=== PATIENT | female | born 1955 | race African-American/Black ===

== ENCOUNTER 2017-12-28 05:30 | Inpatient (IN) | payer SELFPAY ==
[2017-12-28] MEDS ORDERED: ONDANSETRON 4 MG/2 ML VIAL ONE (05:55)
[2017-12-28 06:08] LABS: Absolute Lymphocytes (CBC) 2.6 K/uL (0.7-4.9); Absolute Monocytes 0.8 K/uL (0.1-1.3); Absolute Neutrophil 8.9 K/uL (1.8-8.0); Basophils % 0.3 % (0-1.3); Eosinophils % 1.8 % (0-4.4); Hematocrit 40.8 % (36.0-45.0); Lymphocytes % 20.8 % (15.3-44.8); MCH 26.1 pg (27.0-35.0); MCV 80.9 fL (80-100); MPV 10.2 fL (7.6-11.3); RBC Red Blood Cell Count 5.04 M/uL (3.86-4.86)
[2017-12-28 06:18] LABS: ALT/SGPT 16 U/L (12-78); AST/SGOT 12 U/L (15-37); Albumin 3.4 g/dL (3.4-5.0); Alkaline Phosphatase 113 U/L (45-117); BUN Blood Urea Nitrogen 16 mg/dL (7-18); Bicarbonate 27 mmol/L (21-32); Bilirubin Direct < 0.1 mg/dL (0-0.2); Bilirubin Total 0.3 mg/dL (0.2-1.0); Glucose Level 155 mg/dL (74-106); Lipase 83 U/L (73-393); Potassium 3.9 mmol/L (3.5-5.1); Protein, Total 7.8 g/dL (6.4-8.2); Sodium Level 141 mmol/L (136-145)
[2017-12-28] MEDS ORDERED: CEFTRIAXONE/SWI 1gm 1 GM/10 ML SYR ONE (07:05)
[2017-12-28] MEDS ORDERED: NA CHLORIDE 0.9% 1,000 ML ONE (07:35)
[2017-12-28] MEDS ORDERED: MORPHINE 4 MG/ML SYR ONE (07:35)
[2017-12-28] MEDS ORDERED: KETOROLAC 30 MG/ML INJ ONE (07:35)
--- NOTE | 2017-12-28 08:54 | EDPHYS ---
Physician Documentation [facility] Name: Ethel Allen Age: 62 yrs Sex: Female : 1955 Arrival Date: 12/28/2017 Time: 05:35 Bed 8 Private MD: ED Physician Jeramy Asif HPI: 12/28 06:32 This 62 yrs old Black Female presents to ER via EMS with complaints of Flank Pain. [facility] 06:32 The patient complains of pain in the left flank. The pain does not radiate. Onset: The [facility] symptoms/episode began/occurred acutely, last night. Modifying factors: The symptoms are alleviated by nothing. the symptoms are aggravated by nothing. This is a 62 year old female with a history of HTN that presents to the ED with left flank pain beginning acutely last night. Patient admits to hematuria. Denies fever. Denies recent surgery. . Historical: - Allergies: 05:40 No Known Allergies; fc - Home Meds: 05:40 None [Active]; fc - PMHx: 05:40 ARTHRITIS MARY LEG; Enlarged Heart; Gout; Hypertension; fc - PSHx: 05:40 None; fc - Immunization history:: Last tetanus immunization: unknown. - Social history:: Smoking status: Patient uses tobacco products, chewing tobacco. - Ebola Screening: : Patient negative for fever greater than or equal to 101.5 degrees Fahrenheit, and additional compatible Ebola Virus Disease symptoms Patient denies exposure to infectious person Patient denies travel to an Ebola-affected area in the 21 days before illness onset. ROS: 06:32 Constitutional: Negative for fever, chills, and weight loss, Cardiovascular: Negative jm for chest pain, palpitations, and edema, Respiratory: Negative for shortness of breath, cough, wheezing, and pleuritic chest pain. 06:32 MS/Extremity: Negative for injury and deformity, Skin: Negative for injury, rash, and discoloration, Neuro: Negative for headache, weakness, numbness, tingling, and seizure. 06:32 Abdomen/GI: Positive for flank pain. 06:32 All other systems are negative. Exam: 06:32 Head/Face: atraumatic. Chest/axilla: Normal chest wall appearance and motion. jm Cardiovascular: Regular rate and rhythm. No edema appreciated Respiratory: Normal respirations, no respiratory distress appreciated 06:32 Constitutional: The patient appears in no acute distress, alert, awake. 06:32 Abdomen/GI: Inspection: obese Bowel sounds: normal, Palpation: abdomen is soft and non-tender, in all quadrants. 06:32 Back: CVA tenderness, that is mild, is noted on the left. 06:32 Musculoskeletal/extremity: ROM: intact in all extremities. 06:32 Skin: Appearance: Color: normal in color. 06:32 Neuro: Orientation: is normal, Mentation: is normal, Memory: is normal. 06:32 Psych: Behavior/mood is pleasant, cooperative. Vital Signs: 05:35 BP 193 / 110; Pulse 98; Resp 18; Temp 98.0(O); Pulse Ox 95% on R/A; Weight 176.9 kg fc (R); Height 5 ft. 5 in. (165.10 cm) (R); Pain 9/10; 06:30 BP 186 / 83; Pulse 86; Resp 18; Pulse Ox 97% on R/A; Pain 5/10; tl2 07:00 BP 187 / 83; Pulse 88; Resp 18; Pulse Ox 95% ; sv 07:44 BP 172 / 98; Pulse 87; Resp 18; Pulse Ox 98% ; sv 08:52 BP 184 / 92; Pulse 83; Resp 18; Pulse Ox 97% ; sv 09:48 BP 178 / 88; Pulse 87; Resp 18; Pulse Ox 98% on R/A; Pain 3/10; sg 05:35 Body Mass Index 64.90 (176.90 kg, 165.10 cm) fc MDM: 06:15 Patient medically screened. [facility] 08:51 Data reviewed: vital signs, nurses notes, lab test result(s), radiologic studies, CT [facility] scan. Data interpreted: Pulse oximetry: on room air is 98 %. Interpretation: normal. Counseling: I had a detailed discussion with the patient and/or guardian regarding: the historical points, exam findings, and any diagnostic results supporting the discharge/admit diagnosis, lab results, radiology results, the need for further work-up and treatment in the hospital. ED course: I discussed the patient with Dr. Chand whom accepted admission. I discussed the patient with Dr. Archuleta whom will consult on admission. . 12/28 05:43 Order name: Basic Metabolic Panel; Complete Time: 06:44 tl2 12/28 05:43 Order name: CBC with Diff; Complete Time: 06:44 tl2 12/28 05:43 Order name: Creatinine for Radiology; Complete Time: 06:15 tl2 12/28 05:43 Order name: Hepatic Function; Complete Time: 06:44 tl2 12/28 05:43 Order name: Lipase; Complete Time: 06:44 tl2 12/28 05:43 Order name: CT Stone Protocol 2 12/28 05:43 Order name: IV Saline Lock; Complete Time: 05:43 tl2 12/28 05:43 Order name: Labs collected and sent; Complete Time: 05:43 tl2 12/28 08:24 Order name: Abdomen 1 View (KUB) XRAY jmm Administered Medications: 05:53 Drug: Zofran 4 mg Route: IVP; Site: left antecubital; tl2 07:04 Follow up: Response: No adverse reaction; Nausea is decreased tl2 07:04 Drug: Rocephin - (cefTRIAXone) 1 grams Route: IVPB; Infused Over: 30 mins; Site: left tl2 antecubital; 07:38 Drug: Ketorolac 30 mg Route: IVP; Site: left antecubital; sg 07:38 Drug: NS 0.9% 1000 ml Route: IV; Rate: 1 bolus; Site: left antecubital; sg 07:38 Drug: morphine 2 mg Route: IVP; Site: left antecubital; sg Disposition: 12/28/17 08:53 Hospitalization ordered by Abraham Chand for Observation. Preliminary diagnosis are Calculus of kidney and ureter, Urinary tract infection, site not specified. - Bed requested for Telemetry/MedSurg (observation). - Status is Observation. sg - Condition is Stable. - Problem is new. - Symptoms have improved. UTI on Admission? Yes Addendum: 01/12/2018 07:21 Co-signature as Attending Physician, Jeramy Asif MD Available for consultation at p s1 all times. . Signatures: Dispatcher [employer] EDSergio Jackson, RN Gary Valentino PA PA jmm Chretien, Felicia RN AASHISH Yue Quinteros RN RN 2 Ethel Calixto RN RN df Singer, Phillip, MD MD ps1 Corrections: (The following items were deleted from the chart) 09/22 09:13 08:53 Hospitalization Ordered by Abraham Chand MD for Observation. Preliminary df diagnosis is Calculus of kidney and ureter; Urinary tract infection, site not specified. Bed requested for Telemetry/MedSurg (observation). Status is Observation. Condition is Stable. Problem is new. Symptoms have improved. UTI on Admission? Yes. [facility] 10:02 09:13 12/28/2017 08:53 Hospitalization Ordered by Abraham Chand MD for Observation. sg Preliminary diagnosis is Calculus of kidney and ureter; Urinary tract infection, site not specified. Bed requested for Telemetry/MedSurg (observation). Status is Observation. Condition is Stable. Problem is new. Symptoms have improved. UTI on Admission? Yes. df
--- NOTE | 2017-12-28 08:54 | ER ---
Nurse's Notes [facility] Name: Ethel Allen Age: 62 yrs Sex: Female : 1955 Arrival Date: 12/28/2017 Time: 05:35 Bed 8 Private MD: Diagnosis: Calculus of kidney and ureter;Urinary tract infection, site not specified Presentation: 12/28 05:35 Presenting complaint: Patient states: that she is having left sided flank pain that started at 0230. Also has a headache. Pt bp high per EMS at 225/121 but pt is supposed to be taking Coreg 25 mg daily. Losartan/HCTZ 100/25 mg daily, Amlodipine daily, and Allopurinol 100 mg daily but cannot afford them. Transition of care: patient was not received from another setting of care. Onset of symptoms was December 28, 2017 at 02:30. Risk Assessment: Do you want to hurt yourself or someone else? Patient reports no desire to harm self or others. Initial Sepsis Screen: Does the patient meet any 2 criteria? HR > 90 bpm. Yes Does the patient have a suspected source of infection? No. Patient's initial sepsis screen is negative. Care prior to arrival: Medication(s) given: Toradol 30 mg ivp IV initiated. 20 GA, in the left antecubital area, Glucose check: 154. 05:35 Method Of Arrival: EMS: [facility] 05:35 Acuity: REYNA 3 fc Historical: - Allergies: 05:40 No Known Allergies; fc - Home Meds: 05:40 None [Active]; fc - PMHx: 05:40 ARTHRITIS MARY LEG; Enlarged Heart; Gout; Hypertension; fc - PSHx: 05:40 None; fc - Immunization history:: Last tetanus immunization: unknown. - Social history:: Smoking status: Patient uses tobacco products, chewing tobacco. - Ebola Screening: : Patient negative for fever greater than or equal to 101.5 degrees Fahrenheit, and additional compatible Ebola Virus Disease symptoms Patient denies exposure to infectious person Patient denies travel to an Ebola-affected area in the 21 days before illness onset. Screenin:38 Abuse screen: Denies threats or abuse. Nutritional screening: No deficits noted. Tuberculosis screening: No symptoms or risk factors identified. Fall Risk None identified. Assessment: 05:35 General: Appears in no apparent distress. uncomfortable, Behavior is calm, cooperative, tl2 appropriate for age. Pain: Complains of pain in left flank. Neuro: Level of Consciousness is awake, alert, obeys commands, Oriented to person, place, time, situation. Respiratory: Airway is patent Respiratory effort is even, unlabored, Respiratory pattern is regular, symmetrical. GI: Reports nausea, vomiting. : No signs and/or symptoms were reported regarding the genitourinary system. Derm: Skin is pink, warm \\T\\ dry. 06:30 Reassessment: Patient appears in no apparent distress at this time. Patient and/or tl2 family updated on plan of care and expected duration. Pain level reassessed. Patient is alert, oriented x 3, equal unlabored respirations, skin warm/dry/pink. 07:39 Reassessment: Patient appears in no apparent distress at this time. Patient and/or sg family updated on plan of care and expected duration. Pain level reassessed. Patient is alert, oriented x 3, equal unlabored respirations, skin warm/dry/pink. Patient states symptoms have not improved. 09:15 Reassessment: pt IV dc'd while off unit in Xray per EloiseAudience, will insert new IV sg when pt returns from xray. 09:50 Reassessment: pt reports hives to right forearm, reports "had them before from time to sg time but never this bad." Val JACINTO notified, pt to be admitted to 229 at this time. 10:02 Respiratory: Airway is patent Respiratory effort is even, unlabored, Respiratory sg pattern is regular, symmetrical, Denies cough, shortness of breath labored breathing, pain with respiration, pain with cough, pain with movement. Vital Signs: 05:35 BP 193 / 110; Pulse 98; Resp 18; Temp 98.0(O); Pulse Ox 95% on R/A; Weight 176.9 kg fc (R); Height 5 ft. 5 in. (165.10 cm) (R); Pain 9/10; 06:30 BP 186 / 83; Pulse 86; Resp 18; Pulse Ox 97% on R/A; Pain 5/10; tl2 07:00 BP 187 / 83; Pulse 88; Resp 18; Pulse Ox 95% ; sv 07:44 BP 172 / 98; Pulse 87; Resp 18; Pulse Ox 98% ; sv 08:52 BP 184 / 92; Pulse 83; Resp 18; Pulse Ox 97% ; sv 09:48 BP 178 / 88; Pulse 87; Resp 18; Pulse Ox 98% on R/A; Pain 3/10; sg 05:35 Body Mass Index 64.90 (176.90 kg, 165.10 cm) ED Course: 05:35 Patient arrived in ED. fc 05:35 Arm band placed on Patient placed in an exam room, on a stretcher. fc 05:37 Triage completed. fc 05:38 Patient has correct armband on for positive identification. Bed in low position. Call fc light in reach. Side rails up X2. Pulse ox on. NIBP on. 05:38 No provider procedures requiring assistance completed. Maintain EMS IV. Dressing fc intact. Good blood return noted. Site clean \\T\\ dry. Gauge \\T\\ site: 20 gauge to left a/c. 05:[address] via stretcher. kw1 06:07 Gary Fermin PA is PHCP. jm 06:07 Jeramy Asif MD is Attending Physician. jmm 06:16 CT Stone Protocol In Process Unspecified. EDMS 06:20 CT completed. Patient tolerated procedure well. Patient moved back from CT. kw1 07:37 Sergio Conway, RN is Primary Nurse. sg 08:53 Abraham Chand MD is Hospitalizing Provider. jmm 09:49 Inserted saline lock: 22 gauge in left hand, using aseptic technique. sg 10:01 Patient admitted, IV remains in place. intact, No redness/swelling at site. sg Administered Medications: 05:53 Drug: Zofran 4 mg Route: IVP; Site: left antecubital; tl2 07:04 Follow up: Response: No adverse reaction; Nausea is decreased tl2 07:04 Drug: Rocephin - (cefTRIAXone) 1 grams Route: IVPB; Infused Over: 30 mins; Site: left tl2 antecubital; 07:38 Drug: Ketorolac 30 mg Route: IVP; Site: left antecubital; sg 07:38 Drug: NS 0.9% 1000 ml Route: IV; Rate: 1 bolus; Site: left antecubital; sg 07:38 Drug: morphine 2 mg Route: IVP; Site: left antecubital; sg Outcome: 08:53 Decision to Hospitalize by Provider. derek 10:01 Admitted to Tele accompanied by tech, via wheelchair, room 229, with chart, Report sg called to Maryana ZENDEJAS 10:01 Condition: good 10:01 Instructed on the need for admit, safety practices, Demonstrated understanding of instructions, follow-up care. 10:02 Patient left the ED. sg Signatures: Dispatcher [employer] Katiuska De Anda RN RN sv Gay, Steven, RN RN Gary Arredondo PA PA jmm Chretien, Felicia, RN RN Yue Quinteros RN RN tl2 Suzan Weller kw1 Corrections: (The following items were deleted from the chart) 05:41 05:35 Presenting complaint: Patient states: that she is having left sided flank pain fc that started at 0230. Also has a headache. Pt bp high per EMS at 225/121 but pt is supposed to be taking Coreg, Losartan, Amlodipine, and Allopurinol but cannot afford them. fc
[2017-12-28] MEDS ORDERED: MORPHINE 2 MG/ML SYR IV PRN (10:08)
--- NOTE | 2017-12-28 10:13 | P.HP ---
Certification for Inpatient With expected LOS: <2 Midnights Patient will require the following post-hospital care: None Practitioner: I am a practitioner with admitting privileges, knowledge of patient current condition, hospital course, and medical plan of care. Services: Services provided to patient in accordance with Admission requirements found in Title 42 Section 412.3 of the Code of Federal Regulations Patient History Date of Service: 12/29/17 Reason for admission: Left-sided flank pain hematuria History of Present Illness: Patient is 62 years of age admitted with left-sided flank pain history of recent hematuria headaches and was admitted to the hospital denies any fever chills no prior history of genitourinary problems Allergies No Known Allergies Allergy (Verified 12/28/17 10:43) Home medications list reviewed: Yes Home Medications: Allopurinol 100 mg PO DAILY 12/28/17 Amlodipine Besylate 5 mg PO DAILY 12/28/17 Carvedilol [Coreg] 25 mg PO BID 12/28/17 Losartan Potassium [Cozaar] 100 mg PO DAILY 12/28/17 - Past Medical/Surgical History -: High blood pressure -: Hypothyroidism -: Arthritis -: Doubt - Family History Mother History Unknown: Yes Father History Unknown: Yes - Social History Smoking Status: Never smoker Review of Systems 10-point ROS is otherwise unremarkable Physical Examination - Vital Signs Blood Pressure: 178/88 Pulse: 87 Respirations: 18 Pulse Ox (%): 98 (RA) - Physical Exam General: Alert, Oriented x3 HEENT: Atraumatic Neck: Supple Respiratory: Clear to auscultation bilaterally Cardiovascular: No edema, Normal S1 S2 Gastrointestinal: Other (Patient has left flank tenderness) - Studies Laboratory Data (last 24 hrs) 12/28/17 05:50: Creatinine 0.80 12/28/17 05:50: WBC 12.5 H, Hgb 13.1, Hct 40.8, Plt Count 183 12/28/17 05:50: Sodium 141, Potassium 3.9, BUN 16, Creatinine 0.80, Glucose 155 H, Total Bilirubin 0.3, AST 12 L, ALT 16, Alkaline Phosphatase 113, Lipase 83 Assessment and Plan - Problems (Diagnosis) (1) Flank pain Current Visit: Yes Status: Acute Plan: Patient is 62 years of age admitted with hematuria and flank pain possible nephrolithiasis or urinary tract infection continue with Rocephin labs ordered CT scan of the abdomen and pelvis without contrast labs reviewed white count mildly elevated morphine for pain relief also Vicodin as needed regular diet and urology consulted : 6 millimeter calculus left ureterovesical junction resulting in moderate left hydronephrosis (2) Hypertension Current Visit: Yes Status: Acute Plan: Once the list is verified patient takes Coreg losartan and amlodipine they will all be resumed Qualifiers: Hypertension type: essential hypertension Qualified Code(s): I10 - Essential (primary) hypertension (3) Nephrolithiasis Current Visit: Yes Status: Acute Plan to discharge in: 24 Hours - Advance Directives Does patient have a Living Will: No Does patient have a Durable POA for Healthcare: No
[2017-12-28 10:49] VITALS: BMI 64.9
[2017-12-28] MEDS: HYDROCODONE/APAP 5/325 MG TAB PO PRN (11:49)
[2017-12-28] MEDS: LOSARTAN POTASSIUM 50 MG TABLET PO SCH (11:50)
[2017-12-28] MEDS: hydroCHLOROthiazide 25 MG TAB PO SCH (11:50)
[2017-12-28] MEDS: D5W 1,000 ML with NA BICARB 8.4% 100 MEQ IV SCH ×4 (16:50→20:15)
[2017-12-28] MEDS: CARVEDILOL 25 MG TAB PO SCH (17:06)
[2017-12-28] MEDS: ALLOPURINOL 300 MG TAB PO SCH (20:15)
[2017-12-28 22:53] LABS: Urine Appearance CLOUDY; Urine Bilirubin NEGATIVE (NEG); Urine Blood 1+ (NEG); Urine Color YELLOW; Urine Glucose NEGATIVE (NEG); Urine Protein TRACE (NEG); Urine Urobilinogen 0.2 mg/dL (0.2-1.0)
[2017-12-28 23:13] LABS: Urine Microscopic Reflex ORDER UMIC
[2017-12-29] LABS: Urine Bacteria <20 /HPF (<20); Urine Culture Reflex Order NOT NEEDED
[2017-12-29] MEDS: CARVEDILOL 25 MG TAB PO SCH ×2 (05:15→17:07)
[2017-12-29 06:00] LABS: Absolute Lymphocytes (CBC) 1.8 K/uL (0.7-4.9); Absolute Monocytes 1.1 K/uL (0.1-1.3); Absolute Neutrophil 10.6 K/uL (1.8-8.0); Basophils % 0.5 % (0-1.3); Eosinophils % 1.6 % (0-4.4); Hematocrit 38.3 % (36.0-45.0); Lymphocytes % 13.4 % (15.3-44.8); MCH 26.4 pg (27.0-35.0); MCV 81.6 fL (80-100); MPV 10.2 fL (7.6-11.3); Monocytes % 7.9 % (3.3-12.3); RBC Red Blood Cell Count 4.69 M/uL (3.86-4.86)
[2017-12-29 06:14] LABS: Potassium 3.8 mmol/L (3.5-5.1)
--- NOTE | 2017-12-29 08:27 | RAD REPORT ---
EXAM DESCRIPTION: RAD - Abdomen 1 View (KUB) - 12/28/2017 11:28 pm CLINICAL HISTORY: Abdominal pain, flank pain COMPARISON: CT study same date FINDINGS: Motion degrades the examination. Patient has a prominent large and small bowel pattern. No bowel obstruction, free air or pneumatosis. Calcifications near the left renal pelvis are probably v ascular. Patient has numerous arterial and phlebolith calcifications in the upper to mid pelvis. CT imaging showed a 7-8 mm calcification at the left UVJ. That calcification is not definitively seen on plain film. On 1 image centered in the left lower quadrant there is an oval density that is isode nse to surrounding tissues. This is potentially the calcification. The AP pelvis film does not demons trate this finding. Severe bilateral hip joint degenerative changes are present. IMPRESSION: Previously detailed obstructing calculus at the left UVJ is not definitively defined by this examination. There is an isodense focal finding left lower quadrant on 1 of the views that is po tentially the obstructing calculus.
--- NOTE | 2017-12-29 08:37 | RAD REPORT ---
EXAM DESCRIPTION: CT - Stone Protocol - 12/28/2017 11:28 pm CLINICAL HISTORY: Abdominal pain. Left flank pain COMPARISON: None. TECHNIQUE: Computed axial tomography of the abdomen pelvis was obtained without oral or IV contrast. Lack of IV and oral contrast limits evaluation of solid organs, bowel, and vessels. Coronal reformat barbara images were obtained and reviewed. Preliminary report was generated by [employer] and re viewed prior to dictation Due to hospital technical malfunction the exam could not be dictated yesterday All CT scans are performed using dose optimization technique as appropriate and may include automated exposure control or mA/KV adjustment according to patient size. FINDINGS: Renal arterial calcifications are present. Couple of tiny nonobstructing renal calculi are noted. Moderate left hydronephrosis is present. The left ureter is dilated. A 6 millimeter calculus is present at the left ureterovesical junction Hounsfield unit 450. Right renal cortical thinning is present The liver, spleen, pancreas and adrenals appear grossly normal There is no evidence of diverticulitis. Spondylosis involves lumbar spine resulting in spinal stenosi s Small umbilical hernia is noted IMPRESSION: 6 millimeter calculus left ureterovesical junction resulting in moderate left hydronephr osis
[2017-12-29] MEDS ORDERED: CEFTRIAXONE 1 GM/NS 50 ML 1 GM/50 ML BAG IV SCH (09:00)
[2017-12-29] MEDS: hydroCHLOROthiazide 25 MG TAB PO SCH (09:52)
[2017-12-29] MEDS: ALLOPURINOL 300 MG TAB PO SCH ×2 (09:52→20:47)
[2017-12-29] MEDS: CEFTRIAXONE/SWI 1gm 1 GM/10 ML SYR IV SCH (09:52)
[2017-12-29] MEDS: LOSARTAN POTASSIUM 50 MG TABLET PO SCH (09:52)
[2017-12-29] MEDS: D5W 1,000 ML with NA BICARB 8.4% 100 MEQ IV SCH ×4 (11:00→17:08)
--- NOTE | 2017-12-29 11:01 | P.PN ---
Subjective Date of Service: 12/29/17 Chief Complaint: Nephrolithiasis Subjective: Improving (Patient is improving flank pain has improved seen by Dr. Archuleta patient refused surgery) Review of Systems Unremarkable Physical Examination - Vital Signs Temperature: 97.5 F Blood Pressure: 178/88 Pulse: 87 Respirations: 18 Pulse Ox (%): 98 (RA) - Physical Exam General: Alert, Oriented x3 Respiratory: Clear to auscultation bilaterally Cardiovascular: No edema, Normal S1 S2 Gastrointestinal: Normal bowel sounds, Soft and benign Assessment & Plan - Problems (Diagnosis) (1) Hypertension Current Visit: Yes Status: Acute Plan: Once the list is verified patient takes Coreg losartan and amlodipine they will all be resumed blood pressure is mildly elevated Qualifiers: Hypertension type: essential hypertension Qualified Code(s): I10 - Essential (primary) hypertension (2) Nephrolithiasis Current Visit: Yes Status: Acute Plan: Patient was initially seen by Dr. Archuleta she refused surgery I advised her to undergo a stent placement she has agreed to do so in level has declined she does have left-sided hydronephrosis with renal function is abnormal continue with IV fluids and antibiotics
[2017-12-29 14:53] LABS: Urine Appearance CLEAR; Urine Bilirubin NEGATIVE (NEG); Urine Blood NEGATIVE (NEG); Urine Color YELLOW; Urine Glucose NEGATIVE (NEG); Urine Protein NEGATIVE (NEG); Urine Specific Gravity 1.015 (1.005-1.030); Urine Urobilinogen 0.2 mg/dL (0.2-1.0)
[2017-12-29 15:01] LABS: Urine Microscopic Reflex NO UMIC
[2017-12-29] MEDS: HYDROCODONE/APAP 5/325 MG TAB PO PRN (18:22)
[2017-12-29] MEDS ORDERED: DIPHENHYDRAMINE 25 MG TAB/CAP PO PRN (18:52)
[2017-12-30] MEDS: D5W 1,000 ML with NA BICARB 8.4% 100 MEQ IV SCH ×8 (00:37→23:40)
[2017-12-30] MEDS: CARVEDILOL 25 MG TAB PO SCH ×2 (05:12→16:56)
--- NOTE | 2017-12-30 08:18 | CON ---
History Of Present Illness: The patient is a 62-year-old lady admitted for left flank pain and recen t hematuria. She came to the emergency room. A CT scan was performed showing a 7.2 mm stone at left UVJ with hydroureteronephrosis. She also had small calcifications in both kidney centrally and she has lots of arthrosclerotic calcification. She has a history of gout. Her Hounsfield unit was about 400 units, indicating most likely uric acid stone. She has a history of gout, which is consistent w ith it. Her daughter says she has never had a kidney stone before. This is her first time. It does seem like she has gout and uric acid stone, which can be treated either surgically or medically. Flory tom is leaning towards medical treatment where we could alkalinize the urine and hopefully stone will d issolve and pass. She is hesitant about doing any surgery such as cysto-ureteroscopy and stone extra ction with stent placement. Home Medications: Reviewed. Past Medical History: Hypertension, hypothyroidism, arthritis, and gout. Smoking History: Never smoked. Review of Systems: A 10-point review of systems unremarkable. Physical Examination: Vital Signs: Temperature afebrile, pulse 87, blood pressure 193/96, and pain level 7. Saturations 9 8%. HEENT: Atraumatic, normocephalic. Lungs: Clear. Heart: S1-S2. Abdomen: Soft. Nontender. Extremities: Normal range of motion. Laboratory Data: Hematology; white count 12.5, H and H 13 and 40.8, platelet count 183. Chemistry s hows sodium 141, potassium 3.9, chloride 107, carbon dioxide 27, BUN 16, creatinine 0.8. GFR 88. Gl ucose 155, calcium 9.3. Liver function normal. Lipase normal. Uric acid is pending. UA pending. CT scan as mentioned above. Assessment: A 7 mm left ureterovesical junction stone, most likely uric acid stone. Options are: 1.To do watchful waiting with alkalinization of the urine. 2.Cystoscopy, stent placement plus or minus ureteroscopy, possible basket, possible lithotripsy. The patient is leaning towards more conservative management. The patient was not n.p.o., so we are n ot able to do anything today. It is up to her final decision. If she does want something to be done surgically, it will have to be in a.m. ANGEL/MICHEL Voice ID: [id number] Report ID: [id number]
[2017-12-30] MEDS: ALLOPURINOL 300 MG TAB PO SCH ×2 (08:51→21:22)
[2017-12-30] MEDS: LOSARTAN POTASSIUM 50 MG TABLET PO SCH (08:51)
[2017-12-30] MEDS: hydroCHLOROthiazide 25 MG TAB PO SCH (08:51)
[2017-12-30] MEDS: HYDROCODONE/APAP 5/325 MG TAB PO PRN ×2 (08:52→16:56)
[2017-12-30] MEDS: CEFTRIAXONE/SWI 1gm 1 GM/10 ML SYR IV SCH (08:52)
[2017-12-30 10:04] LABS: Absolute Lymphocytes (CBC) 1.7 K/uL (0.7-4.9); Absolute Monocytes 1.4 K/uL (0.1-1.3); Absolute Neutrophil 9.9 K/uL (1.8-8.0); Basophils % 0.3 % (0-1.3); Eosinophils % 1.7 % (0-4.4); Hematocrit 36.3 % (36.0-45.0); Lymphocytes % 12.9 % (15.3-44.8); MCH 25.8 pg (27.0-35.0); MCV 80.7 fL (80-100); MPV 9.6 fL (7.6-11.3); Monocytes % 10.2 % (3.3-12.3); RBC Red Blood Cell Count 4.49 M/uL (3.86-4.86)
[2017-12-30 11:56] LABS: Albumin 2.9 g/dL (3.4-5.0); Bilirubin Total 0.3 mg/dL (0.2-1.0); Potassium 3.7 mmol/L (3.5-5.1); Protein, Total 6.6 g/dL (6.4-8.2)
--- NOTE | 2017-12-30 12:55 | P.PN ---
Subjective Date of Service: 12/30/17 Chief Complaint: Nephrolithiasis Patient seen and examined at bedside with RN. Chart reviewed. Case discussed with urology. Patient has no complaints overnight. Has been doing well overall. Is scheduled for lithotripsy tomorrow. Review of Systems 10-point ROS is otherwise unremarkable Physical Examination - Vital Signs Temperature: 97.2 F Blood Pressure: 188/76 Pulse: 62 Respirations: 18 Pulse Ox (%): 92 - Physical Exam General: Alert, In no apparent distress HEENT: Atraumatic, PERRLA, EOMI Neck: Supple, JVD not distended Respiratory: Clear to auscultation bilaterally, Normal air movement Cardiovascular: Regular rate/rhythm, Normal S1 S2 Gastrointestinal: Normal bowel sounds, No tenderness Musculoskeletal: No tenderness Integumentary: No rashes Neurological: Normal speech, Normal tone, Normal affect Lymphatics: No axilla or inguinal lymphadenopathy - Studies Medications List Reviewed: Yes Assessment And Plan - Current Problems (Diagnosis) (1) Nephrolithiasis Onset Date: 12/30/17 Current Visit: Yes Status: Acute Plan: Patient with flank pain with nephrolithiasis -urology consulted. Appreciated recommendations at this time -scheduled for lithotripsy tomorrow. -currently with IV antibiotics. Urine culture pending -will followup postprocedure. (2) FRENCH (acute kidney injury) Current Visit: Yes Status: Acute Plan: Acute kidney injury most likely secondary to obstructive uropathy -BUN creatinine elevated today. -will continue with IV fluids and avoid nephrotoxic agents. (3) Hypertension Onset Date: 12/30/17 Current Visit: Yes Status: Chronic Qualifiers: Hypertension type: essential hypertension Qualified Code(s): I10 - Essential (primary) hypertension (4) Obesity Current Visit: Yes Status: Chronic Qualifiers: Obesity type: due to excess calories Obesity classification: adult class 3 (BMI >= 40) Body mass index: BMI 60.0-69.9 - Plan Currently awaiting clinical improvement at this time. Lithotripsy scheduled for tomorrow. Will continue IV antibiotics and fluids at this time. Will follow up post procedure Discharge Plan: Home Plan to discharge in: 48 Hours - Code Status/Comfort Care Code Status Assessed: Yes Critical Care: No
[2017-12-30] MEDS ORDERED: POLYETHYL GLY 3350 17 GM/DOSE PO ONE (17:07)
--- NOTE | 2017-12-30 19:09 | PN ---
Subjective: The patient is doing well. Has been passing some stone fragments. I am not sure all th e stone is passed yet. We will allow her to do so the next 24 hours. Objective: Vital Signs: 97.2, pulse 62, respirations 18, BP 188/76, sats 92%. Laboratory Data: White count 13.3, H and H are 11.6 and hematocrit 36.3, platelet count 169. Her ur ine did show a pH of 5.0, blood 1+, nitrite negative, esterase negative. Her creatinine is still kayce vated to 1.60, actually up from when she came in. Assessment And Plan: She may still need a procedure tomorrow unless her creatinine turns around by celine morales. We could do a CT scan of the pelvis to see if she has passed the stone versus ureteroscopy s tone extraction. She says she will sign the consent form once her daughter comes. She understands a ll the general information, alternatives, and risks and wishes to proceed. ANGEL/MICHEL Voice ID: [id number] Report ID: [id number]
[2017-12-30] MEDS: DOCUSATE NA 100 MG CAP PO SCH (21:22)
[2017-12-31] MEDS: CARVEDILOL 25 MG TAB PO SCH ×2 (05:36→17:18)
[2017-12-31] MEDS: D5W 1,000 ML with NA BICARB 8.4% 100 MEQ IV SCH ×4 (07:00→14:20)
[2017-12-31] MEDS: DOCUSATE NA 100 MG CAP PO SCH ×2 (07:32→20:56)
[2017-12-31] MEDS: ALLOPURINOL 300 MG TAB PO SCH ×2 (07:32→21:01)
[2017-12-31] MEDS: hydroCHLOROthiazide 25 MG TAB PO SCH (09:00)
[2017-12-31] MEDS: LOSARTAN POTASSIUM 50 MG TABLET PO SCH (09:00)
[2017-12-31] MEDS: CEFTRIAXONE/SWI 1gm 1 GM/10 ML SYR IV SCH (09:23)
[2017-12-31] MEDS ORDERED: Ringers Lactate 1,000 ML IV ONE (10:12)
[2017-12-31] MEDS ORDERED: FENTANYL CITR 100 MCG/2 ML ONE (10:54)
[2017-12-31] MEDS ORDERED: PROPOFOL 200 MG/20 ML VIAL IV ONE (10:54)
[2017-12-31] MEDS ORDERED: LIDOCAINE 2% MPF 5 ML VIAL ONE (10:55)
[2017-12-31] MEDS ORDERED: MIDAZOLAM HCL 2 MG/2 ML INJ ONE (10:55)
[2017-12-31] MEDS ORDERED: SUCCINYLCHOLINE 20 MG/ML (10 ML) IV ONE (11:07)
--- NOTE | 2017-12-31 12:51 | RAD REPORT ---
EXAM DESCRIPTION: RAD - Urethrocystogrphy Retrograde - 12/31/2017 12:33 pm FINDINGS: Six cine loop sequences were obtained during a fluoroscopic assisted left retrograde urete ral gram. No suspicious or unexpected finding. Fluoro time was 1 minutes 59 seconds.
[2017-12-31 13:06] LABS: Urine Bacteria 20-50 /HPF (<20); Urine Culture Reflex Order NOT NEEDED; Urine RBC >50 /HPF (NONE SEEN)
--- NOTE | 2017-12-31 13:20 | P.PN ---
Subjective Date of Service: 12/31/17 Chief Complaint: Nephrolithiasis Patient seen and examined at bedside with RN. Chart reviewed. Case discussed with urology. Patient has no complaints overnight. Has been doing well overall. Is scheduled for lithotripsy today Review of Systems 10-point ROS is otherwise unremarkable Physical Examination - Vital Signs Temperature: 97.9 F Blood Pressure: 147/51 Pulse: 75 Respirations: 16 Pulse Ox (%): 92 - Physical Exam General: Alert, In no apparent distress HEENT: Atraumatic, PERRLA, EOMI Neck: Supple, JVD not distended Respiratory: Clear to auscultation bilaterally, Normal air movement Cardiovascular: Regular rate/rhythm, Normal S1 S2 Gastrointestinal: Normal bowel sounds, No tenderness Musculoskeletal: No tenderness Integumentary: No rashes Neurological: Normal speech, Normal tone, Normal affect Lymphatics: No axilla or inguinal lymphadenopathy - Studies Medications List Reviewed: Yes Assessment And Plan - Current Problems (Diagnosis) (1) Nephrolithiasis Onset Date: 12/30/17 Current Visit: Yes Status: Acute Plan: Patient with flank pain with nephrolithiasis -urology consulted. Appreciated recommendations at this time -scheduled for lithotripsy today. -currently with IV antibiotics. -Urine culture pending -will followup postprocedure. (2) FRENCH (acute kidney injury) Current Visit: Yes Status: Acute Plan: Acute kidney injury most likely secondary to obstructive uropathy -BUN creatinine improving today -will continue with IV fluids and avoid nephrotoxic agents. (3) Hypertension Onset Date: 12/30/17 Current Visit: Yes Status: Chronic Qualifiers: Hypertension type: essential hypertension Qualified Code(s): I10 - Essential (primary) hypertension (4) Obesity Current Visit: Yes Status: Chronic Qualifiers: Obesity type: due to excess calories Obesity classification: adult class 3 (BMI >= 40) Body mass index: BMI 60.0-69.9 - Plan Currently awaiting clinical improvement at this time. Lithotripsy scheduled for today. Will continue IV antibiotics and fluids at this time. Will follow up post procedure Discharge Plan: Home Plan to discharge in: 24 Hours - Code Status/Comfort Care Code Status Assessed: Yes Critical Care: No
[2017-12-31] MEDS ORDERED: POLYETHYL GLY 3350 17 GM/DOSE PO ONE (21:43)
--- NOTE | 2017-12-31 22:57 | OP ---
Surgeon: Humaira Archuleta MD Preoperative Diagnosis: Left distal urolithiasis, rule out uric acid stone. Postoperative Diagnosis: Left distal urolithiasis, rule out uric acid stone. Procedure Performed: Cystoscopy, left retrograde pyelogram, EHL lithotripsy of stone, balloon dilation of left distal ureter, ureteroscopy, basket of stone removal, insertion of double-J stent 6 x 30 cm with string left attached, and Castellano placement. Complications: None. Drains: As above. Indications: A 62-year-old came in with flank pain, was diagnosed with a 5 to 7 mm stone at the left UVJ. She has been unable to pass it. She has passed some tiny fragments in the room. She thought she will not be able to pass. It was possible uric acid stone home. We gave her all the general information, alternatives, and risks. She wishes to proceed. Description Of Procedure: She was taken to the operative suite, placed in a supine lithotomy position. The area was prepped and draped. We entered the bladder with a 21-Swiss obturator and 30-degree lens. The left orifice was swollen. The stone was seen crowing at the orifice. With EHL we tried to shock the stone, seems very hard. We have to put a wire by the stone and dilate alongside the stone with a 4 cm balloon 12-Swiss and then placed a guidewire along the stone, placed the ureteroscope in. Basket of stone removed it. We took a second look. No more stones were seen. There may be some fragments from the EHL. We then placed an open ended ureteral catheter and measured the ureter and placed a 6-Swiss x 30 cm stent. Castellano catheter was placed. String was left attached in the vagina to facilitate removal. She will go to the floor in stable condition. ANGEL/MICHEL Voice ID: [id number] Report ID: [id number] MONICO
[2018-01-01] MEDS: HYDROCODONE/APAP 5/325 MG TAB PO PRN (05:36)
[2018-01-01] MEDS: CARVEDILOL 25 MG TAB PO SCH ×2 (05:36→17:18)
[2018-01-01] MEDS: ALLOPURINOL 300 MG TAB PO SCH ×2 (09:29→21:41)
[2018-01-01] MEDS: LOSARTAN POTASSIUM 50 MG TABLET PO SCH (09:29)
[2018-01-01] MEDS: DOCUSATE NA 100 MG CAP PO SCH ×2 (09:29→21:41)
[2018-01-01] MEDS: hydroCHLOROthiazide 25 MG TAB PO SCH (09:29)
[2018-01-01] MEDS: CEFTRIAXONE/SWI 1gm 1 GM/10 ML SYR IV SCH (09:29)
[2018-01-01 12:02] LABS: Absolute Lymphocytes (CBC) 2.3 K/uL (0.7-4.9); Basophils % 0.5 % (0-1.3); Bilirubin Total 0.2 mg/dL (0.2-1.0); Hematocrit 37.1 % (36.0-45.0); Lymphocytes % 18.4 % (15.3-44.8); MCH 26.4 pg (27.0-35.0); MCV 81.4 fL (80-100); Monocytes % 8.1 % (3.3-12.3); Potassium 4.1 mmol/L (3.5-5.1); Protein, Total 7.3 g/dL (6.4-8.2); RBC Red Blood Cell Count 4.55 M/uL (3.86-4.86)
--- NOTE | 2018-01-01 13:24 | P.PN ---
Subjective Date of Service: 01/01/18 Chief Complaint: Nephrolithiasis Patient seen and examined at bedside with RN. Chart reviewed. Case discussed with urology. Patient has no complaints overnight. Has been doing well overall. S/P Lithotripsy yesterday. Doing well overall Review of Systems 10-point ROS is otherwise unremarkable Physical Examination - Vital Signs Temperature: 97.7 F Blood Pressure: 127/68 Pulse: 66 Respirations: 18 Pulse Ox (%): 90 - Physical Exam General: Alert, In no apparent distress HEENT: Atraumatic, PERRLA, EOMI Neck: Supple, JVD not distended Respiratory: Clear to auscultation bilaterally, Normal air movement Cardiovascular: Regular rate/rhythm, Normal S1 S2 Gastrointestinal: Normal bowel sounds, No tenderness Musculoskeletal: No tenderness Integumentary: No rashes Neurological: Normal speech, Normal tone, Normal affect Lymphatics: No axilla or inguinal lymphadenopathy - Studies Medications List Reviewed: Yes Assessment And Plan - Current Problems (Diagnosis) (1) Nephrolithiasis Onset Date: 12/30/17 Current Visit: Yes Status: Acute Plan: Patient with flank pain with nephrolithiasis -urology consulted. Appreciated recommendations at this time -s/p Lithotripsy POD # 1 -currently with IV antibiotics. (2) FRENCH (acute kidney injury) Current Visit: Yes Status: Acute Plan: Acute kidney injury most likely secondary to obstructive uropathy -BUN creatinine improving today -will continue with IV fluids and avoid nephrotoxic agents. (3) Hypertension Onset Date: 12/30/17 Current Visit: Yes Status: Chronic Qualifiers: Hypertension type: essential hypertension Qualified Code(s): I10 - Essential (primary) hypertension (4) Obesity Current Visit: Yes Status: Chronic Qualifiers: Obesity type: due to excess calories Obesity classification: adult class 3 (BMI >= 40) Body mass index: BMI 60.0-69.9 - Plan Currently awaiting clinical improvement at this time. Anticipate Discharge in 24 -48hrs Discharge Plan: Home Plan to discharge in: 24 Hours - Code Status/Comfort Care Code Status Assessed: Yes Critical Care: No
--- NOTE | 2018-01-01 18:20 | PN ---
Subjective: The patient is postoperative day 1 from ureteroscopy stone extraction, feeling well. Objective: Afebrile. Vital signs stable. Laboratory Data: Show white count is still elevated at 12.6, creatinine is improved down to 1.4. GF R is 46. Assessment: Status post left obstructive ureter, status post ureteroscopy, stone removal, stent plac ement. Would like to see the white count return to normal before we send her home. All her cultures have been negative. The pus that was seen coming out the left ureter did not grow any infection, so she may go home on Augmentin tomorrow if she is okay. ANGEL/MICHEL Voice ID: [id number] Report ID: [id number]
[2018-01-02] MEDS: CARVEDILOL 25 MG TAB PO SCH ×2 (05:47→17:47)
[2018-01-02 06:34] LABS: Absolute Lymphocytes (CBC) 2.2 K/uL (0.7-4.9); Absolute Monocytes 0.8 K/uL (0.1-1.3); Absolute Neutrophil 8.3 K/uL (1.8-8.0); Basophils % 0.6 % (0-1.3); Eosinophils % 2.5 % (0-4.4); Hematocrit 39.7 % (36.0-45.0); Lymphocytes % 19.1 % (15.3-44.8); MCH 26.1 pg (27.0-35.0); MCV 81.7 fL (80-100); MPV 9.8 fL (7.6-11.3); Monocytes % 6.6 % (3.3-12.3); RBC Red Blood Cell Count 4.86 M/uL (3.86-4.86)
[2018-01-02 06:54] LABS: Albumin 3.3 g/dL (3.4-5.0); Bilirubin Total 0.2 mg/dL (0.2-1.0); Magnesium 2.3 mg/dL (1.8-2.4); Phosphorus 3.6 mg/dL (2.5-4.9); Potassium 4.6 mmol/L (3.5-5.1)
[2018-01-02] MEDS ORDERED: MORPHINE 4 MG/ML SYR IV PRN (08:47)
[2018-01-02] MEDS: hydroCHLOROthiazide 25 MG TAB PO SCH (09:00)
[2018-01-02] MEDS: LOSARTAN POTASSIUM 50 MG TABLET PO SCH (09:00)
[2018-01-02] MEDS: DOCUSATE NA 100 MG CAP PO SCH ×2 (09:00→21:00)
[2018-01-02] MEDS: CEFTRIAXONE/SWI 1gm 1 GM/10 ML SYR IV SCH (09:00)
[2018-01-02] MEDS: ALLOPURINOL 300 MG TAB PO SCH ×2 (09:00→21:14)
--- NOTE | 2018-01-02 12:06 | P.PN ---
Subjective Date of Service: 01/02/18 Chief Complaint: Nephrolithiasis Patient seen and examined at bedside with RN. Chart reviewed. Case discussed with urology. Patient has no complaints overnight. Has been doing well overall. S/P Lithotripsy. Doing well overall Review of Systems 10-point ROS is otherwise unremarkable Physical Examination - Vital Signs Temperature: 97.5 F Blood Pressure: 142/92 Pulse: 57 Respirations: 18 Pulse Ox (%): 97 - Physical Exam General: Alert, In no apparent distress HEENT: Atraumatic, PERRLA, EOMI Neck: Supple, JVD not distended Respiratory: Clear to auscultation bilaterally, Normal air movement Cardiovascular: Regular rate/rhythm, Normal S1 S2 Gastrointestinal: Normal bowel sounds, No tenderness Musculoskeletal: No tenderness Integumentary: No rashes Neurological: Normal speech, Normal tone, Normal affect Lymphatics: No axilla or inguinal lymphadenopathy - Studies Medications List Reviewed: Yes Assessment And Plan - Current Problems (Diagnosis) (1) Nephrolithiasis Onset Date: 12/30/17 Current Visit: Yes Status: Acute Plan: Patient with flank pain with nephrolithiasis -urology consulted. Appreciated recommendations at this time -s/p Lithotripsy POD # 2 -currently with IV antibiotics. (2) FRENCH (acute kidney injury) Current Visit: Yes Status: Acute Plan: Acute kidney injury most likely secondary to obstructive uropathy -BUN creatinine improving today -will continue with IV fluids and avoid nephrotoxic agents. (3) Hypertension Onset Date: 12/30/17 Current Visit: Yes Status: Chronic Qualifiers: Hypertension type: essential hypertension Qualified Code(s): I10 - Essential (primary) hypertension (4) Obesity Current Visit: Yes Status: Chronic Qualifiers: Obesity type: due to excess calories Obesity classification: adult class 3 (BMI >= 40) Body mass index: BMI 60.0-69.9 - Plan Currently awaiting clinical improvement at this time. Anticipate Discharge in 24 -48hrs Discharge Plan: Home Plan to discharge in: 48 Hours - Code Status/Comfort Care Code Status Assessed: Yes Critical Care: No
--- NOTE | 2018-01-02 17:27 | PN ---
Subjective: The patient is doing well. Objective: Vital Signs: Temperature 97.5, pulse 57, respirations 18, BP 142/92, saturations 97%. Laboratory Data: White count down from 12.6 to 11.6 today, H and H is 12.7 and 39.7. Her neutrophil s were still high, although it went down from 9.0 to 8.3. Assessment: Status post stone extraction, stent placement. Plan: Plan is to keep her for another day, repeat her white count again. Her creatinine is also pawan n today to 1.0 and GFR is up to 68, so should be able to go home soon in another day. Will try to al so remove her stent before she goes. ANGEL/MODNaz Voice ID: [id number] Report ID: [id number]
[2018-01-03 01:58] VITALS: O2SAT 94
[2018-01-03 06:12] LABS: Absolute Lymphocytes (CBC) 2.5 K/uL (0.7-4.9); Absolute Monocytes 0.9 K/uL (0.1-1.3); Absolute Neutrophil 7.8 K/uL (1.8-8.0); Basophils % 0.5 % (0-1.3); Eosinophils % 2.9 % (0-4.4); Hematocrit 37.8 % (36.0-45.0); Lymphocytes % 21.4 % (15.3-44.8); MCH 25.9 pg (27.0-35.0); MCV 81.6 fL (80-100); MPV 9.9 fL (7.6-11.3); Monocytes % 7.7 % (3.3-12.3); RBC Red Blood Cell Count 4.64 M/uL (3.86-4.86)
[2018-01-03] MEDS: CARVEDILOL 25 MG TAB PO SCH (06:58)
[2018-01-03] MEDS: DOCUSATE NA 100 MG CAP PO SCH (09:00)
[2018-01-03] MEDS: CEFTRIAXONE/SWI 1gm 1 GM/10 ML SYR IV SCH ×2 (09:00→09:53)
[2018-01-03] MEDS: LOSARTAN POTASSIUM 50 MG TABLET PO SCH (09:53)
[2018-01-03] MEDS: hydroCHLOROthiazide 25 MG TAB PO SCH (09:53)
[2018-01-03] MEDS: ALLOPURINOL 300 MG TAB PO SCH (09:53)
[2018-01-03] MEDS ORDERED: AMOX TR/K CLAV 400MG CHEW TAB PO ONE (10:15)
[2018-01-03 12:22] VITALS: BP 159/83; TEMP 97.5
--- NOTE | 2018-01-03 15:01 | P.DS ---
Admission Date: 12/28/17 Discharge Date: 01/03/18 Disposition: ROUTINE DISCHARGE Discharge Condition: GOOD Reason for Admission: Nephrolithiasis Consultations: Urology - Problems (1) Nephrolithiasis Onset Date: 12/30/17 Current Visit: Yes Status: Acute (2) FRENCH (acute kidney injury) Current Visit: Yes Status: Acute (3) Hypertension Onset Date: 12/30/17 Current Visit: Yes Status: Chronic Qualifiers: Hypertension type: essential hypertension Qualified Code(s): I10 - Essential (primary) hypertension (4) Obesity Current Visit: Yes Status: Chronic Qualifiers: Obesity type: due to excess calories Obesity classification: adult class 3 (BMI >= 40) Body mass index: BMI 60.0-69.9 Brief History of Present Illness: Patient is 62 years of age admitted with left-sided flank pain history of recent hematuria headaches and was admitted to the hospital denies any fever chills no prior history of genitourinary problems Hospital Course: Overall during the hospital stay patient remained stable Patient was initially admitted to the hospital for nephrolithiasis. Urology was consulted who did lithotripsy here in the hospital was stent placement. Initially patient was started on IV antibiotics and IV fluids for UTI and a KI. Patient after having lithotripsy had marked improvement in her symptoms and her symptoms did improve here in the hospital as well. Patient then was discharged home once her FRENCH had resolved and stent was removed here. Pt did well overall. Thus DC on Levaquin. F.u with Dr Archuleta in 1 to 2 week post discharge Vital Signs/Physical Exam: Temp Pulse Resp BP Pulse Ox 97.5 F 74 18 159/83 H 94 01/03/18 12:00 01/03/18 12:00 01/03/18 12:00 01/03/18 12:01/03/18 12:00 General: Alert, In no apparent distress HEENT: Atraumatic, PERRLA, EOMI Neck: Supple, JVD not distended Respiratory: Clear to auscultation bilaterally, Normal air movement Cardiovascular: Regular rate/rhythm, Normal S1 S2 Gastrointestinal: Normal bowel sounds, No tenderness Musculoskeletal: No tenderness Integumentary: No rashes Neurological: Normal speech, Normal tone, Normal affect Lymphatics: No axilla or inguinal lymphadenopathy Laboratory Data at Discharge: WBC 11.5 K/uL (4.3-10.9) H 01/03/18 05:05 Hgb 12.0 g/dL (12.0-15.0) 01/03/18 05:05 Hct 37.8 % (36.0-45.0) 01/03/18 05:05 Plt Count 203 K/uL (152-406) 01/03/18 05:05 Sodium 138 mmol/L (136-145) 01/02/18 05:58 Potassium 4.6 mmol/L (3.5-5.1) 01/02/18 05:58 BUN 23 mg/dL (7-18) H 01/02/18 05:58 Creatinine 1.00 mg/dL (0.55-1.3) 01/02/18 05:58 Glucose 118 mg/dL (74-106) H 01/02/18 05:58 Uric Acid 6.8 mg/dL (2.6-6.0) H 12/29/17 05:12 Phosphorus 3.6 mg/dL (2.5-4.9) 01/02/18 05:58 Magnesium 2.3 mg/dL (1.8-2.4) 01/02/18 05:58 Total Bilirubin 0.2 mg/dL (0.2-1.0) 01/02/18 05:58 AST 11 U/L (15-37) L 01/02/18 05:58 ALT 17 U/L (12-78) 01/02/18 05:58 Alkaline Phosphatase 100 U/L (45-117) 01/02/18 05:58 Lipase 83 U/L (73-393) 12/28/17 05:50 Home Medications: Allopurinol 100 mg PO DAILY 12/28/17 Amlodipine Besylate 5 mg PO DAILY 12/28/17 Carvedilol [Coreg] 25 mg PO BID 12/28/17 Losartan Potassium [Cozaar] 100 mg PO DAILY 12/28/17 levoFLOXacin [Levaquin] 500 mg PO DAILY #14 tab 01/03/18 New Medications: levoFLOXacin [Levaquin] 500 mg PO DAILY #14 tab Patient Discharge Instructions: Please f.u with Dr Archuleta in 1 week post discharge. New medication. Levaquin 500mg daily for 14 days Diet: Regular Activity: Ad anyi Followup: Geremias,Philmore A, MD [ACTIVE - CAN ADMIT] - 1 Week (Call for appointment)
--- NOTE | 2018-01-03 15:37 | PN ---
Subjective: The patient is feeling well, ready for discharge. Objective: Afebrile, stable. Laboratory Data: This morning, white count is slightly down at 11.5. Her absolute neutrophils are b ack to normal. Assessment And Plan: She is going to go home on antibiotics for a week or 2 more. I removed her kindra nt this morning so she should be good to go. I encouraged loss of hydration. Continue to take her a llopurinol. Avoid less animal protein and more plant based diets and good for her weight loss. ANGEL/MICHEL Voice ID: [id number] Report ID: [id number]
== END 2018-01-03 15:18 | disposition home or self-care (01) | DRG 669 ==
LOC: ER 05:30 → OBSVTOIN 08:55 → ERHOLD 08:55 → 2ND 09:51
PROVIDERS: ADMIT Internal Medicine Sleep Medicine; ATTEND Family Medicine
PROC: BT1FZZZ Fluoroscopy of Left Kidney, Ureter and Bladder (ICD-10-PCS; 2017-12-31)
PROC: 0T778DZ Dilation of Left Ureter with Intraluminal Device, Via Natural or Artificial Opening Endoscopic (ICD-10-PCS; 2017-12-31)
PROC: 0T9B70Z Drainage of Bladder with Drainage Device, Via Natural or Artificial Opening (ICD-10-PCS; 2017-12-31)
PROC: 0TC78ZZ Extirpation of Matter from Left Ureter, Via Natural or Artificial Opening Endoscopic (ICD-10-PCS; principal; 2017-12-31 11:15)
DX: N20.1 Calculus of ureter (principal); N17.9 Acute kidney failure, unspecified; Z68.44 Body mass index [BMI] 60.0-69.9, adult; N39.0 Urinary tract infection, site not specified; N20.0 Calculus of kidney; E03.9 Hypothyroidism, unspecified; I10 Essential (primary) hypertension; M19.90 Unspecified osteoarthritis, unspecified site; M10.9 Gout, unspecified; E66.9 Obesity, unspecified
CPT/HCPCS: 36415; 51610; 74018; 74176; 74450; 76377; 80048; 80053; 80076; 81003; 81015; 82360; 83690; 83735; 84100; 84550; 85025; 87086; 87088; 88300; 96374; 96375; 99285; J0330; J0696; J2250; J2405; J3010; J7030; Q9967

== ENCOUNTER 2018-06-30 10:39 | Observation (INO) | payer SELFPAY ==
[2018-06-30] MEDS ORDERED: DEXAMETHASONE 10 MG/ML VIAL ONE (11:11)
[2018-06-30] MEDS ORDERED: PANTOPRAZOLE 40 MG INJ ONE (11:12)
[2018-06-30] MEDS ORDERED: FAMOTIDINE 20 MG/2 ML VIAL IV ONE (11:12)
--- NOTE | 2018-06-30 11:46 | RAD REPORT ---
EXAM DESCRIPTION: RAD - Chest Single View - 06/30/2018 11:38 am CLINICAL HISTORY: right breast pain. allergic rxn. Chest pain. COMPARISON: Abdomen 1 View (KUB) dated 12/28/2017; Chest Single View dated 05/28/2017 FINDINGS: Portable technique limits examination quality. Vague opacities in both lung bases are seen which may be due to soft tissue artifact superimposition or infiltrates. The heart is significantly enlarged. No displaced fractures.
[2018-06-30 12:11] LABS: Absolute Lymphocytes (CBC) 1.6 K/uL (0.7-4.9); Absolute Monocytes 0.6 K/uL (0.1-1.3); Absolute Neutrophil 6.6 K/uL (1.8-8.0); Basophils % 0.8 % (0-1.3); Hematocrit 37.7 % (36.0-45.0); Lymphocytes % 17.8 % (15.3-44.8); MPV 10.2 fL (7.6-11.3); Monocytes % 6.8 % (3.3-12.3); RBC Red Blood Cell Count 4.66 M/uL (3.86-4.86)
[2018-06-30 12:12] LABS: ALT/SGPT 12 U/L (12-78); AST/SGOT 17 U/L (15-37); Albumin 3.1 g/dL (3.4-5.0); Alkaline Phosphatase 108 U/L (45-117); BUN Blood Urea Nitrogen 19 mg/dL (7-18); Bicarbonate 27 mmol/L (21-32); Bilirubin Total 0.4 mg/dL (0.2-1.0); Glucose Level 104 mg/dL (74-106); Potassium 4.5 mmol/L (3.5-5.1); Protein, Total 7.3 g/dL (6.4-8.2); Sodium Level 142 mmol/L (136-145)
--- NOTE | 2018-06-30 12:29 | ER ---
Nurse's Notes [facility] Name: Ethel Allen Age: 62 yrs Sex: Female : 1955 Arrival Date: 06/30/2018 Time: 10:39 Bed 20 Private MD: Diagnosis: Facial swelling;Allergic reaction Presentation: 06/30 10:40 Presenting complaint: EMS states: pt took ibuprofen liquid direct from the bottle for hj breast pain early am and around 7 am she felt swelling from her face and tongue and have difficulty speaking; denies SOB; 20g L hand with NS running bolus; Benadryl 25 mg IV and 25 mg IM given [employer] EYEGLASS; bilateral lungs clear, negative for stridor;. Transition of care: patient was not received from another setting of care. Onset: The symptoms/episode began/occurred acutely. Anaphylaxis evaluation, angioedema. Onset of symptoms was June 30, 2018 at 07:00. Risk Assessment: Do you want to hurt yourself or someone else? Patient reports no desire to harm self or others. Initial Sepsis Screen: Does the patient meet any 2 criteria? No. Patient's initial sepsis screen is negative. Does the patient have a suspected source of infection? No. Patient's initial sepsis screen is negative. Care prior to arrival: None. 10:40 Method Of Arrival: EMS: [facility] 10:40 Acuity: REYNA 2 hj Triage Assessment: 10:46 General: Appears in no apparent distress. uncomfortable, obese, Behavior is calm, hj cooperative, appropriate for age. Historical: - Allergies: 10:45 Ibuprofen; hj - Home Meds: 10:45 allopurinol 100 mg Oral tab 1 tab once daily [Active]; carvedilol 25 mg Oral tab 1 tab hj daily [Active]; losartan-hydrochlorothiazide 100-12.5 mg Oral tab 1 tab once daily [Active]; - PMHx: 10:45 ARTHRITIS MARY LEG; Enlarged Heart; Gout; Hypertension; hj - PSHx: 10:45 None; hj - Immunization history:: Adult Immunizations up to date. - Social history:: Smoking status: Patient uses tobacco products, Patient uses Patient/guardian denies using alcohol. - Ebola Screening: : Patient negative for fever greater than or equal to 101.5 degrees Fahrenheit, and additional compatible Ebola Virus Disease symptoms Patient denies exposure to infectious person Patient denies travel to an Ebola-affected area in the 21 days before illness onset. Screenin:46 Abuse screen: Denies threats or abuse. Denies injuries from another. Nutritional hj screening: No deficits noted. Tuberculosis screening: No symptoms or risk factors identified. Fall Risk None identified. Assessment: 10:46 Pain: Denies pain. Respiratory: Airway is compromised Respiratory effort is even, hj unlabored, Respiratory pattern is regular, Breath sounds are clear. 11:30 Reassessment: Patient and/or family updated on plan of care and expected duration. Pain hj level reassessed. Patient is alert, oriented x 3, equal unlabored respirations, skin warm/dry/pink. Patient states feeling better. Patient states symptoms have improved. 12:47 Reassessment: Patient and/or family updated on plan of care and expected duration. Pain hj level reassessed. Patient is alert, oriented x 3, equal unlabored respirations, skin warm/dry/pink. report called to Giorgi Membreno RN. Vital Signs: 10:43 Temp 98.4(O); pc1 10:47 BP 150 / 100; Pulse 60; Resp 18; Pulse Ox 99% on R/A; Weight 158.3 kg; Height 5 ft. 4 hj in. (162.56 cm); 11:30 BP 145 / 89; Pulse 59; Resp 18; Pulse Ox 97% on 2 lpm NC; hj 12:50 BP 141 / 80; Pulse 60; Resp 18; Pulse Ox 96% on 2 lpm NC; hj 10:47 Body Mass Index 59.91 (158.30 kg, 162.56 cm) ED Course: 10:39 Patient arrived in ED. hj 10:43 Triage completed. hj 10:44 Jeramy Asif MD is Attending Physician. ps1 10:47 Arm band placed on right wrist. hj 10:47 Patient has correct armband on for positive identification. Bed in low position. Call hj light in reach. Side rails up X2. Adult w/ patient. 10:57 Enoch Galeas RN is Primary Nurse. hj 11:37 X-ray completed. Portable x-ray completed in exam room. Patient tolerated procedure mh1 well. 11:38 CXR XRAY In Process Unspecified. EDMS 12:28 Semaj Brito MD is Hospitalizing Provider. ps1 Administered Medications: 10:58 Drug: Decadron - Dexamethasone 10 mg Route: IVP; Site: left hand; hj 12:49 Follow up: Response: No adverse reaction hj 10:58 Drug: ProTONIX 40 mg Route: IVP; Site: left hand; hj 12:49 Follow up: Response: No adverse reaction hj 10:58 Drug: Pepcid 20 mg Route: IVP; Site: left hand; hj 12:49 Follow up: Response: No adverse reaction hj Outcome: 12:28 Decision to Hospitalize by Provider. ps1 13:33 Patient left the ED. hj Signatures: Dispatcher [employer] EDMS Rosie Abbott 1 Enoch Galeas RN RN hj Jeramy Asif MD MD ps1 Babar Almanzar pc1
--- NOTE | 2018-06-30 12:29 | EDPHYS ---
Physician Documentation [facility] Name: Ethel Allen Age: 62 yrs Sex: Female : 1955 Arrival Date: 06/30/2018 Time: 10:39 Bed 20 Private MD: ED Physician eJramy Asif HPI: 06/30 10:55 This 62 yrs old Black Female presents to ER via EMS with complaints of Allergic ps1 Reaction. 10:55 The patient presents with difficulty swallowing, tongue and face swelling.. Onset: The ps1 symptoms/episode began/occurred this morning. Possible causes: NSAIDs, ibuprofen, Losartan. Severity of symptoms: At their worst the symptoms were moderate in the emergency department the symptoms are unchanged. Historical: - Allergies: 10:45 Ibuprofen; hj - Home Meds: 10:45 allopurinol 100 mg Oral tab 1 tab once daily [Active]; carvedilol 25 mg Oral tab 1 tab hj daily [Active]; losartan-hydrochlorothiazide 100-12.5 mg Oral tab 1 tab once daily [Active]; - PMHx: 10:45 ARTHRITIS MARY LEG; Enlarged Heart; Gout; Hypertension; hj - PSHx: 10:45 None; hj - Immunization history:: Adult Immunizations up to date. - Social history:: Smoking status: Patient uses tobacco products, Patient uses Patient/guardian denies using alcohol. - Ebola Screening: : Patient negative for fever greater than or equal to 101.5 degrees Fahrenheit, and additional compatible Ebola Virus Disease symptoms Patient denies exposure to infectious person Patient denies travel to an Ebola-affected area in the 21 days before illness onset. ROS: 10:55 Constitutional: Negative for fever, chills, and weight loss, Eyes: Negative for injury, ps1 pain, redness, and discharge, Cardiovascular: Negative for chest pain, palpitations, and edema, Respiratory: Negative for shortness of breath, cough, wheezing, and pleuritic chest pain, Abdomen/GI: Negative for abdominal pain, nausea, vomiting, diarrhea, and constipation, MS/Extremity: Negative for injury and deformity, Neuro: Negative for headache, weakness, numbness, tingling, and seizure. 10:55 ENT: Positive for facial swelling and tongue swelling.. 10:55 Skin: Positive for rash, right breast pain. Exam: 10:55 Constitutional: This is a well developed, well nourished patient who is awake, alert, ps1 and in no acute distress. Head/Face: Normocephalic, atraumatic. Eyes: Pupils equal round and reactive to light, extra-ocular motions intact. Lids and lashes normal. Conjunctiva and sclera are non-icteric and not injected. Cardiovascular: Regular rate and rhythm. No gallops, murmurs, or rubs. Normal PMI, no JVD. No pulse deficits. Respiratory: Lungs have equal breath sounds bilaterally, clear to auscultation and percussion. No rales, rhonchi or wheezes noted. No increased work of breathing, no retractions or nasal flaring. Abdomen/GI: Soft, non-tender, with normal bowel sounds. No distension or tympany. No guarding or rebound. No evidence of tenderness throughout. Skin: Warm, dry with normal turgor. Normal color with no rashes, no lesions, and no evidence of cellulitis. 10:55 ENT: Mouth: Tongue: is swollen, Voice: is muffled, submandibular swelling. . 10:55 Skin: Appearance: normal except for affected area, specifically, no masses to the right breast to palpation. . Vital Signs: 10:43 Temp 98.4(O); pc1 10:47 BP 150 / 100; Pulse 60; Resp 18; Pulse Ox 99% on R/A; Weight 158.3 kg; Height 5 ft. 4 hj in. (162.56 cm); 11:30 BP 145 / 89; Pulse 59; Resp 18; Pulse Ox 97% on 2 lpm NC; hj 12:50 BP 141 / 80; Pulse 60; Resp 18; Pulse Ox 96% on 2 lpm NC; hj 10:47 Body Mass Index 59.91 (158.30 kg, 162.56 cm) MDM: 11:25 Patient medically screened. ps1 06/30 10:55 Order name: CBC with Diff; Complete Time: 12:29 ps1 06/30 10:55 Order name: CMP; Complete Time: 12:29 ps1 06/30 10:55 Order name: CXR XRAY; Complete Time: 11:49 ps1 06/30 11:32 Order name: Labs - recollect needed; Complete Time: 11:45 bd Administered Medications: 10:58 Drug: Decadron - Dexamethasone 10 mg Route: IVP; Site: left hand; hj 12:49 Follow up: Response: No adverse reaction hj 10:58 Drug: ProTONIX 40 mg Route: IVP; Site: left hand; hj 12:49 Follow up: Response: No adverse reaction hj 10:58 Drug: Pepcid 20 mg Route: IVP; Site: left hand; hj 12:49 Follow up: Response: No adverse reaction hj Disposition: 06/30/18 12:28 Hospitalization ordered by Semaj Brito for Observation. Preliminary diagnosis are Facial swelling, Allergic reaction. - Bed requested for Telemetry/MedSurg (observation). - Status is Observation. hj - Condition is Fair. - Problem is new. - Symptoms are unchanged. UTI on Admission? No Signatures: Dispatcher [employer] EDRehana Packer Henry, RN RN Jeramy Huston MD MD ps1 Corrections: (The following items were deleted from the chart) 12:29 12:28 Hospitalization Ordered by Semaj Brito MD for Observation. Preliminary diagnosis bd is Facial swelling; Allergic reaction. Bed requested for Telemetry/MedSurg (observation). Status is Observation. Condition is Fair. Problem is new. Symptoms are unchanged. UTI on Admission? No. ps1 13:33 12:29 06/30/2018 12:28 Hospitalization Ordered by Semaj Brito MD for Observation. hj Preliminary diagnosis is Facial swelling; Allergic reaction. Bed requested for Telemetry/MedSurg (observation). Status is Observation. Condition is Fair. Problem is new. Symptoms are unchanged. UTI on Admission? No. bd
[2018-06-30] MEDS ORDERED: ONDANSETRON 4 MG/2 ML VIAL IV PRN (13:26)
[2018-06-30] MEDS ORDERED: DIPHENHYDRAMINE 25 MG TAB/CAP PO PRN (13:26)
[2018-06-30] MEDS: ALBUTEROL 2.5 MG/3 ML NEB SOL NEB SCH ×2 (14:15→19:34)
[2018-06-30] MEDS: NA CHLORIDE 0.9% 1,000 ML IV SCH ×2 (14:21→20:46)
[2018-06-30 14:40] VITALS: BMI 59.9
[2018-06-30] MEDS: HYDRALAZINE HCL 20 MG/ML VIAL IV PRN (15:11)
[2018-06-30 15:23] LABS: Urine Appearance CLEAR; Urine Bilirubin NEGATIVE (NEG); Urine Blood NEGATIVE (NEG); Urine Color YELLOW; Urine Glucose NEGATIVE (NEG); Urine Protein NEGATIVE (NEG); Urine Specific Gravity 1.025 (1.005-1.030); Urine Urobilinogen 0.2 mg/dL (0.2-1.0)
[2018-06-30] MEDS: INSULIN -REGULAR HUMAN 50 UNIT/0.5 ML ML SQ SCH ×2 (16:10→21:00)
[2018-06-30] MEDS: METHYLPREDNISOLONE 40 MG INJ IV SCH (16:27)
[2018-06-30 16:51] LABS: Urine Microscopic Reflex NO UMIC
[2018-06-30] MEDS: CARVEDILOL 25 MG TAB PO SCH (20:46)
[2018-06-30] MEDS: RANITIDINE 150 MG TABLET PO SCH (20:47)
[2018-06-30] MEDS: ACETAMINOPHEN 500 MG TAB PO PRN (22:36)
--- NOTE | 2018-06-30 23:06 | HP ---
Date of Admission: 06/30/2018 Chief Complaint: Tongue swelling, throat swelling, difficulty breathing. History Of Present Illness: The patient is a 62-year-old female with past medical history of high bl ood pressure, hypothyroidism, arthritis, gout, morbid obesity, who comes in with swelling of her tong ue and throat with difficulty breathing and swallowing. The patient has been on losartan for her blo od pressure for the past 2 years, states that she was recently started on metformin a few weeks ago a nd noticed these symptoms this morning after taking her a.m. medications. The patient took some salt water to help her throat feel better and called EMS. The patient's symptoms were constant, moderate , and progressively worsening. The patient was brought into the ER for further evaluation. Upon arr ival, her vital signs were stable and she was afebrile. Her O2 saturations were 99% on room air. Th e patient was given Decadron, famotidine, and pantoprazole, and then referred for admission. The pat ient's workup showed normal WBC count. UA was pending. When seen in the ER, she was awake, alert, o riented x3, complaining of some swelling. Past Medical History: Hypertension, hypothyroidism, generalized osteoarthritis, gout, and diabetes. Surgical History: Cholecystectomy. Allergies: NO KNOWN DRUG ALLERGIES. Medications: List reviewed. Social History: The patient denies any tobacco use, alcohol use, or illicit drug use. Family History: Sister has thyroid cancer. Mother had colon cancer, hypertension, diabetes, autoimm une disease. Diabetes runs in the family. Review of Systems: An 11-point system reviewed, negative except as per HPI. Physical Examination: Vital Signs: Temperature 98.4, blood pressure 150/100, pulse 60, respirations 18, O2 99% on room air . General: Awake, alert, oriented x3. Morbidly obese female in some mild distress. BMI 59. HEENT: Normocephalic, atraumatic. PERRLA. EOMI. Moist mucous membranes. Oropharynx is clear. Th e patient does have some angioedema with tongue swelling and poor dentition. Conjunctivae anicteric. Neck: Supple. Minimal swelling of the submental area. The trachea is midline. CV: S1, S2. Regular rate and rhythm. Peripheral pulses present. Respiratory: Diminished breath sounds. Poor respiratory effort. No wheezing or stridor. No use of accessory muscles. Gastrointestinal: Abdomen is soft, nontender, nondistended. Positive bowel sounds. No guarding or rigidity. Bowel sounds positive. Extremities: No clubbing, cyanosis. The patient has pedal edema. Neuro: Cranial nerves 2-12 intact grossly. No focal neurological deficit. Speech is normal. Skin: No rashes. Normal skin turgor. Laboratory Data: Sodium 142, potassium 4.5, chloride 107, CO2 27, BUN 19, creatinine 0.73, glucose 1 04, calcium 8.6. WBC 9, H and H 11.9 and 37.7, platelets 181, neutrophils 72%. Chest x-ray personal ly reviewed shows vague opacities in both lung bases are seen, which may be due to soft tissue artifa ct, superimposition, or infiltrate. Heart is significantly enlarged. No displaced fractures. Assessment And Plan: A 62-year-old female with: 1.Angioedema, improved with IV steroids and H2 blockers. We will continue with continuous pulse ox. We will hold offending agents likely losartan. Unclear as the patient states that she was recently started on metformin and also liquid ibuprofen today. 2.Morbid obesity, BMI 59. 3.Essential hypertension, uncontrolled. We will resume home medications as appropriate. We will pl garland her on hydralazine IV p.r.n. 4.Diabetes mellitus type 2, [id number], with no complications. We will check hemoglobin A1c. Hold metformin for now. Start on sliding scale insulin and monitor Accu-Cheks. 5.Gout. Continue allopurinol. 6.Hypothyroidism. Check TSH. 7.Cardiomegaly. The patient will benefit from echocardiogram as an outpatient, likely due to longst anding hypertension. 8.DVT addressed. We will place her on Lovenox. Admit the patient to Med/Surg, place as observation. Use albuterol p.r.n., likely discharge in 24-48 hours depending on clinical response. JOJO Voice ID: [id number]
[2018-07-01] MEDS: METHYLPREDNISOLONE 40 MG INJ IV SCH ×2 (01:12→09:40)
[2018-07-01] MEDS: HYDRALAZINE HCL 20 MG/ML VIAL IV PRN (01:12)
[2018-07-01] MEDS: ALBUTEROL 2.5 MG/3 ML NEB SOL NEB SCH ×3 (02:00→13:20)
[2018-07-01 04:31] LABS: Absolute Lymphocytes (CBC) 0.9 K/uL (0.7-4.9); Absolute Monocytes 0.2 K/uL (0.1-1.3); Absolute Neutrophil 10.6 K/uL (1.8-8.0); Basophils % 0.1 % (0-1.3); Hematocrit 39.1 % (36.0-45.0); Lymphocytes % 7.7 % (15.3-44.8); Monocytes % 1.7 % (3.3-12.3); RBC Red Blood Cell Count 4.73 M/uL (3.86-4.86)
[2018-07-01 04:45] LABS: ALT/SGPT 14 U/L (12-78); AST/SGOT 8 U/L (15-37); Albumin 3.3 g/dL (3.4-5.0); Alkaline Phosphatase 112 U/L (45-117); BUN Blood Urea Nitrogen 16 mg/dL (7-18); Bicarbonate 27 mmol/L (21-32); Bilirubin Total 0.3 mg/dL (0.2-1.0); Glucose Level 186 mg/dL (74-106); Protein, Total 7.6 g/dL (6.4-8.2); Sodium Level 142 mmol/L (136-145)
[2018-07-01 05:18] LABS: Blood Morphology Comment NOT SEEN (NOT SEEN); Platelet Estimate ADEQ
[2018-07-01] MEDS: INSULIN -REGULAR HUMAN 50 UNIT/0.5 ML ML SQ SCH ×2 (07:30→11:30)
[2018-07-01] MEDS ORDERED: ALLOPURINOL 100 MG TAB PO SCH (09:00)
[2018-07-01] MEDS ORDERED: AMLODIPINE 5 MG TAB PO SCH (09:00)
[2018-07-01] MEDS: NA CHLORIDE 0.9% 1,000 ML IV SCH (09:26)
[2018-07-01] MEDS: RANITIDINE 150 MG TABLET PO SCH (09:39)
[2018-07-01] MEDS: CARVEDILOL 25 MG TAB PO SCH (09:39)
--- NOTE | 2018-07-01 11:06 | ECHO ---
HEIGHT: 5 ft 4 in WEIGHT: 349 lb 0 oz DATE OF STUDY: 07/01/[address]: Semaj Brito MD 2-DIMENSIONAL: YES M.MODE: YES DOPPLER: YES COLOR FLOW: YES TDS: YES PORTABLE: NO DEFINITY: NO BUBBLE STUDY: NO DIAGNOSIS: CARDIOMEGALY CARDIAC HISTORY: CATHERIZATION: NO SURGERY: NO PROSTHETIC VALVE: NO PACEMAKER: NO MEASUREMENTS (cm) DIASTOLIC (NORMALS) SYSTOLIC (NORMALS) IVSd 1.5 (0.6-1.2) LA Diam 4.8 (1.9-4.0) LVEF 60-65% LVIDd 4.6 (3.5-5.7) LVIDs 3.4 (2.0-3.5) %FS 26% LVPWd 1.5 (0.6-1.2) Ao Diam 3.2 (2.0-3.7) 2 DIMENSIONAL ASSESSMENT: RIGHT ATRIUM: NORMAL LEFT ATRIUM: DILATED RIGHT VENTRICLE: NORMAL LEFT VENTRICLE: LEFT VENTRICULAR HYPERTROPHY TRICUSPID VALVE: NORMAL MITRAL VALVE: NORMAL PULMONIC VALVE: NORMAL AORTIC VALVE: NORMAL PERICARDIAL EFFUSION: NONE AORTIC ROOT: NORMAL LEFT VENTRICULAR WALL MOTION: NORMLA DOPPLER/COLOR FLOW: MILD AORTIC AND MITRAL REGURGITATION. IMPAIRED LEFT VENTRICULAR RELAXATION. COMMENTS: NORMAL LEFT VENTRICULAR EJECTION FRACTION. LEFT VENTRICULAR HYPERTROPHY. DILATED LEFT ATRIUM. MILD AORTIC AND MITRAL REGURGITATION. TECHNOLOGIST: Nichole WARREN
[2018-07-01] MEDS: ACETAMINOPHEN 500 MG TAB PO PRN (11:14)
[2018-07-01 12:11] VITALS: BP 157/86; TEMP 98.2
[2018-07-01 12:13] VITALS: O2SAT 96
[2018-07-01] MEDS ORDERED: D50W 25 GM/50 ML SYRINGE IV PRN (14:43)
[2018-07-01] MEDS ORDERED: GLUCAGON 1 MG/VIAL IM PRN (14:43)
--- NOTE | 2018-07-01 15:42 | P.DS ---
Admission Date: 06/30/18 Discharge Date: 07/01/18 Disposition: ROUTINE DISCHARGE Discharge Condition: GOOD Reason for Admission: Allergic Reaction to the Liquid Ibuprofen - Problems (1) Anaphylactic reaction Current Visit: Yes Status: Resolved Qualifiers: Encounter type: initial encounter Qualified Code(s): T78.2XXA - Anaphylactic shock, unspecified, initial encounter (2) Hypertension Onset Date: 12/30/17 Current Visit: No Status: Chronic Qualifiers: Hypertension type: essential hypertension (3) Obesity Current Visit: No Status: Chronic Qualifiers: Obesity type: unspecified obesity type Obesity classification: unspecified obesity classification Serious obesity comorbidity presence: without serious comorbidity Qualified Code(s): E66.9 - Obesity, unspecified Brief History of Present Illness: The patient is a 62-year-old female with past medical history of high blood pressure, hypothyroidism, arthritis, gout, morbid obesity, who comes in with swelling of her tongue and throat with difficulty breathing and swallowing. The patient has been on losartan for her blood pressure for the past 2 years, states that she was recently started on metformin a few weeks ago and noticed these symptoms this morning after taking her a.m. medications. The patient took some salt water to help her throat feel better and called EMS. The patient 's symptoms were constant, moderate, and progressively worsening. The patient was brought into the ER for further evaluation. Upon arrival, her vital signs were stable and she was afebrile. Her O2 saturations were 99% on room air. The patient was given Decadron, famotidine, and pantoprazole, and then referred for admission. The patient's workup showed normal WBC count. UA was pending. When seen in the ER, she was awake, alert, oriented x3, complaining of some swelling. Hospital Course: Overall during the hospital stay patient remained stable Patient was initially admitted to the hospital after having allergic reaction with lip swelling and difficulty breathing after patient took ibuprofen liquid along with Tylenol simultaneously. Patient was started on Benadryl and steroids here in the hospital had marked improvement in her symptoms. Was monitored here in the hospital for 24 hr. When there were no adverse events noted patient was discharged home under stable condition. Patient was asked to restart taking her losartan and we discussed taking her metformin with her PCP. Patient was also given prescription for Benadryl and steroids to be taken for the next 4-5 days. Patient was asked to not take any more ibuprofen or Tylenol due to allergic reactions. Vital Signs/Physical Exam: Temp Pulse Resp BP Pulse Ox 98.2 F 74 16 157/86 H 96 07/01/18 12:00 07/01/18 12:00 07/01/18 12:00 07/01/18 12:00 07/01/18 12:00 General: Alert, In no apparent distress HEENT: Atraumatic, PERRLA, EOMI Neck: Supple, JVD not distended Respiratory: Clear to auscultation bilaterally, Normal air movement Cardiovascular: Regular rate/rhythm, Normal S1 S2 Gastrointestinal: Normal bowel sounds, No tenderness Musculoskeletal: No tenderness Integumentary: No rashes Neurological: Normal speech, Normal tone, Normal affect Lymphatics: No axilla or inguinal lymphadenopathy Laboratory Data at Discharge: WBC 11.7 K/uL (4.3-10.9) H D 07/01/18 03:33 Hgb 11.9 g/dL (12.0-15.0) L 07/01/18 03:33 Hct 39.1 % (36.0-45.0) 07/01/18 03:33 Plt Count 154 K/uL (152-406) 07/01/18 03:33 Sodium 142 mmol/L (136-145) 07/01/18 03:33 Potassium 4.0 mmol/L (3.5-5.1) 07/01/18 03:33 BUN 16 mg/dL (7-18) 07/01/18 03:33 Creatinine 0.75 mg/dL (0.55-1.3) 07/01/18 03:33 Glucose 186 mg/dL (74-106) H 07/01/18 03:33 Total Bilirubin 0.3 mg/dL (0.2-1.0) 07/01/18 03:33 AST 8 U/L (15-37) L 07/01/18 03:33 ALT 14 U/L (12-78) 07/01/18 03:33 Alkaline Phosphatase 112 U/L (45-117) 07/01/18 03:33 Home Medications: Allopurinol 100 mg PO DAILY 12/28/17 Amlodipine Besylate 5 mg PO DAILY 12/28/17 Carvedilol [Coreg] 25 mg PO BID 12/28/17 Losartan Potassium [Cozaar] 100 mg PO DAILY 12/28/17 Metformin ER [Glucophage ER*] 1 tab PO BID 06/30/18 Diphenhydramine [Benadryl*] 25 mg PO Q6H PRN #25 tab 07/01/18 predniSONE [Prednisone] 20 mg PO DIRECTED #30 tablet 07/01/18 New Medications: Diphenhydramine [Benadryl*] 25 mg PO Q6H PRN #25 tab PRN Reason: Itching predniSONE [Prednisone] 20 mg PO DIRECTED #30 tablet Patient Discharge Instructions: Please f.u with PCP in 1 to 2 days post discharge. New medication. Benadryl. Prednisone Diet: Regular Activity: Ad anyi
== END 2018-07-01 16:00 | disposition home or self-care (01) ==
LOC: ER 10:39 → ERHOLD 11:52 → 4TH 12:44
PROVIDERS: ADMIT Family Medicine; ATTEND Family Medicine
DX: T39.315A Adverse effect of propionic acid derivatives, initial encounter (principal); T88.6XXA Anaphylactic reaction due to adverse effect of correct drug or medicament properly administered, initial encounter; Y92.009 Unspecified place in unspecified non-institutional (private) residence as the place of occurrence of the external cause; I10 Essential (primary) hypertension; E03.9 Hypothyroidism, unspecified; E66.01 Morbid (severe) obesity due to excess calories; Z68.43 Body mass index [BMI] 50.0-59.9, adult; M10.9 Gout, unspecified; E11.9 Type 2 diabetes mellitus without complications; I51.7 Cardiomegaly
CPT/HCPCS: 36415; 71045; 80053; 81003; 82962; 83036; 85025; 93306; 94640; 94760; 96374; 96375; 97162; 99283; C9113; G0378; J0360; J1100; J2920; J7030

== ENCOUNTER 2018-11-06 20:12 | Observation (INO) | payer SELFPAY ==
[2018-11-06] MEDS ORDERED: dexAMETHasone 10 MG/ML VIAL ONE (21:16)
[2018-11-06] MEDS ORDERED: FAMOTIDINE 20 MG/2 ML VIAL IV ONE (21:17)
[2018-11-06] MEDS ORDERED: DIPHENHYDRAMINE 50 MG/ML VIAL ONE (21:17)
[2018-11-06 22:04] LABS: ALT/SGPT 14 U/L (12-78); AST/SGOT 7 U/L (15-37); Albumin 3.6 g/dL (3.4-5.0); Alkaline Phosphatase 117 U/L (45-117); BUN Blood Urea Nitrogen 25 mg/dL (7-18); Bicarbonate 30 mmol/L (21-32); Bilirubin Direct < 0.1 mg/dL (0-0.2); Bilirubin Total 0.2 mg/dL (0.2-1.0); Glucose Level 150 mg/dL (74-106); Potassium 4.5 mmol/L (3.5-5.1); Sodium Level 140 mmol/L (136-145)
--- NOTE | 2018-11-07 00:59 | EDPHYS ---
Physician Documentation [facility] Name: Ethel Allen Age: 62 yrs Sex: Female : 1955 Arrival Date: 11/06/2018 Time: 20:13 Bed 20 Private MD: ED Physician Rock Ochoa HPI: 11/07 01:36 This 62 yrs old Black Female presents to ER via EMS with complaints of tongue swelling. wa 01:36 The patient presents with tongue swelling. Onset: The symptoms/episode began/occurred wa just prior to arrival. Associated signs and symptoms: Pertinent positives: swelling, of the tongue, Pertinent negatives: abdominal pain, chest pain, rash, shortness of breath. Possible causes: states began 30 minutes after taking tramadol. At home the patient or guardian has treated the symptoms with nothing. Severity of symptoms: At their worst the symptoms were moderate in the emergency department the symptoms are unchanged. The patient has experienced a previous episode, same to a BP med. The patient has not recently seen a physician. pt on losartan . Historical: - Allergies: 11/06 20:22 Ibuprofen; tr5 - Home Meds: 20:22 allopurinol 100 mg Oral tab 1 tab once daily [Active]; carvedilol 25 mg Oral tab 1 tab tr5 daily [Active]; losartan-hydrochlorothiazide 100-12.5 mg Oral tab 1 tab once daily [Active]; Tramadol Oral [Active]; amlodipine [Active]; - PMHx: 20:22 ARTHRITIS MARY LEG; Enlarged Heart; Gout; Hypertension; tr5 - Immunization history:: Adult Immunizations up to date. - Social history:: Smoking status: Patient/guardian denies using tobacco. - Ebola Screening: : No symptoms or risks identified at this time. - Family history:: not pertinent. - Hospitalizations: : No recent hospitalization is reported. ROS: 11/07 01:38 Constitutional: Negative for fever, chills, and weight loss, Eyes: Negative for injury, wa pain, redness, and discharge, Neck: Negative for injury, pain, and swelling, Cardiovascular: Negative for chest pain, palpitations, and edema, Respiratory: Negative for shortness of breath, cough, wheezing, and pleuritic chest pain, Abdomen/GI: Negative for abdominal pain, nausea, vomiting, diarrhea, and constipation, Back: Negative for injury and pain, : Negative for injury, bleeding, discharge, and swelling, MS/Extremity: Negative for injury and deformity, Skin: Negative for injury, rash, and discoloration, Neuro: Negative for headache, weakness, numbness, tingling, and seizure, Psych: Negative for depression, anxiety, suicide ideation, homicidal ideation, and hallucinations. ENT: Positive for tongue swelling, Negative for ear pain, foreign body sensation, nasal discharge, rhinorrhea, sinus congestion. Exam: 01:39 Constitutional: This is a well developed, well nourished patient who is awake, alert, wa and in no acute distress. Head/Face: Normocephalic, atraumatic. Eyes: Pupils equal round and reactive to light, extra-ocular motions intact. Lids and lashes normal. Conjunctiva and sclera are non-icteric and not injected. Cornea within normal limits. Periorbital areas with no swelling, redness, or edema. Neck: Trachea midline, no thyromegaly or masses palpated, and no cervical lymphadenopathy. Supple, full range of motion without nuchal rigidity, or vertebral point tenderness. No Meningismus. Chest/axilla: Normal chest wall appearance and motion. Nontender with no deformity. No lesions are appreciated. Cardiovascular: Regular rate and rhythm with a normal S1 and S2. No gallops, murmurs, or rubs. Normal PMI, no JVD. No pulse deficits. Respiratory: Lungs have equal breath sounds bilaterally, clear to auscultation and percussion. No rales, rhonchi or wheezes noted. No increased work of breathing, no retractions or nasal flaring. Abdomen/GI: Soft, non-tender, with normal bowel sounds. No distension or tympany. No guarding or rebound. No evidence of tenderness throughout. Back: No spinal tenderness. No costovertebral tenderness. Full range of motion. Skin: Warm, dry with normal turgor. Normal color with no rashes, no lesions, and no evidence of cellulitis. MS/ Extremity: Pulses equal, no cyanosis. Neurovascular intact. Full, normal range of motion. Neuro: Awake and alert, GCS 15, oriented to person, place, time, and situation. Cranial nerves II-XII grossly intact. Motor strength 5/5 in all extremities. Sensory grossly intact. Cerebellar exam normal. Normal gait. Psych: Awake, alert, with orientation to person, place and time. Behavior, mood, and affect are within normal limits. 01:39 ENT: Ear canal(s): are normal, Mouth: Tongue: is swollen, Posterior pharynx: is normal. Vital Signs: 11/06 20:22 BP 170 / 70; Pulse 58; Resp 16; Temp 98.5; Pulse Ox 95% on R/A; Weight 149.69 kg; tr5 Height 5 ft. 4 in. (162.56 cm); 21:47 BP 140 / 79; Pulse 58; Resp 16; Pulse Ox 95% on R/A; tr5 23:08 BP 161 / 78; Pulse 59; Resp 16; Pulse Ox 92% on R/A; tr5 11/07 00:48 BP 120 / 63; Pulse 76; Resp 15; Pulse Ox 97% on R/A; tr5 11/06 20:22 Body Mass Index 56.64 (149.69 kg, 162.56 cm) tr5 MDM: 11/06 20:54 Patient medically screened. ut 11/07 01:39 Differential diagnosis: anaphylaxis, angioedema, non IgE mediated drug reaction wa isolated tongue swelling. suspect losartan related angioedema. will stop the drug. will obs for concerns of worsening. decadron, benadryl IV. Data reviewed: vital signs, nurses notes, lab test result(s). Test interpretation: by ED physician or midlevel provider:. 01:42 Test interpretation: by ED physician or midlevel provider: labs noted for ut hyperglycemia. . Response to treatment: the patient's symptoms have mildly improved after treatment. 11/06 21:03 Order name: Basic Metabolic Panel; Complete Time: 00:10 ut 11/06 21:03 Order name: CBC with Diff ut 11/06 21:03 Order name: Hepatic Function; Complete Time: 00:10 ut 11/06 21:03 Order name: PT-INR ut 11/07 01:16 Order name: CBC with Automated Diff EDMS 11/07 01:16 Order name: CBC with Automated Diff EDMS 11/07 01:16 Order name: Comprehensive Metabolic Panel EDMS 11/07 01:16 Order name: Comprehensive Metabolic Panel EDMS 11/07 01:16 Order name: Troponin I EDMS 11/07 01:16 Order name: Troponin I EDMS 11/07 01:17 Order name: Troponin I EDMS 11/06 21:03 Order name: IV Saline Lock; Complete Time: 21:13 ut 11/06 21:03 Order name: Labs collected and sent; Complete Time: 21:47 ut 11/06 21:04 Order name: Cardiac monitoring; Complete Time: 21:14 ut 11/07 01:16 Order name: CONS Pharmacy Consult [facility] 11/07 01:16 Order name: Regular EDFL Administered Medications: 11/06 21:46 Drug: Benadryl 12.5 mg Route: IVP; Site: right forearm; tr5 22:20 Follow up: Response: No adverse reaction tr5 21:46 Drug: Pepcid 20 mg Route: IVP; Site: right forearm; tr5 22:20 Follow up: Response: No adverse reaction tr5 21:46 Drug: Decadron - Dexamethasone 10 mg Route: IVP; Site: right forearm; tr5 22:20 Follow up: Response: No adverse reaction tr5 Disposition: 11/07/18 00:57 Hospitalization ordered by Daniela Herrera for Observation. Preliminary diagnosis is Angioedema. - Bed requested for Telemetry/MedSurg (observation). - Status is Observation. tr5 - Condition is Stable. - Problem is new. - Symptoms have improved. UTI on Admission? No Signatures: Dispatcher [employer] [facility] Rosie Lantigua RN RN Rock Ochoa MD MD wa Rodriguez, Tommie, RN RN tr5 Corrections: (The following items were deleted from the chart) 11/07 01:23 00:57 Hospitalization Ordered by Daniela Herrera MD for Observation. Preliminary mw diagnosis is Angioedema. Bed requested for Telemetry/MedSurg (observation). Status is Observation. Condition is Stable. Problem is new. Symptoms have improved. UTI on Admission? No. wa 02:04 01:23 11/07/2018 00:57 Hospitalization Ordered by Daniela Herrera MD for Observation. tr5 Preliminary diagnosis is Angioedema. Bed requested for Telemetry/MedSurg (observation). Status is Observation. Condition is Stable. Problem is new. Symptoms have improved. UTI on Admission? No.
--- NOTE | 2018-11-07 00:59 | ER ---
Nurse's Notes [facility] Name: Ethel Allen Age: 62 yrs Sex: Female : 1955 Arrival Date: 11/06/2018 Time: 20:13 Bed 20 Private MD: Diagnosis: Angioedema Presentation: 11/06 20:16 Presenting complaint: EMS states: Pt took tramadol for the first time today and about tr5 30 minutes after she realized she has some mouth/facial swelling as well as difficulty swallowing and slurred speech. Transition of care: patient was not received from another setting of care. Onset of symptoms was November 06, 2018. Risk Assessment: Do you want to hurt yourself or someone else? Patient reports no desire to harm self or others. Initial Sepsis Screen: Does the patient meet any 2 criteria? No. Patient's initial sepsis screen is negative. Does the patient have a suspected source of infection? No. Patient's initial sepsis screen is negative. Care prior to arrival: Medication(s) given: Benadryl 25 IM and 25 IV. IV initiated. 22 GA, in the right forearm. 20:16 Method Of Arrival: EMS: [facility] tr5 20:16 Acuity: REYNA 3 tr5 Triage Assessment: 20:22 General: Appears comfortable, Behavior is calm, cooperative, appropriate for age. Pain: tr5 Denies pain. Historical: - Allergies: 20:22 Ibuprofen; tr5 - Home Meds: 20:22 allopurinol 100 mg Oral tab 1 tab once daily [Active]; carvedilol 25 mg Oral tab 1 tab tr5 daily [Active]; losartan-hydrochlorothiazide 100-12.5 mg Oral tab 1 tab once daily [Active]; Tramadol Oral [Active]; amlodipine [Active]; - PMHx: 20:22 ARTHRITIS MARY LEG; Enlarged Heart; Gout; Hypertension; tr5 - Immunization history:: Adult Immunizations up to date. - Social history:: Smoking status: Patient/guardian denies using tobacco. - Ebola Screening: : No symptoms or risks identified at this time. - Family history:: not pertinent. - Hospitalizations: : No recent hospitalization is reported. Screenin:31 Abuse screen: Denies threats or abuse. Nutritional screening: No deficits noted. tr5 Tuberculosis screening: No symptoms or risk factors identified. Fall Risk None identified. Total Moore Fall Scale indicates No Risk (0-24 pts). Assessment: 20:27 General: Appears uncomfortable, Behavior is calm, cooperative. Pain: Denies pain. tr5 Neuro: Level of Consciousness is awake, alert, obeys commands, Oriented to person, place, time, Cement Block Maker are equal bilaterally Moves all extremities. Reports difficulty swallowing since About 30 minutes after taking Tramadol. Cardiovascular: Heart tones present Bruits present Capillary refill < 3 seconds Pulses are all present. Edema is 3+ to Facial/tongue swelling. Respiratory: Reports shortness of breath at rest Airway is patent Trachea midline Respiratory effort is even, unlabored, Respiratory pattern is symmetrical, Breath sounds are clear bilaterally. GI: No signs and/or symptoms were reported involving the gastrointestinal system. : No signs and/or symptoms were reported regarding the genitourinary system. EENT: No signs and/or symptoms were reported regarding the EENT system. Derm: Skin is intact, is healthy with good turgor, Skin is dry, Skin is pink, warm \T\ dry. Musculoskeletal: Capillary refill < 3 seconds. 20:57 Reassessment: Patient and/or family updated on plan of care and expected duration. Pain tr5 level reassessed. Patient is alert, oriented x 3, equal unlabored respirations, skin warm/dry/pink. 21:47 Reassessment: Patient and/or family updated on plan of care and expected duration. Pain tr5 level reassessed. Patient is alert, oriented x 3, equal unlabored respirations, skin warm/dry/pink. Patient states feeling better. 23:05 Reassessment: Patient and/or family updated on plan of care and expected duration. Pain tr5 level reassessed. Patient is alert, oriented x 3, equal unlabored respirations, skin warm/dry/pink. 11/07 00:48 Reassessment: Patient appears in no apparent distress at this time. Pt in bed sleeping. tr5 Vital Signs: 11/06 20:22 BP 170 / 70; Pulse 58; Resp 16; Temp 98.5; Pulse Ox 95% on R/A; Weight 149.69 kg; tr5 Height 5 ft. 4 in. (162.56 cm); 21:47 BP 140 / 79; Pulse 58; Resp 16; Pulse Ox 95% on R/A; tr5 23:08 BP 161 / 78; Pulse 59; Resp 16; Pulse Ox 92% on R/A; tr5 11/07 00:48 BP 120 / 63; Pulse 76; Resp 15; Pulse Ox 97% on R/A; tr5 11/06 20:22 Body Mass Index 56.64 (149.69 kg, 162.56 cm) tr5 ED Course: 11/06 20:13 Patient arrived in ED. ds1 20:16 Jesse Mart, RN is Primary Nurse. tr5 20:20 Triage completed. tr5 20:22 Arm band placed on. tr5 20:31 Awaiting ED provider evaluation. tr5 20:31 Patient has correct armband on for positive identification. Bed in low position. Call tr5 light in reach. Door closed. Noise minimized. Warm blanket given. 20:31 Inserted saline lock: 22 gauge in right forearm, using aseptic technique. tr5 20:54 Rock Ochoa MD is Attending Physician. wa 23:05 Awaiting lab results. tr5 11/07 00:57 Daniela Herrera MD is Hospitalizing Provider. wa 01:16 Assisted to bathroom. tr5 01:40 No provider procedures requiring assistance completed. Patient admitted, IV remains in tr5 place. Administered Medications: 11/06 21:46 Drug: Benadryl 12.5 mg Route: IVP; Site: right forearm; tr5 22:20 Follow up: Response: No adverse reaction tr5 21:46 Drug: Pepcid 20 mg Route: IVP; Site: right forearm; tr5 22:20 Follow up: Response: No adverse reaction tr5 21:46 Drug: Decadron - Dexamethasone 10 mg Route: IVP; Site: right forearm; tr5 22:20 Follow up: Response: No adverse reaction tr5 Outcome: 11/07 00:57 Decision to Hospitalize by Provider. wa 01:40 Admitted to Med/surg accompanied by tech, via wheelchair, with chart, Report called to tr5 Carlie RN 01:40 Condition: stable 01:40 Instructed on the need for admit. 02:04 Patient left the ED. tr5 Signatures: Suly Chandra ds1 Rock Ochoa MD MD wa Rodriguez, Tommie, RN RN tr5
[2018-11-07] MEDS ORDERED: MORPHINE 2 MG/ML SYR IV PRN (01:08)
[2018-11-07] MEDS ORDERED: ACETAMINOPHEN 500 MG TAB PO PRN (01:08)
[2018-11-07] MEDS ORDERED: DIPHENHYDRAMINE 50 MG/ML VIAL IV PRN (01:08)
[2018-11-07] MEDS ORDERED: ONDANSETRON 4 MG/2 ML VIAL IV PRN (01:08)
[2018-11-07] MEDS ORDERED: NA CHLORIDE 0.9% 1,000 ML IV SCH (02:00)
[2018-11-07 02:18] VITALS: BMI 58.6
[2018-11-07 02:33] VITALS: O2SAT 97
[2018-11-07 04:54] VITALS: TEMP 97.2
[2018-11-07 06:26] LABS: Protime INR 0.99
[2018-11-07 06:34] LABS: Absolute Lymphocytes (CBC) 1.1 K/uL (0.7-4.9); Basophils % 0.5 % (0-1.3); Hematocrit 45.3 % (36.0-45.0); Lymphocytes % 7.5 % (15.3-44.8); MPV 9.9 fL (7.6-11.3); RBC Red Blood Cell Count 5.55 M/uL (3.86-4.86)
[2018-11-07 07:00] LABS: ALT/SGPT 19 U/L (12-78); AST/SGOT 6 U/L (15-37); Albumin 3.6 g/dL (3.4-5.0); Alkaline Phosphatase 116 U/L (45-117); BUN Blood Urea Nitrogen 20 mg/dL (7-18); Bicarbonate 26 mmol/L (21-32); Bilirubin Total 0.3 mg/dL (0.2-1.0); Glucose Level 169 mg/dL (74-106); Potassium 4.6 mmol/L (3.5-5.1); Protein, Total 8.7 g/dL (6.4-8.2); Sodium Level 137 mmol/L (136-145); Troponin I < 0.02 ng/mL (0.0-0.045)
[2018-11-07] MEDS ORDERED: FAMOTIDINE 20 MG/2 ML VIAL IV SCH (09:00)
[2018-11-07] MEDS ORDERED: AMLODIPINE 5 MG TAB PO SCH (09:00)
[2018-11-07] MEDS ORDERED: CARVEDILOL 25 MG TAB PO SCH (09:00)
[2018-11-07] MEDS ORDERED: ALLOPURINOL 100 MG TAB PO SCH (09:00)
[2018-11-07] MEDS ORDERED: HYDROCORTISONE SUC 100 MG INJ IV SCH (09:00)
[2018-11-07 09:14] LABS: Blood Morphology Comment NOT SEEN (NOT SEEN); Platelet Estimate ADEQ
--- NOTE | 2018-11-07 11:16 | P.HP ---
Certification for Inpatient Patient admitted to: Observation With expected LOS: <2 Midnights Patient will require the following post-hospital care: None Practitioner: I am a practitioner with admitting privileges, knowledge of patient current condition, hospital course, and medical plan of care. Services: Services provided to patient in accordance with Admission requirements found in Title 42 Section 412.3 of the Code of Federal Regulations Patient History Date of Service: 11/07/18 Reason for admission: ANGIOEDEMA History of Present Illness: patient is a 62-year-old female who came to the hospital with swelling of the lips and tongue. She had taken some pain medication that starts with a P, but she does not know the name of it. She has also been on losartan. She started noticing the swelling and decided to come into the hospital as she had a similar experience a few months ago with an TERRANCE-inhibitor. At that time she also had angioedema and she was discontinued from her regimen. She did well and was started on losartan which she has tolerated. This may be related to it and said that she used over the counter, but it also could be related to the losartan so will go ahead and stop this. Outpatient follow-up with her primary care provider. Continue on Benadryl and steroids and plan and discharge her home this afternoon. Allergies ibuprofen Allergy (Verified 06/30/18 15:28) Anaphylaxis tramadol Adverse Reaction (Verified 11/07/18 02:34) swelling Home Medications: Allopurinol 100 mg PO DAILY 12/28/17 Amlodipine Besylate 5 mg PO DAILY 12/28/17 Carvedilol [Coreg] 25 mg PO BID 12/28/17 Diphenhydramine [Benadryl*] 25 mg PO Q6H PRN #25 tab 07/01/18 predniSONE [Prednisone] 20 mg PO DAILY #5 tablet 11/07/18 - Past Medical/Surgical History Has patient received pneumonia vaccine in the past: No Diabetic: Yes -: High blood pressure -: Diabetes -: Arthritis -: Gout -: enlarged heart -: Gallstone removal - Family History Mother Medical History: Cancer, Other (see notes) Notes: Colon Cancer - Social History Smoking Status: Never smoker Alcohol use: No CD- Drugs: No Caffeine use: Yes Place of Residence: Home Review of Systems 10-point ROS is otherwise unremarkable Physical Examination - Vital Signs Temperature: 97.2 F Blood Pressure: 137/76 Pulse: 65 Respirations: 20 Pulse Ox (%): 98 - Physical Exam General: Alert, In no apparent distress, Oriented x3 HEENT: Atraumatic, PERRLA, Mucous membr. moist/pink, Other (Swollen lips and tongue), EOMI, Sclerae nonicteric Neck: Supple, 2+ carotid pulse no bruit, No LAD, Without JVD or thyroid abnormality Respiratory: Clear to auscultation bilaterally, Normal air movement Cardiovascular: Regular rate/rhythm, Normal S1 S2, No murmurs Gastrointestinal: Normal bowel sounds, Soft and benign, Non-distended, No tenderness Musculoskeletal: No clubbing, No swelling, No tenderness Integumentary: No rashes Neurological: Normal gait, Normal speech, Normal strength at 5/5 x4 extr, Normal tone, Sensation intact, Cranial nerves 3-12 intact, Normal affect Lymphatics: No axilla or inguinal lymphadenopathy - Studies Laboratory Data (last 24 hrs) 11/06/18 21:38: WBC Cancelled, Hgb Cancelled, Hct Cancelled, Plt Count Cancelled 11/06/18 21:38: Sodium 140, Potassium 4.5, BUN 25 H, Creatinine 0.74, Glucose 150 H, Total Bilirubin 0.2, AST 7 L, ALT 14, Alkaline Phosphatase 117 Assessment & Plan - Problems (Diagnosis) (1) Angioedema of lips Status: Acute (2) Hypertension Onset Date: 12/30/17 Status: Chronic Qualifiers: Hypertension type: essential hypertension (3) Obesity Status: Chronic Qualifiers: Obesity type: unspecified obesity type Obesity classification: unspecified obesity classification Serious obesity comorbidity presence: without serious comorbidity Qualified Code(s): E66.9 - Obesity, unspecified - Plan Plan: 1. Benadryl and steroids 2. Refrain from any medications that her similar take NSAIDs as well as hold off on losartan 3. Continue with Terrance inhibitor allergy 4. Monitor respiratory status closely 5. Plan to discharge home with outpatient follow-up if patient continues to do well today 6. Outpatient follow with PCP and ring packer Discharge Plan: Home Plan to discharge in: 24 Hours - Advance Directives Does patient have a Living Will: No Does patient have a Durable POA for Healthcare: No - Code Status/Comfort Care Code Status Assessed: Yes Code Status: Full Code Critical Care: No Time Spent Managing PTS Care (In Minutes): 45
[2018-11-08 01:04] VITALS: BP 137/76
--- NOTE | 2018-11-08 01:08 | P.DS ---
Discharge Date: 11/07/18 Disposition: ROUTINE DISCHARGE Discharge Condition: GOOD Reason for Admission: ANGIOEDEMA - Problems (1) Angioedema of lips Status: Acute (2) Hypertension Onset Date: 12/30/17 Status: Chronic Qualifiers: Hypertension type: essential hypertension (3) Obesity Status: Chronic Qualifiers: Obesity type: unspecified obesity type Obesity classification: unspecified obesity classification Serious obesity comorbidity presence: without serious comorbidity Qualified Code(s): E66.9 - Obesity, unspecified Brief History of Present Illness: patient is a 62-year-old female who came to the hospital with swelling of the lips and tongue. She had taken some pain medication that starts with a P, but she does not know the name of it. She has also been on losartan. She started noticing the swelling and decided to come into the hospital as she had a similar experience a few months ago with an ANIA-inhibitor. At that time she also had angioedema and she was discontinued from her regimen. She did well and was started on losartan which she has tolerated. This may be related to it and said that she used over the counter, but it also could be related to the losartan so will go ahead and stop this. Outpatient follow-up with her primary care provider. Continue on Benadryl and steroids and plan and discharge her home this afternoon. Hospital Course: Patient was started on steroids and Benadryl and has done well. Patient stable for discharge with outpatient follow-up. Refrain from NSAIDs and losartan along with refraining from ANIA-inhibitor. Outpatient follow-up with PCP in 1-2 weeks. Vital Signs/Physical Exam: Temp Pulse Resp BP Pulse Ox 97.2 F 65 20 137/76 98 11/08/18 01:04 11/08/18 01:04 11/08/18 01:04 11/08/18 01:04 11/08/18 01:04 General: Alert, In no apparent distress, Oriented x3 Laboratory Data at Discharge: WBC 15.2 K/uL (4.3-10.9) H 11/07/18 05:57 Hgb 14.2 g/dL (12.0-15.0) 11/07/18 05:57 Hct 45.3 % (36.0-45.0) H 11/07/18 05:57 Plt Count 197 K/uL (152-406) 11/07/18 05:57 PT 11.7 SECONDS (9.5-12.5) 11/07/18 05:57 INR 0.99 11/07/18 05:57 Sodium 137 mmol/L (136-145) 11/07/18 05:57 Potassium 4.6 mmol/L (3.5-5.1) 11/07/18 05:57 BUN 20 mg/dL (7-18) H 11/07/18 05:57 Creatinine 0.83 mg/dL (0.55-1.3) 11/07/18 05:57 Glucose 169 mg/dL (74-106) H 11/07/18 05:57 Total Bilirubin 0.3 mg/dL (0.2-1.0) 11/07/18 05:57 AST 6 U/L (15-37) L 11/07/18 05:57 ALT 19 U/L (12-78) 11/07/18 05:57 Alkaline Phosphatase 116 U/L (45-117) 11/07/18 05:57 Troponin I < 0.02 ng/mL (0.0-0.045) 11/07/18 10:20 Home Medications: Allopurinol 100 mg PO DAILY 12/28/17 Amlodipine Besylate 5 mg PO DAILY 12/28/17 Carvedilol [Coreg] 25 mg PO BID 12/28/17 Diphenhydramine [Benadryl*] 25 mg PO Q6H PRN #25 tab 07/01/18 predniSONE [Prednisone] 20 mg PO DAILY #5 tablet 11/07/18 New Medications: predniSONE [Prednisone] 20 mg PO DAILY #5 tablet Patient Discharge Instructions: OK TO DC IV AND DC HOME. FOLLOW-UP WITH PRIMARY CARE PROVIDER IN 1-2 WEEKS. OUTPT SLEEP STUDY IS ADVISED. RETURN TO THE ER IF SYMPTOMS WORSENS. STOP LOSARTAN AND REFRAIN FROM ANY NSAIDs. CALL DR. TAYLOR AT [phone] IF ANY QUESTIONS REGARDING HOSPITAL STAY. PLEASE CALL THE FLOOR AT [phone] IF ANY MEDICATION OR NURSING QUESTIONS. Diet: Regular Activity: Fall precautions Time spent managing pt's care (in minutes): 30
== END 2018-11-07 15:00 | disposition home or self-care (01) ==
LOC: ER 20:12 → 2ND 11-07 01:29
PROVIDERS: ADMIT Hospitalist; ATTEND Hospitalist
DX: T78.3XXA Angioneurotic edema, initial encounter (principal); I10 Essential (primary) hypertension; M10.9 Gout, unspecified; I51.7 Cardiomegaly; Z79.899 Other long term (current) drug therapy; E66.9 Obesity, unspecified; Z68.43 Body mass index [BMI] 50.0-59.9, adult
CPT/HCPCS: 36415; 80048; 80053; 80076; 84484; 85025; 85610; 96374; 96375; 99285; G0378; J1100; J1720; J7030

== ENCOUNTER 2024-04-26 08:49 | Emergency (ER) | payer OTHER, SELFPAY ==
--- OUTSIDE RECORDS SUMMARY | 2024-04-26 08:53 | XMS REPORT | Continuity of Care Document ---
Author Name Unknown Address [address] [facility] [place] [address] [facility] Address [address] [facility] [address] [place] [address] Care Team Providers Care Behavioral [facility] Care Coordinator Name Role Phone FÉLIX JACINTO Primary Care Physician Unavaila LISA Torres Attending Clinician Unavailab Lisa Sampson DO Attending Clinician [phone] GAEL Attending Clinician Unavailable GAEL Admitting Clinician Unavailable Payers Payer Name Policy Type Policy Number Effective Date Expirati on Date Source COUNTS INCLUDE 234 BEDS AT [facility] [employer] [place] [id number] 2024 00:00:00 Allergies, Adverse Reactions, Alerts Allergy Name Allergy Type Status Severity Reaction(s) Onset Date Inactive Date Treating Clinician Comments Source ANIA Inhibito rs - CLASS Propensi ty to adverse reaction to drug Active 8-24 00:00: 00 n Propensi ty to adverse reaction to drug Active 5-24 00:00: 00 Aspirin - Oral Propensi ty to adverse reaction to drug Active 4-10 00:00: 00 Angioten [address] Propensi ty to adverse reaction to drug Active 2-08 00:00: 00 [facility] otensin Receptor Antagoni st Propensi ty to adverse reaction to drug Inactiv e 1-31 00:00: 00 Angioten sin Receptor Antagoni [address] Propensi ty to adverse reaction to drug Inactiv e 2018-04 028 00:00: 00 Aspirin Propensi ty to adverse reaction to drug Active 06-05 00:00: 00 NO KNOWN ALLERGIE S Drug Class Active [facility] Social History Social Habit Start Date Stop Date Quantity Comments Source Sexual orientation [facility] History of tobacco use Chews Tobacco [facility] History of Social function 2015-04-21 00:00:00 2015-04-21 00:00:00 [facility] Tobacco use and exposure 2015-04-09 00:00:00 2015-04-09 00:00:00 User of smokeless tobacco [facility] Sex assigned at 1955 00:00:00 1955 00:00:00 [facility] Smoking Status Start Date Stop Date Source Ex-smoker 2015-04-09 00:00:00 2015-04-09 00:00:00 [facility] Medications Ordered Medication Name Filled Medication Name Start Date Stop Date Current Medication? Ordering Clinician Indication Dosage Frequency Signature (SIG) Comments Components Source methocarbam oL 500 mg tablet 04-19 00:00: 00 Yes [id number] 500mg Take 1 tablet by mouth 4 (four) times daily as needed for Pain (scale 7-10). Jayde [facility] ADMINISTER 1.5 MG UNDER THE SKIN WEEKLY 01-01 00:00: 00 No ADMINISTER 1.5 MG UNDER THE SKIN WEEKLY 01-01 00:00: 00 No TAKE 1 TABLET BY MOUTH EVERY NIGHT 12-13 00:00: 00 No TAKE 1 TABLET BY MOUTH EVERY NIGHT 12-13 00:00: 00 No ADMINISTER 1.5 MG UNDER THE SKIN WEEKLY 11-28 00:00: 00 No 15 ADMINISTER 1.5 MG UNDER THE SKIN WEEKLY 11-28 00:00: 00 No 15 TAKE 1 TABLET BY MOUTH EVERY NIGHT 11-08 00:00: 00 No 20 TAKE 1 TABLET BY MOUTH EVERY NIGHT 11-08 00:00: 00 No 20 diclofenac 1 % topical gel 11-06 00:00: 00 No 1% TAKE 1 TABLET BY MOUTH DAILY 0 8 00:00: 00 No 100 Dose Unknown 0 8 00:00: 00 No TAKE 1 TABLET BY MOUTH DAILY 0 11-06 00:00: 00 No 80 diclofenac 1 % topical gel 0 8 00:00: 00 No 1% TAKE 1 TABLET BY MOUTH DAILY 0 11-06 00:00: 00 No 100 Dose Unknown 0 11-06 00:00: 00 No TAKE 1 TABLET BY MOUTH DAILY 0 11-06 00:00: 00 No 80 allopurinol 100 mg tablet 0 11-02 00:00: 00 No 1mg carvedilol 25 mg tablet 0 11-02 00:00: 00 No 1mg atorvastati n 20 mg tablet 0 11-02 00:00: 00 No 1mg &lt 2021-0 11-02 00:00: 00 No Dose Unknown 0 11-02 00:00: 00 No 80 &lt 2021-0 11-02 00:00: 00 No allopurinol 100 mg tablet 0 11-02 00:00: 00 No 1mg carvedilol 25 mg tablet 0 11-02 00:00: 00 No 1mg atorvastati n 20 mg tablet 0 11-02 00:00: 00 No 1mg &lt 2021-0 11-02 00:00: 00 No Dose Unknown 0 11-02 00:00: 00 No 80 &lt 2-0 11-02 00:00: 00 No &lt 2022-0 10-30 00:00: 00 No 80 &lt 2022-0 10-30 00:00: 00 No 80 TAKE 1 TABLET BY MOUTH DAILY 0 10-27 00:00: 00 No 100 TAKE 1 TABLET BY MOUTH DAILY 0 10-27 00:00: 00 No 100 TAKE 1 TABLET BY MOUTH DAILY 0 10-23 00:00: 00 No Dose Unknown 2021-0 10-23 00:00: 00 No 80 TAKE 1 TABLET BY MOUTH DAILY 0 10-23 00:00: 00 No 100 &lt 2022-0 10-23 00:00: 00 No TAKE 1 TABLET BY MOUTH DAILY 0 10-23 00:00: 00 No Dose Unknown 0 10-23 00:00: 00 No 80 TAKE 1 TABLET BY MOUTH DAILY 0 10-23 00:00: 00 No 100 &lt 0 10-23 00:00: 00 No &lt 2021-0 7 00:00: 00 No &lt 2021-0 10-06 00:00: 00 No TAKE 1 TABLET BY MOUTH TWICE DAILY 0 09-28 00:00: 00 No TAKE 1 TABLET BY MOUTH TWICE DAILY 0 09-28 00:00: 00 No Trulicity 1.5 mg/0.5 mL subcutaneou s pen injector 0 09-23 00:00: 00 No 5mg/0.5 mL TAKE 1 TABLET BY MOUTH DAILY 0 09-23 00:00: 00 No TAKE 1 TABLET BY MOUTH DAILY 0 09-23 00:00: 00 No Trulicity 1.5 mg/0.5 mL subcutaneou s pen injector 0 09-23 00:00: 00 No 5mg/0.5 mL TAKE 1 TABLET BY MOUTH DAILY 0 09-23 00:00: 00 No TAKE 1 TABLET BY MOUTH DAILY 0 09-23 00:00: 00 No allopurinol 100 mg tablet 08-01 00:00: 00 No 1mg furosemide 80 mg tablet 08-01 00:00: 00 No 1mg carvedilol 25 mg tablet 08-01 00:00: 00 No 1mg atorvastati n 20 mg tablet 08-01 00:00: 00 No 1mg potassium chloride ER 20 mEq tablet,exte nded release 08-01 00:00: 00 No 1mEq Trulicity 1.5 mg/0.5 mL subcutaneou s pen injector 08-01 00:00: 00 No 5mg/0.5 mL allopurinol 100 mg tablet 08-01 00:00: 00 No 1mg furosemide 80 mg tablet 08-01 00:00: 00 No 1mg carvedilol 25 mg tablet 08-01 00:00: 00 No 1mg atorvastati n 20 mg tablet 0 4- 00:00: 00 No 1mg potassium chloride ER 20 mEq tablet,exte nded release 0 - 00:00: 00 No 1mEq Trulicity 1.5 mg/0.5 mL subcutaneou s pen injector 2021-0 - 00:00: 00 No 5mg/0.5 mL Trulicity 1.5 mg/0.5 mL subcutaneou s pen injector 2021-0 4- 00:00: 00 No 5mg/0.5 mL Trulicity 1.5 mg/0.5 mL subcutaneou s pen injector 2021-0 07-13 00:00: 00 No 5mg/0.5 mL Trulicity 1.5 mg/0.5 mL subcutaneou s pen injector 2021-0 2-09 00:00: 00 No 5mg/0.5 mL Trulicity 1.5 mg/0.5 mL subcutaneou s pen injector 2021-0 2-09 00:00: 00 No 5mg/0.5 mL furosemide 80 mg tablet 0 1-05 00:00: 00 No 1mg allopurinol 100 mg tablet 0 1-05 00:00: 00 No 1mg carvedilol 25 mg tablet 0 1-05 00:00: 00 No 1mg atorvastati n 20 mg tablet 0 1-05 00:00: 00 No 1mg potassium chloride ER 20 mEq tablet,exte nded release 0 1-05 00:00: 00 No 1mEq Trulicity 0.75 mg/0.5 mL subcutaneou s pen injector 2021-0 1-05 00:00: 00 No 5mg/0.5 mL furosemide 80 mg tablet 0 1-05 00:00: 00 No 1mg allopurinol 100 mg tablet 0 1-05 00:00: 00 No 1mg carvedilol 25 mg tablet 2021-0 1-05 00:00: 00 No 1mg atorvastati n 20 mg tablet 2021-0 1-05 00:00: 00 No 1mg potassium chloride ER 20 mEq tablet,exte nded release 04-12 00:00: 00 No 1mEq Trulicity 0.75 mg/0.5 mL subcutaneou s pen injector 04-12 00:00: 00 No 5mg/0.5 mL allopurinol 100 mg tablet 2020-04 00:00: 00 No 1mg furosemide 80 mg tablet 2020-04 00:00: 00 No 1mg carvedilol 25 mg tablet 2020-04 00:00: 00 No 1mg atorvastati n 20 mg tablet 2020-04 00:00: 00 No 1mg potassium chloride ER 20 mEq tablet,exte nded release 2020-04 00:00: 00 No 1mEq allopurinol 100 mg tablet 2020-04 00:00: 00 No 1mg furosemide 80 mg tablet 2020-04 00:00: 00 No 1mg carvedilol 25 mg tablet 2020-04 00:00: 00 No 1mg atorvastati n 20 mg tablet 2020-04 00:00: 00 No 1mg potassium chloride ER 20 mEq tablet,exte nded release 2020-04 00:00: 00 No 1mEq furosemide 80 mg tablet 2020-04 00:00: 00 No 1mg allopurinol 100 mg tablet 2020-04 00:00: 00 No 1mg carvedilol 25 mg tablet 2020-04 00:00: 00 No 1mg atorvastati n 20 mg tablet 2020-04 00:00: 00 No 1mg potassium chloride ER 20 mEq tablet,exte nded release 2020-04 00:00: 00 No 1mEq furosemide 80 mg tablet 2020-04 00:00: 00 No 1mg allopurinol 100 mg tablet 2020-04 00:00: 00 No 1mg carvedilol 25 mg tablet 2020-04 00:00: 00 No 1mg atorvastati n 20 mg tablet 2020-04 00:00: 00 No 1mg potassium chloride ER 20 mEq tablet,exte nded release 2021-1 1-15 00:00: 00 No 1mEq furosemide 80 mg tablet 0 - 00:00: 00 No 1mg allopurinol 100 mg tablet 0 08-10 00:00: 00 No 1mg carvedilol 25 mg tablet 0 - 00:00: 00 No 1mg atorvastati n 20 mg tablet - 00:00: 00 No 1mg potassium chloride ER 20 mEq tablet,exte nded release 08-10 00:00: 00 No 1mEq furosemide 80 mg tablet 0 08-10 00:00: 00 No 1mg allopurinol 100 mg tablet 0 08-10 00:00: 00 No 1mg carvedilol 25 mg tablet 08-10 00:00: 00 No 1mg atorvastati n 20 mg tablet 08-10 00:00: 00 No 1mg potassium chloride ER 20 mEq tablet,exte nded release 08-10 00:00: 00 No 1mEq allopurinol 100 mg tablet 0 - 00:00: 00 No 1mg atorvastati n 20 mg tablet 0 3- 00:00: 00 No 1mg carvedilol 25 mg tablet 0 3- 00:00: 00 No 1mg furosemide 80 mg tablet 0 3- 00:00: 00 No 1mg potassium chloride ER 20 mEq tablet,exte nded release 0 3- 00:00: 00 No 2mEq allopurinol 100 mg tablet 0 3- 00:00: 00 No 1mg atorvastati n 20 mg tablet 0 3- 00:00: 00 No 1mg carvedilol 25 mg tablet 0 3- 00:00: 00 No 1mg furosemide 80 mg tablet 0 3- 00:00: 00 No 1mg potassium chloride ER 20 mEq tablet,exte nded release 0 3- 00:00: 00 No 2mEq furosemide 80 mg tablet 0 2-23 00:00: 00 No 1mg carvedilol 25 mg tablet 0 2- 00:00: 00 No 1mg potassium chloride ER 20 mEq tablet,exte nded release 05-31 00:00: 00 No 2mEq Tessalon Perles 100 mg capsule 2 00:00: 00 No 1mg atorvastati n 20 mg tablet 05-31 00:00: 00 No 1mg allopurinol 100 mg tablet 2 00:00: 00 No 1mg furosemide 80 mg tablet 2 00:00: 00 No 1mg carvedilol 25 mg tablet 05-31 00:00: 00 No 1mg potassium chloride ER 20 mEq tablet,exte nded release 05-31 00:00: 00 No 2mEq Tessalon Perles 100 mg capsule 05-31 00:00: 00 No 1mg atorvastati n 20 mg tablet 05-31 00:00: 00 No 1mg allopurinol 100 mg tablet 05-31 00:00: 00 No 1mg furosemide 80 mg tablet 2 00:00: 00 No 1mg furosemide 80 mg tablet 05-27 00:00: 00 No 1mg allopurinol 100 mg tablet 05-02 00:00: 00 No 1mg atorvastati n 20 mg tablet 05-02 00:00: 00 No 1mg carvedilol 25 mg tablet 05-02 00:00: 00 No 1mg furosemide 80 mg tablet 05-02 00:00: 00 No 1mg potassium chloride ER 20 mEq tablet,exte nded release 05-02 00:00: 00 No 2mEq allopurinol 100 mg tablet 05-02 00:00: 00 No 1mg atorvastati n 20 mg tablet 05-02 00:00: 00 No 1mg carvedilol 25 mg tablet 05-02 00:00: 00 No 1mg furosemide 80 mg tablet 05-02 00:00: 00 No 1mg potassium chloride ER 20 mEq tablet,exte nded release 05-02 00:00: 00 No 2mEq diclofenac 1 % topical gel 2019-04 00:00: 00 No 1% cetirizine 10 mg tablet 2019-04 2- 00:00: 00 No 1mg atorvastati n 20 mg tablet 2019-04 2 00:00: 00 No 1mg allopurinol 100 mg tablet 2019-04 2 00:00: 00 No 1mg furosemide 80 mg tablet 2019-04 2 00:00: 00 No 1mg carvedilol 25 mg tablet 2019-04 2 00:00: 00 No 1mg potassium chloride ER 20 mEq tablet,exte nded release 2019-04 2 00:00: 00 No 2mEq diclofenac 1 % topical gel 2019-04 2 00:00: 00 No 1% cetirizine 10 mg tablet 2019-04 00:00: 00 No 1mg atorvastati n 20 mg tablet 2019-04 00:00: 00 No 1mg allopurinol 100 mg tablet 2019-04 2 00:00: 00 No 1mg furosemide 80 mg tablet 2019-04 2 00:00: 00 No 1mg carvedilol 25 mg tablet 2019-04 00:00: 00 No 1mg potassium chloride ER 20 mEq tablet,exte nded release 2019-04 00:00: 00 No 2mEq carvedilol 25 mg tablet 2019-04 00:00: 00 No 1mg carvedilol 25 mg tablet 2019-04 00:00: 00 No 1mg allopurinol 100 mg tablet 12-24 00:00: 00 No 1mg atorvastati n 20 mg tablet 12-24 00:00: 00 No 1mg cetirizine 10 mg tablet 12-24 00:00: 00 No 1mg carvedilol 25 mg tablet 12-24 00:00: 00 No 1mg verapamil ER 180 mg 24 hr capsule,ext ended release 12-24 00:00: 00 No 1mg allopurinol 100 mg tablet 12-24 00:00: 00 No 1mg atorvastati n 20 mg tablet 12-24 00:00: 00 No 1mg cetirizine 10 mg tablet 12-24 00:00: 00 No 1mg carvedilol 25 mg tablet 2019-0 9-18 00:00: 00 No 1mg verapamil ER 180 mg 24 hr capsule,ext ended release 2019-0 9-18 00:00: 00 No 1mg atorvastati n 20 mg tablet 2019-0 8-19 00:00: 00 No 1mg allopurinol 100 mg tablet 2019-0 8-19 00:00: 00 No 1mg carvedilol 25 mg tablet 2019-0 8-19 00:00: 00 No 1mg verapamil ER 180 mg 24 hr capsule,ext ended release 0 8- 00:00: 00 No 1mg atorvastati n 20 mg tablet 0 8- 00:00: 00 No 1mg allopurinol 100 mg tablet 0 8- 00:00: 00 No 1mg carvedilol 25 mg tablet 0 8- 00:00: 00 No 1mg verapamil ER 180 mg 24 hr capsule,ext ended release 0 8- 00:00: 00 No 1mg cetirizine 10 mg tablet 2019-0 2-10 00:00: 00 No 1mg atorvastati n 20 mg tablet 0 2-10 00:00: 00 No 1mg allopurinol 100 mg tablet 0 2-10 00:00: 00 No 1mg carvedilol 25 mg tablet 2019-0 2-10 00:00: 00 No 1mg verapamil ER 180 mg 24 hr capsule,ext ended release 0 2-10 00:00: 00 No 1mg cetirizine 10 mg tablet 2019-0 2-10 00:00: 00 No 1mg atorvastati n 20 mg tablet 2019-0 2-10 00:00: 00 No 1mg allopurinol 100 mg tablet 2019-0 2-10 00:00: 00 No 1mg carvedilol 25 mg tablet 2019-0 2-10 00:00: 00 No 1mg verapamil ER 180 mg 24 hr capsule,ext ended release 2019-0 2-10 00:00: 00 No 1mg allopurinol 100 mg tablet 2019-0 1-30 00:00: 00 No 1mg atorvastati n 20 mg tablet 2019-0 1-30 00:00: 00 No 1mg verapamil 120 mg tablet 2019-0 1-30 00:00: 00 No 1mg carvedilol 25 mg tablet 05-07 00:00: 00 No 1mg allopurinol 100 mg tablet 05-07 00:00: 00 No 1mg atorvastati n 20 mg tablet 05-07 00:00: 00 No 1mg verapamil 120 mg tablet 05-07 00:00: 00 No 1mg carvedilol 25 mg tablet 05-07 00:00: 00 No 1mg atorvastati n 20 mg tablet 05-05 00:00: 00 No 1mg verapamil 120 mg tablet 05-05 00:00: 00 No 1mg allopurinol 100 mg tablet 05-05 00:00: 00 No 1mg carvedilol 25 mg tablet 05-05 00:00: 00 No 1mg atorvastati n 20 mg tablet 05-05 00:00: 00 No 1mg verapamil 120 mg tablet 05-05 00:00: 00 No 1mg allopurinol 100 mg tablet 05-05 00:00: 00 No 1mg carvedilol 25 mg tablet 05-05 00:00: 00 No 1mg verapamil 120 mg tablet 2018-04 00:00: 00 No 1mg allopurinol 100 mg tablet 2018-04 00:00: 00 No 1mg atorvastati n 20 mg tablet 2018-04 00:00: 00 No 1mg carvedilol 25 mg tablet 2018-04 00:00: 00 No 1mg verapamil 120 mg tablet 2018-04 00:00: 00 No 1mg allopurinol 100 mg tablet 2018-04 00:00: 00 No 1mg atorvastati n 20 mg tablet 2018-04 00:00: 00 No 1mg carvedilol 25 mg tablet 2018-04 00:00: 00 No 1mg allopurinol 100 mg tablet 2018-04 00:00: 00 No 1mg verapamil 120 mg tablet 2018-04 00:00: 00 No 1mg carvedilol 25 mg tablet 2018-04 00:00: 00 No 1mg allopurinol 100 mg tablet 2018-04 00:00: 00 No 1mg verapamil 120 mg tablet 2018-04 00:00: 00 No 1mg carvedilol 25 mg tablet 2018-04 00:00: 00 No 1mg allopurinol 100 mg tablet 2018-04 00:00: 00 No 1mg verapamil 120 mg tablet 2018-04 00:00: 00 No 1mg carvedilol 25 mg tablet 2018-04 00:00: 00 No 1mg allopurinol 100 mg tablet 2018-04 00:00: 00 No 1mg verapamil 120 mg tablet 2018-04 00:00: 00 No 1mg carvedilol 25 mg tablet 2018-04 00:00: 00 No 1mg allopurinol 100 mg tablet 2018-04 0 00:00: 00 No 1mg carvedilol 25 mg tablet 2018-04 00:00: 00 No 1mg allopurinol 100 mg tablet 2018-04 0 00:00: 00 No 1mg carvedilol 25 mg tablet 2018-04 00:00: 00 No 1mg allopurinol 100 mg tablet 12-08 00:00: 00 No 1mg carvedilol 25 mg tablet 12-08 00:00: 00 No 1mg allopurinol 100 mg tablet 12-08 00:00: 00 No 1mg carvedilol 25 mg tablet 12-08 00:00: 00 No 1mg amlodipine 10 mg tablet 11-12 00:00: 00 No 1mg amlodipine 10 mg tablet 11-12 00:00: 00 No 1mg amlodipine 5 mg tablet 10-03 00:00: 00 No 1mg allopurinol 100 mg tablet 10-03 00:00: 00 No 1mg carvedilol 25 mg tablet 10-03 00:00: 00 No 1mg amlodipine 5 mg tablet 10-03 00:00: 00 No 1mg allopurinol 100 mg tablet 10-03 00:00: 00 No 1mg carvedilol 25 mg tablet 10-03 00:00: 00 No 1mg amlodipine 5 mg tablet 08-29 00:00: 00 No 1mg allopurinol 100 mg tablet 08-29 00:00: 00 No 1mg carvedilol 25 mg tablet 08-29 00:00: 00 No 1mg metformin ER 500 mg tablet,exte nded release 24 hr 08-29 00:00: 00 No 1mg amlodipine 5 mg tablet 08-29 00:00: 00 No 1mg allopurinol 100 mg tablet 08-29 00:00: 00 No 1mg carvedilol 25 mg tablet 08-29 00:00: 00 No 1mg metformin ER 500 mg tablet,exte nded release 24 hr 08-29 00:00: 00 No 1mg amlodipine 5 mg tablet 07-21 00:00: 00 No 1mg allopurinol 100 mg tablet 07-21 00:00: 00 No 1mg carvedilol 25 mg tablet 07-21 00:00: 00 No 1mg metformin ER 500 mg tablet,exte nded release 24 hr 07-21 00:00: 00 No 1mg amlodipine 5 mg tablet 07-21 00:00: 00 No 1mg allopurinol 100 mg tablet 07-21 00:00: 00 No 1mg carvedilol 25 mg tablet 07-21 00:00: 00 No 1mg metformin ER 500 mg tablet,exte nded release 24 hr 07-21 00:00: 00 No 1mg allopurinol 100 mg tablet 16 00:00: 00 No 1mg amlodipine 5 mg tablet 16 00:00: 00 No 1mg allopurinol 100 mg tablet 16 00:00: 00 No 1mg carvedilol 25 mg tablet 16 00:00: 00 No 1mg amlodipine 5 mg tablet 16 00:00: 00 No 1mg carvedilol 25 mg tablet 16 00:00: 00 No 1mg allopurinol 100 mg tablet 04-17 00:00: 00 No 1mg amlodipine 5 mg tablet 04-17 00:00: 00 No 1mg carvedilol 25 mg tablet 04-17 00:00: 00 No 1mg allopurinol 100 mg tablet 04-17 00:00: 00 No 1mg amlodipine 5 mg tablet 04-17 00:00: 00 No 1mg carvedilol 25 mg tablet 04-17 00:00: 00 No 1mg metformin ER 500 mg tablet,exte nded release 24 hr 2017-04 00:00: 00 No 1mg metformin ER 500 mg tablet,exte nded release 24 hr 2017-04 00:00: 00 No 1mg allopurinol 100 mg tablet 2017-04 00:00: 00 No 1mg amlodipine 5 mg tablet 2017-04 00:00: 00 No 1mg carvedilol 25 mg tablet 2017-04 00:00: 00 No 1mg allopurinol 100 mg tablet 2017-04 00:00: 00 No 1mg amlodipine 5 mg tablet 2017-04 00:00: 00 No 1mg carvedilol 25 mg tablet 2017-04 00:00: 00 No 1mg allopurinol 100 mg tablet 2017-04 008 00:00: 00 No 1mg amlodipine 5 mg tablet 2017-04 008 00:00: 00 No 1mg carvedilol 25 mg tablet 2017-04 008 00:00: 00 No 1mg allopurinol 100 mg tablet 2017-04 008 00:00: 00 No 1mg amlodipine 5 mg tablet 2017-04 008 00:00: 00 No 1mg carvedilol 25 mg tablet 2017-04 008 00:00: 00 No 1mg amlodipine 5 mg tablet 10-01 00:00: 00 No 1mg carvedilol 25 mg tablet 10-01 00:00: 00 No 1mg amlodipine 5 mg tablet 10-01 00:00: 00 No 1mg carvedilol 25 mg tablet 10-01 00:00: 00 No 1mg allopurinol 100 mg tablet 09-10 00:00: 00 No 1mg allopurinol 100 mg tablet 09-10 00:00: 00 No 1mg amlodipine 5 mg tablet 07-09 00:00: 00 No 1mg carvedilol 25 mg tablet 07-09 00:00: 00 No 1mg amlodipine 5 mg tablet 07-09 00:00: 00 No 1mg carvedilol 25 mg tablet 07-09 00:00: 00 No 1mg allopurinol 100 mg tablet 06-12 00:00: 00 No 1mg amlodipine 5 mg tablet 06-12 00:00: 00 No 1mg allopurinol 100 mg tablet 06-12 00:00: 00 No 1mg amlodipine 5 mg tablet 06-12 00:00: 00 No 1mg carvedilol 25 mg tablet 06-05 00:00: 00 No 1mg Keflex 500 mg capsule 06-05 00:00: 00 No 1mg carvedilol 25 mg tablet 06-05 00:00: 00 No 1mg Keflex 500 mg capsule 06-05 00:00: 00 No 1mg allopurinol 100 mg tablet 09-28 00:00: 00 No 1mg carvedilol 25 mg tablet 09-28 00:00: 00 No 1mg allopurinol 100 mg tablet 09-28 00:00: 00 No 1mg carvedilol 25 mg tablet 09-28 00:00: 00 No 1mg hydrochloro thiazide (ESIDRIX) 25 mg tablet 04-09 22:12: 07 Yes 25mg Take 25 mg by mouth daily. [facility] carvedilol (COREG) 25 mg tablet 04-09 22:12: 07 Yes 25mg Take 25 mg by mouth 2 (two) times daily with meals. [facility] doxycycline (VIBRAMYCIN ) 100 mg capsule 04-09 00:00: 00 Yes 100mg Take 1 Cap by mouth 2 (two) times daily. [facility] Vital Signs Vital Name Observation Time Observation Value Comments Cydney villeda Systolic blood pressure 2024-04-19 16:22:07 151 mm[Hg] [facility] Diastolic blood pressure 2024-04-19 16:22:07 97 mm[Hg] [facility] Heart rate 2024-04-19 16:22:07 69 /min [facility] Body temperature 2024-04-19 16:22:07 36.39 Luz Maria [facility] Respiratory rate 2024-04-19 16:22:07 19 /min [facility] Oxygen saturation in Arterial blood by Pulse oximetry 2024-04-19 16:22:07 97 /min B[place]am o [facility] Body height 2024-04-19 14:03:00 160 cm [facility] Body weight 2024-04-19 14:03:00 127.007 kg [facility] BMI 2024-04-19 14:03:00 49.60 kg/m2 [facility] BP Systolic 2022-01-10 09:34:00 174 mm[Hg] BP Diastolic 2022-01-10 09:34:00 82 mm[Hg] Weight Measured 2022-01-10 09:34:00 308.00 pounds Height Measured 2022-01-10 09:34:00 67.00 inches Body Temperature 2022-01-10 09:34:00 98.00 degrees Heart Rate 2022-01-10 09:34:00 68.00 /min Respiratory Rate 2022-01-10 09:34:00 16.00 /min BP Systolic 2021-08-01 11:28:00 136 mm[Hg] BP Diastolic 2021-08-01 11:28:00 84 mm[Hg] Weight Measured 2021-08-01 11:28:00 326.00 pounds Height Measured 2021-08-01 11:28:00 67.00 inches Body Temperature 2021-08-01 11:28:00 97.50 degrees Heart Rate 2021-08-01 11:28:00 69.00 /min Respiratory Rate 2021-08-01 11:28:00 BP Systolic 2020-08-10 11:21:00 175 mm[Hg] BP Diastolic 2020-08-10 11:21:00 79 mm[Hg] Weight Measured 2020-08-10 11:21:00 335.20 pounds Height Measured 2020-08-10 11:21:00 67.00 inches Body Temperature 2020-08-10 11:21:00 97.80 degrees Heart Rate 2020-08-10 11:21:00 64.00 /min Respiratory Rate 2020-08-10 11:21:00 BP Systolic 2019-05-18 15:24:00 149 mm[Hg] BP Diastolic 2019-05-18 15:24:00 83 mm[Hg] Weight Measured 2019-05-18 15:24:00 351.20 pounds Height Measured 2019-05-18 15:24:00 67.00 inches Body Temperature 2019-05-18 15:24:00 98.10 degrees Heart Rate 2019-05-18 15:24:00 62.00 /min Respiratory Rate 2019-05-18 15:24:00 16.00 /min BP Systolic 2019-01-19 08:47:00 131 mm[Hg] BP Diastolic 2019-01-19 08:47:00 70 mm[Hg] Weight Measured 2019-01-19 08:47:00 353.60 pounds Height Measured 2019-01-19 08:47:00 67.00 inches Body Temperature 2019-01-19 08:47:00 98.10 degrees Heart Rate 2019-01-19 08:47:00 64.00 /min Respiratory Rate 2019-01-19 08:47:00 BP Systolic 2018-10-03 15:33:00 124 mm[Hg] BP Diastolic 2018-10-03 15:33:00 73 mm[Hg] Weight Measured 2018-10-03 15:33:00 Height Measured 2018-10-03 15:33:00 67.00 inches Body Temperature 2018-10-03 15:33:00 97.50 degrees Heart Rate 2018-10-03 15:33:00 85.00 /min Respiratory Rate 2018-10-03 15:33:00 16.00 /min BP Systolic 2018-04-23 11:39:00 136 mm[Hg] BP Diastolic 2018-04-23 11:39:00 79 mm[Hg] Weight Measured 2018-04-23 11:39:00 Height Measured 2018-04-23 11:39:00 Body Temperature 2018-04-23 11:39:00 Heart Rate 2018-04-23 11:39:00 Respiratory Rate 2018-04-23 11:39:00 BP Systolic 2018-04-23 11:12:00 143 mm[Hg] BP Diastolic 2018-04-23 11:12:00 81 mm[Hg] Weight Measured 2018-04-23 11:12:00 329.00 pounds Height Measured 2018-04-23 11:12:00 67.00 inches Body Temperature 2018-04-23 11:12:00 98.10 degrees Heart Rate 2018-04-23 11:12:00 65.00 /min Respiratory Rate 2018-04-23 11:12:00 17.00 /min BP Systolic 2018-03-03 10:16:00 182 mm[Hg] BP Diastolic 2018-03-03 10:16:00 96 mm[Hg] Weight Measured 2018-03-03 10:16:00 Height Measured 2018-03-03 10:16:00 Body Temperature 2018-03-03 10:16:00 Heart Rate 2018-03-03 10:16:00 Respiratory Rate 2018-03-03 10:16:00 BP Systolic 2018-03-03 10:13:00 179 mm[Hg] BP Diastolic 2018-03-03 10:13:00 106 mm[Hg] Weight Measured 2018-03-03 10:13:00 332.60 pounds Height Measured 2018-03-03 10:13:00 67.00 inches Body Temperature 2018-03-03 10:13:00 98.20 degrees Heart Rate 2018-03-03 10:13:00 77.00 /min Respiratory Rate 2018-03-03 10:13:00 18.00 /min Procedures Procedure Date / Time Performed Performing Clinic[facility] n Source CT ABDOMEN PELVIS WO CONTRAST 2024-04-19 15:05:12 Lisa Orosco [facility] URINALYSIS 2024-04-19 14:34:00 [facility] 2024-04-19 14:08:00 Lisa Orosco [facility] Plan of Care Planned Activity Planned Date Details Comments Source Goal Plan of Care Note [code = 79407-3] Goal Plan of Care Note [code = 46117-7] Goal Plan of Care Note [code = 16491-6] Goal Plan of Care Note [code = 11879-4] Goal Plan of Care Note [code = 86261-3] Goal Plan of Care Note [code = 16319-1] Goal Plan of Care Note [code = 28749-2] Goal Plan of Care Note [code = 27087-0] Goal Plan of Care Note [code = 99423-2] Goal Plan of Care Note [code = 87336-0] Goal Plan of Care Note [code = 95117-2] Goal Plan of Care Note [code = 41605-4] Goal Plan of Care Note [code = 96068-0] Goal Plan of Care Note [code = 76448-8] Goal Plan of Care Note [code = 21103-6] Goal Plan of Care Note [code = 05122-2] Goal Plan of Care Note [code = 26680-4] Goal Plan of Care Note [code = 58693-7] Goal Plan of Care Note [code = 76903-4] Goal Plan of Care Note [code = 64761-5] Goal Plan of Care Note [code = 98123-8] Goal Plan of Care Note [code = 16266-7] Goal Plan of Care Note [code = 94313-0] Goal Plan of Care Note [code = 52996-9] Goal Plan of Care Note [code = 65517-1] Goal Plan of Care Note [code = 25267-3] Goal Plan of Care Note [code = 78895-9] Goal Plan of Care Note [code = 99421-7] Goal Plan of Care Note [code = 89473-9] Goal Plan of Care Note [code = 94059-2] Goal Plan of Care Note [code = 53135-6] Goal Plan of Care Note [code = 50989-0] Goal Plan of Care Note [code = 31487-4] Goal Plan of Care Note [code = 74037-6] Encounters Start Date/Time End Date/Time Encounter Type Admission Type Attending [facility] [place] Facility Care Department Encounter ID Source 2024-04-19 08:09:00 2024-04-19 10:23:00 Emergency X LISA OROSCO [facility] ERT [id number] [facility] 2024-04-19 08:09:00 2024-04-19 10:23:00 Emergency Lisa Orosco [facility] AT [facility] [id number] [facility] 2023-06-11 10:08:06 2023-06-11 10:08:06 Outpatient [facility] [id number] Keith Reyes 2023-03-21 11:44:52 2023-03-21 11:44:52 Outpatient [facility] [id number] Keith Reyes 2022-10-04 09:20:19 2022-10-04 09:20:19 Outpatient [facility] [id number] Keith Reyes 2022-07-09 13:34:11 2022-07-09 13:34:11 Outpatient [facility] [id number] Keith Reyes 2022-07-03 08:37:58 2022-07-03 08:37:58 Outpatient [facility] [id number] Keith Reyes 2022-04-18 10:58:49 2022-04-18 10:58:49 Outpatient [facility] [id number] Keith Reyes 2022-01-10 09:25:30 2022-01-10 09:25:30 Outpatient [facility] [id number] Keith Reyes 2022-01-10 00:00:00 2022-01-10 00:00:00 Outpatient Visit [id number] 2021-11-02 00:00:00 2021-11-02 00:00:00 Outpatient Visit [id number] 2021-10-24 12:40:00 2021-10-24 12:40:00 Outpatient [facility] [id number] [facility] Program Results Test Description Test Time Test Comments Results Result Comments Source CT Abdomen pelvis wo contrast 2024-04 16:02:1 7 ORDERING PROVIDER: MAGDALENA OROSCO HISTORY: Flank pain, kidney stone suspected TECHNIQUE: Axial CT images of the abdomen and pelvis were obtained withoutIV contrast. Coronal and sagittal reformations were generated andevaluated. CT scan is performed using the ALARA principle. Technical Quality: Diagnostic COMPARISON: None FINDINGS: Visualized lung bases: ?No acute or consolidative airspace disease withinthe visualized lung bases. Partially visualized heart appears enlarged. Liver: ?Normal in morphology and attenuation. No focal hepatic lesions aredetected.Gallbladder: ?Partially distended without evidence of biliary ductaldilation. Spleen: Normal in size and morphology.Pancreas: Normal morphology without evidence of peripancreatic fatstranding. Adrenal glands: ?Normal in size without nodularity.Kidneys: ?The right kidney is asymmetrically smaller than left withfindings suggesting multifocal renal cortical scarring. ?Mild lefthydroureteronephrosis without evidence of an obstructing radiopaque stone. No perinephric edema. Overall no radiopaque stones are detected, with renalmedullary calcifications favored to be vascular in etiology. Bowel: The visualized distal esophagus and stomach are within normallimits. The small bowel is normal in configuration without evidence ofobstruction or inflammation. ?The appendix is not discretely visualized,however, no right lower quadrant/pericecal inflammation. The colon isnormal in caliber without wall thickening or inflammatory change. Mesentery and retroperitoneum: No free intraperitoneal air or fluid. Nofocal mesenteric fat stranding. No pathologically enlarged lymph nodes aredetected on this noncontrast exam. ?Atherosclerotic calcifications are seenin the aorta. The IVC is unremarkable. Urinary bladder: Urinary bladder is partially distended without evidence ofwall thickening. No evidence of intravesicular stones. Reproductive organs: Uterus and ovaries have an unremarkable noncontrastappearance. Body wall: ?The visualized superficial soft tissues appear within normallimits. ?Degenerative changes are seen in the spine and pelvis, most severeat the hips. No acute or suspicious osseous abnormalities. [facility] >30DAYS)2024-04-19 14:08:00* Test Item Value Reference Range Interpretation Comme [facility] PO[facility] Glu (age>30days) (test code = 3342) 101 mg/dL 70-110 Lab Interpretation (test cod e = 15169-2) [facility] [id number] 05:14:08* Test Item Value Reference Range Interpretation Comme nts GLUCOSE (test code = 2217) 87 MG/DL 70-99 BUN (test code = 220) 18 MG/DL 8-23 CREATININE (test code = 2214) 0.77 MG/DL 0.60-1.30 eGFR (2020 CKD-EPI) (test co de = 89118) 84 ML/MIN/1.73 >60 CALC BUN/CREAT (test code = 2235) 23 RATIO 6-28 SODIUM (test code = 223) 141 MEQ/L 133-146 POTASSIUM (test code = 2228) 3.9 MEQ/L 3.5-5.4 CHLORIDE (test code = 2215) 103 MEQ/L 95-107 CARBON DIOXIDE (test code = 220) 27 MEQ/L 19-31 CALCIUM (test code = 2209) 10.2 MG/DL 8.5-10.5 PROTEIN, TOTAL (test code = 222) 7.5 G/DL 6.1-8.3 ALBUMIN (test code = 2200) 4.3 G/DL 3.5-5.2 CALC GLOBULIN (test code = 2240) 3.2 G/DL 1.9-3.7 CALC A/G RATIO (test code = 2234) 1.3 RATIO 1.0-2.6 BILIRUBIN, TOTAL (test code = 220) 0.4 MG/DL <=1.2 ALKALINE PHOSPHATASE (test code = 2204) 101 U/L 40-142 AST (test code = 2218) 15 U/L 9-40 ALT (test code = 2219) 11 U/L 5-40 LIPID [id number] 05:14:08* Test Item Value Reference Range Interpretation Comme nts CHOLESTEROL (test code = 2210) 154 MG/DL <200 TRIGLYCERIDES (test code = 2232) 119 MG/DL <150 HDL CHOLESTEROL (test code = 2220) 43 MG/DL >39 CALC LDL CHOL (test code = 2237) 89 MG/DL <100 NOTE: CALCULATED LDL IS BASED ON ROHAN-CHRISTIAN METHOD WHICHINCLUDES ADJUSTABLE TRIGLYCERIDE:VLDL CHOLESTEROL RATIO.THIS FACTOR VARIES BY MEASURED TRIGLYCERIDE AND NON-HDLCHOLESTEROL CONCENTRATIONS WITH INCREASED CALCULATED LDL SEENIN HIGHER TRIGLYCERIDE OR LOWER NON-HDL SPECIMENS. FOR MOREINFORMATION, SEE CLIENT ANNOUNCEMENT AT [email or web address] RISK RATIO LDL/HDL (test code = 2238) 2.07 RATIO <3.22 UNLESS OTHERW ISE INDICATED, ALL TESTING PERFORMED AT [facility] [address] [place] [address] MUD TEMPERER: BONILLA VELASCO M.D. CLIA NUMBER [id number] [place]. [id number] HEMOGLOBIN [id number] 03:05:26* Test Item Value Reference Range Interpretation Comme nts HEMOGLOBIN A1c (test code = 84209) 5.8 % 4.2-5.6 H [employer] DIAB[employer] S ASSOCIATION GUIDELINES FOR HGB A1C: PREDIABETES/INCREASED RISK . . . . . . . 5.7-6.4% DIAGNOSIS OF DIABETES . . . . . . . . . >=6.5% WITH CONFIRMATION OR APPROPRIATE SYMPTOMS NOTE: ASSAY MAY BE AFFECTED BY HEMOGLOBINOPATHIES (SICKLE CELL ANEMIA, S-C DISEASE, OTHERS) OR ARTIFICIALLY LOWERED BY DECREASED RED CELL SURVIVAL (HEMOLYTIC ANEMIAS, BLOOD LOSS, ETC.). CONSIDER ALTERNATE TESTING OR LABORATORY CONSULTATION. HEMOGLOBIN [id number] 04:34:37* Test Item Value Reference Range Interpretation Comme nts HEMOGLOBIN A1c (test code = 33693) 6.2 % 4.2-5.6 H ALBUMIN, URINE, [id number] 04:04:43* Test Item Value Reference Range Interpretation Comme nts ALBUMIN, URINE, RANDOM (test code = 93317) 0.9 MG/DL NOT ESTAB UNLESS OTHERWISE INDICATED, [facility] TESTING [facility] [address] [place] [address] MUD TEMPERER: JHONATAN YANEZ M.D. CLIA NUMBER [id number] [place]. [id number] LIPID [id number] 03:59:19* Test Item Value Reference Range Interpretation Comme nts CHOLESTEROL (test code = 2210) 148 MG/DL <200 TRIGLYCERIDES (test code = 2232) 106 MG/DL <150 HDL CHOLESTEROL (test code = 2220) 41 MG/DL >39 CALC LDL CHOL (test code = 2237) 87 MG/DL <100 NOTE: CALCULATED LDL IS BASED ON ROHAN-CHRISTIAN METHOD WHICHINCLUDES ADJUSTABLE TRIGLYCERIDE:VLDL CHOLESTEROL RATIO.THIS FACTOR VARIES BY MEASURED TRIGLYCERIDE AND NON-HDLCHOLESTEROL CONCENTRATIONS WITH INCREASED CALCULATED LDL SEENIN HIGHER TRIGLYCERIDE OR LOWER NON-HDL SPECIMENS. FOR MOREINFORMATION, SEE CLIENT ANNOUNCEMENT AT [email or web address] RISK RATIO LDL/HDL (test code = 2237) 2.12 RATIO <3.22 COMPREHENSIVE METABOLIC [id number] 03:59:19* Test Item Value Reference Range Interpretation Comme nts GLUCOSE (test code = 2216) 97 MG/DL 70-99 BUN (test code = 2207) 15 MG/DL 8-23 CREATININE (test code = 2213) 0.76 MG/DL 0.60-1.30 eGFR (2020 CKD-EPI) (test code = 76629) 86 ML/MIN/1.73 >60 CALC BUN/CREAT (test code = 2234) 20 RATIO 6-28 SODIUM (test code = 2230) 144 MEQ/L 133-146 POTASSIUM (test code = 2227) 3.9 MEQ/L 3.5-5.4 CHLORIDE (test code = 2214) 103 MEQ/L 95-107 CARBON DIOXIDE (test code = 2205) 27 MEQ/L 19-31 CALCIUM (test code = 2208) 10.5 MG/DL 8.5-10.5 PROTEIN, TOTAL (test code = 2228) 7.9 G/DL 6.1-8.3 ALBUMIN (test code = 2200) 4.3 G/DL 3.5-5.2 CALC GLOBULIN (test code = 0) 3.6 G/DL 1.9-3.7 CALC A/G RATIO (test code = 2233) 1.2 RATIO 1.0-2.6 BILIRUBIN, TOTAL (test code = 2206) 0.3 MG/DL See_Comment [Automated me ssage] The system which generated this result transmitted reference range: <=1.2. The reference range was not used to interpret this result as normal/abnormal. ALKALINE PHOSPHATASE (test code = 2203) 125 U/L 40-142 AST (test code = 2217) 13 U/L 9-40 ALT (test code = 2218) 11 U/L 5-40 HEMOGLOBIN A1c [ADDED]2022-01-11 00:00:00* Test Item Value Reference Range Interpretation Comme nts HEMOGLOBIN A1c (test code = 68421) 6.2 % LIPID PANEL [ADDED]2022-01-11 00:00:00* Test Item Value Reference Range Interpretation Comme nts CHOLESTEROL (test code = 2210) 148 MG/DL TRIGLYCERIDES (test code = 2232) 106 MG/DL HDL CHOLESTEROL (test code = 2220) 41 MG/DL CALC LDL CHOL (test code = 2237) 87 MG/DL RISK RATIO LDL/HDL (test cod e = 2238) 2.12 RATIO COMPREHENSIVE METABOLIC PANEL [ADDED]2022-01-11 00:00:00* Test Item Value Reference Range Interpretation Comme nts GLUCOSE (test code = 2217) 97 MG/DL BUN (test code = 2208) 15 MG/DL CREATININE (test code = 2214) 0.76 MG/DL eGFR (2020 CKD-EPI) (test co de = 23295) 86 ML/MIN/1.73 CALC BUN/CREAT (test code = 2235) 20 RATIO SODIUM (test code = 2231) 144 MEQ/L POTASSIUM (test code = 2228) 3.9 MEQ/L CHLORIDE (test code = 2215) 103 MEQ/L CARBON DIOXIDE (test code = 2206) 27 MEQ/L CALCIUM (test code = 2209) 10.5 MG/DL PROTEIN, TOTAL (test code = 2229) 7.9 G/DL ALBUMIN (test code = 2201) 4.3 G/DL CALC GLOBULIN (test code = 2240) 3.6 G/DL CALC A/G RATIO (test code = 2234) 1.2 RATIO BILIRUBIN, TOTAL (test code = 2207) 0.3 MG/DL ALKALINE PHOSPHATASE (test code = 2204) 125 U/L AST (test code = 2218) 13 U/L ALT (test code = 2219) 11 U/L ALBUMIN, URINE, RANDOM [ADDED]2022-01-11 00:00:00* Test Item Value Reference Range Interpretation Comme nts ALBUMIN, URINE, RANDOM (test code = 70106) 0.9 MG/DL HEMOGLOBIN A1c [ADDED]2022-01-11 00:00:00* Test Item Value Reference Range Interpretation Comme nts HEMOGLOBIN A1c (test code = 88629) 6.2 % LIPID PANEL [ADDED]2022-01-11 00:00:00* Test Item Value Reference Range Interpretation Comme nts CHOLESTEROL (test code = 2210) 148 MG/DL TRIGLYCERIDES (test code = 2232) 106 MG/DL HDL CHOLESTEROL (test code = 2220) 41 MG/DL CALC LDL CHOL (test code = 2237) 87 MG/DL RISK RATIO LDL/HDL (test cod e = 2238) 2.12 RATIO COMPREHENSIVE METABOLIC PANEL [ADDED]2022-01-11 00:00:00* Test Item Value Reference Range Interpretation Comme nts GLUCOSE (test code = 2217) 97 MG/DL BUN (test code = 2208) 15 MG/DL CREATININE (test code = 2214) 0.76 MG/DL eGFR (2020 CKD-EPI) (test co de = 64386) 86 ML/MIN/1.73 CALC BUN/CREAT (test code = 2235) 20 RATIO SODIUM (test code = 2231) 144 MEQ/L POTASSIUM (test code = 2228) 3.9 MEQ/L CHLORIDE (test code = 2215) 103 MEQ/L CARBON DIOXIDE (test code = 2206) 27 MEQ/L CALCIUM (test code = 2209) 10.5 MG/DL PROTEIN, TOTAL (test code = 2229) 7.9 G/DL ALBUMIN (test code = 2201) 4.3 G/DL CALC GLOBULIN (test code = 2240) 3.6 G/DL CALC A/G RATIO (test code = 2234) 1.2 RATIO BILIRUBIN, TOTAL (test code = 2207) 0.3 MG/DL ALKALINE PHOSPHATASE (test code = 2204) 125 U/L AST (test code = 2218) 13 U/L ALT (test code = 2219) 11 U/L ALBUMIN, URINE, RANDOM [ADDED]2022-01-11 00:00:00* Test Item Value Reference Range Interpretation Comme nts ALBUMIN, URINE, RANDOM (test code = 03466) 0.9 MG/DL CBC W/AUTO DIFF WITH [id number] 08:37:11* Test Item Value Reference Range Interpretation Comme nts WBC (test code = 1001) 12.3 K/UL 3.5-11.0 H RBC (test code = 1002) 5.27 M/UL 3.80-5.40 HEMOGLOBIN (test code = 1003) 13.4 G/DL 11.5-15.5 HEMATOCRIT (test code = 1004) 43.5 % 34.0-45.0 MCV (test code = 1005) 82.5 fL 80.0-99.0 MCH (test code = 1006) 25.4 PG 25.0-33.0 MCHC (test code = 1007) 30.8 G/DL 31.0-36.0 L RDW (test code = 1038) 13.7 % 11.5-15.0 NEUTROPHILS (test code = 1008) 66.4 % LYMPHOCYTES (test code = 1010) 24.2 % MONOCYTES (test code = 1011) 7.2 % EOSINOPHILS (test code = 1012) 1.4 % BASOPHILS (test code = 1013) 0.4 % IMMATURE GRANYLOCYTES (test code = 1036) 0.4 % NUCLEATED RBCS (test code = 1065) 0.0 /100 WBC'S See_Comment [Automated message] The system which generated this result transmitted reference range: 0.0. The reference range was not used to interpret this result as normal/abnormal. PLATELET COUNT (test code = 1015) 206 K/UL 130-400 ABSOLUTE NEUTROPHILS (test code = 1066) 8.15 K/UL 1.50-7.50 H ABSOLUTE LYMPHOCYTES (test code = 1067) 2.98 K/UL 1.00-4.00 ABSOLUTE MONOCYTES (test code = 1068) 0.89 K/UL 0.20-1.00 ABSOLUTE EOSINOPHILS (test code = 1040) 0.17 K/UL 0.00-0.50 ABSOLUTE BASOPHILS (test code = 1069) 0.05 K/UL 0.00-0.20 ABS IMMATURE GRANULOCYTES (test code = 1020) 0.05 K/UL 0.00-0.10 ABS NUCLEATED RBCS (test code = 97843) 0.00 K/UL 0.00-0.11 UNLESS OTHER HAYES INDICATED, ALL TESTING PERFORMED [facility] [address] [place] [address] MUD TEMPERER: JHONATAN YANEZ M.D. CLIA NUMBER [id number] [facility] [place] [place]. [id number] CBC W/AUTO [id number] 00:00:00* Test Item Value Reference Range Interpretation Comme nts WBC (test code = 1001) 12.3 K/UL RBC (test code = 1002) 5.27 M/UL HEMOGLOBIN (test code = 1003) 13.4 G/DL HEMATOCRIT (test code = 1004) 43.5 % MCV (test code = 1005) 82.5 fL MCH (test code = 1006) 25.4 PG MCHC (test code = 1007) 30.8 G/DL RDW (test code = 1038) 13.7 % NEUTROPHILS (test code = 1008) 66.4 % LYMPHOCYTES (test code = 1010) 24.2 % MONOCYTES (test code = 1011) 7.2 % EOSINOPHILS (test code = 1012) 1.4 % BASOPHILS (test code = 1013) 0.4 % IMMATURE GRANYLOCYTES (test code = 1036) 0.4 % NUCLEATED RBCS (test code = 1065) 0.0 /100WBC'S PLATELET COUNT (test code = 1015) 206 K/UL ABSOLUTE NEUTROPHILS (test c ode = 1066) 8.15 K/UL ABSOLUTE LYMPHOCYTES (test c ode = 1067) 2.98 K/UL ABSOLUTE MONOCYTES (test cod e = 1068) 0.89 K/UL ABSOLUTE EOSINOPHILS (test c ode = 1040) 0.17 K/UL ABSOLUTE BASOPHILS (test cod e = 1069) 0.05 K/UL ABS IMMATURE GRANULOCYTES (t est code = 1020) 0.05 K/UL ABS NUCLEATED RBCS (test cod e = 25384) 0.00 K/UL CBC W/AUTO [id number] 00:00:00* Test Item Value Reference Range Interpretation Comme nts WBC (test code = 1001) 12.3 K/UL RBC (test code = 1002) 5.27 M/UL HEMOGLOBIN (test code = 1003) 13.4 G/DL HEMATOCRIT (test code = 1004) 43.5 % MCV (test code = 1005) 82.5 fL MCH (test code = 1006) 25.4 PG MCHC (test code = 1007) 30.8 G/DL RDW (test code = 1038) 13.7 % NEUTROPHILS (test code = 1008) 66.4 % LYMPHOCYTES (test code = 1010) 24.2 % MONOCYTES (test code = 1011) 7.2 % EOSINOPHILS (test code = 1012) 1.4 % BASOPHILS (test code = 1013) 0.4 % IMMATURE GRANYLOCYTES (test code = 1036) 0.4 % NUCLEATED RBCS (test code = 1065) 0.0 /100WBC'S PLATELET COUNT (test code = 1015) 206 K/UL ABSOLUTE NEUTROPHILS (test c ode = 1066) 8.15 K/UL ABSOLUTE LYMPHOCYTES (test c ode = 1067) 2.98 K/UL ABSOLUTE MONOCYTES (test cod e = 1068) 0.89 K/UL ABSOLUTE EOSINOPHILS (test c ode = 1040) 0.17 K/UL ABSOLUTE BASOPHILS (test cod e = 1069) 0.05 K/UL ABS IMMATURE GRANULOCYTES (t est code = 1020) 0.05 K/UL ABS NUCLEATED RBCS (test cod e = 78307) 0.00 K/UL ALBUMIN, URINE, [id number] 05:57:21* Test Item Value Reference Range Interpretation Comme nts ALBUMIN, URINE, RANDOM (test code = 73491) 3.7 MG/DL Note: Test name is changed to Urine Albumin from Microalbumin in accordance with ADA and NKF Guidelines, and Albumin/Creatinine ratio reference interval reflects those Guidelines. Analytic methodology is unchanged. No reference interval for Random Urine Albumin is available. UNLESS OTHERWISE INDICATED, ALL TESTING PERFORMED [facility] [address] [place] [address] MUD TEMPERER: JHONATAN YANEZ M.D. CLIA NUMBER [id number] [facility] [place] [place]. [id number] HEMOGLOBIN [id number] 05:56:01* Test Item Value Reference Range Interpretation Comme nts HEMOGLOBIN A1c (test code = 09216) 7.4 % 4.2-5.6 H [employer] DI[employer] S ASSOCIATION GUIDELINES FOR HGB A1C: PREDIABETES/INCREASED RISK . . . . . . . 5.7-6.4% DIAGNOSIS OF DIABETES . . . . . . . . . >=6.5% WITH CONFIRMATION OR APPROPRIATE SYMPTOMS NOTE: ASSAY MAY BE AFFECTED BY HEMOGLOBINOPATHIES (SICKLE CELL ANEMIA, S-C DISEASE, OTHERS) OR ARTIFICIALLY LOWERED BY DECREASED RED CELL SURVIVAL (HEMOLYTIC ANEMIAS, BLOOD LOSS, ETC.). CONSIDER ALTERNATE TESTING OR LABORATORY CONSULTATION. CBC W/AUTO DIFF WITH [id number] 05:54:37* Test Item Value Reference Range Interpretation Comme nts WBC (test code = 1001) 14.3 K/UL 3.5-11.0 H RBC (test code = 1002) 5.07 M/UL 3.80-5.40 HEMOGLOBIN (test code = 1003) 13.1 G/DL 11.5-15.5 HEMATOCRIT (test code = 1004) 41.3 % 34.0-45.0 MCV (test code = 1005) 81.5 fL 80.0-99.0 MCH (test code = 1006) 25.8 PG 25.0-33.0 MCHC (test code = 1007) 31.7 G/DL 31.0-36.0 RDW (test code = 1038) 13.5 % 11.5-15.0 NEUTROPHILS (test code = 1008) 72.0 % LYMPHOCYTES (test code = 1010) 17.6 % MONOCYTES (test code = 1011) 7.8 % EOSINOPHILS (test code = 1012) 1.6 % BASOPHILS (test code = 1013) 0.4 % IMMATURE GRANYLOCYTES (test code = 1036) 0.6 % NUCLEATED RBCS (test code = 1065) 0.0 /100 WBC'S See_Comment [Automated [employer]] The system which generated this result transmitted reference range: 0.0. The reference range was not used to interpret this result as normal/abnormal. PLATELET COUNT (test code = 1015) 183 K/UL 130-400 ABSOLUTE NEUTROPHILS (test code = 1066) 10.31 K/UL 1.50-7.50 H ABSOLUTE LYMPHOCYTES (test code = 1067) 2.52 K/UL 1.00-4.00 ABSOLUTE MONOCYTES (test code = 1068) 1.11 K/UL 0.20-1.00 H ABSOLUTE EOSINOPHILS (test code = 1040) 0.23 K/UL 0.00-0.50 ABSOLUTE BASOPHILS (test code = 1069) 0.06 K/UL 0.00-0.20 ABS IMMATURE GRANULOCYTES (test code = 1020) 0.08 K/UL 0.00-0.10 ABS NUCLEATED RBCS (test code = 43792) 0.00 K/UL 0.00-0.11 LIPID [id number] 05:52:32* Test Item Value Reference Range Interpretation Comme nts CHOLESTEROL (test code = 2210) 146 MG/DL <200 TRIGLYCERIDES (test code = 2232) 134 MG/DL <150 HDL CHOLESTEROL (test code = 2220) 39 MG/DL >39 L CALC LDL CHOL (test code = 2237) 84 MG/DL <100 NOTE: CALCULATED LDL IS BASED ON ROHAN-CHRISTIAN METHOD WHICHINCLUDES ADJUSTABLE TRIGLYCERIDE:VLDL CHOLESTEROL RATIO.THIS FACTOR VARIES BY MEASURED TRIGLYCERIDE AND NON-HDLCHOLESTEROL CONCENTRATIONS WITH INCREASED CALCULATED LDL SEENIN HIGHER TRIGLYCERIDE OR LOWER NON-HDL SPECIMENS. FOR MOREINFORMATION, SEE CLIENT ANNOUNCEMENT AT [email or web address] RISK RATIO LDL/HDL (test code = 2238) 2.15 RATIO <3.22 COMPREHENSIVE METABOLIC [id number] 05:52:32* Test Item Value Reference Range Interpretation Comme nts GLUCOSE (test code = 2217) 121 MG/DL 70-99 H BUN (test code = 2208) 21 MG/DL 8-23 CREATININE (test code = 2214) 0.81 MG/DL 0.60-1.30 EFFECTIVE 03/20/2021, [facility] HAS IMPLEMENTED THE NKF-ASN RECOMMENDED KD-EPI EGFR REFIT CALCULATION THAT DOES NOT INCLUDE A COEFFICIENT FORRACE. FOR MORE INFORMATION, SEE ANNOUNCEMENT [email or web address] eGFR (2020 CKD-EPI) (test code = 02739) 81 ML/MIN/1.73 >60 CALC BUN/CREAT (test code = 2235) 26 RATIO 6-28 SODIUM (test code = 223) 142 MEQ/L 133-146 POTASSIUM (test code = 2228) 4.5 MEQ/L 3.5-5.4 CHLORIDE (test code = 2215) 99 MEQ/L 95-107 CARBON DIOXIDE (test code = 2206) 30 MEQ/L 19-31 CALCIUM (test code = 2209) 9.8 MG/DL 8.5-10.5 PROTEIN, TOTAL (test code = 2229) 7.2 G/DL 6.1-8.3 ALBUMIN (test code = 2201) 3.9 G/DL 3.5-5.2 CALC GLOBULIN (test code = 2240) 3.3 G/DL 1.9-3.7 CALC A/G RATIO (test code = 2234) 1.2 RATIO 1.0-2.6 BILIRUBIN, TOTAL (test code = 2207) 0.2 MG/DL See_Comment [Automated me ssage] The system which generated this result transmitted reference range: <=1.2. The reference range was not used to interpret this result as normal/abnormal. ALKALINE PHOSPHATASE (test code = 2204) 123 U/L 40-140 AST (test code = 2218) 14 U/L 9-40 ALT (test code = 2219) 9 U/L 5-40 CBC W/AUTO [id number] 00:00:00* Test Item Value Reference Range Interpretation Comme nts WBC (test code = 1001) 14.3 K/UL RBC (test code = 1002) 5.07 M/UL HEMOGLOBIN (test code = 1003) 13.1 G/DL HEMATOCRIT (test code = 1004) 41.3 % MCV (test code = 1005) 81.5 fL MCH (test code = 1006) 25.8 PG MCHC (test code = 1007) 31.7 G/DL RDW (test code = 1038) 13.5 % NEUTROPHILS (test code = 1008) 72.0 % LYMPHOCYTES (test code = 1010) 17.6 % MONOCYTES (test code = 1011) 7.8 % EOSINOPHILS (test code = 1012) 1.6 % BASOPHILS (test code = 1013) 0.4 % IMMATURE GRANYLOCYTES (test code = 1036) 0.6 % NUCLEATED RBCS (test code = 1065) 0.0 /100WBC'S PLATELET COUNT (test code = 1015) 183 K/UL ABSOLUTE NEUTROPHILS (test c ode = 1066) 10.31 K/UL ABSOLUTE LYMPHOCYTES (test c ode = 1067) 2.52 K/UL ABSOLUTE MONOCYTES (test cod e = 1068) 1.11 K/UL ABSOLUTE EOSINOPHILS (test c ode = 1040) 0.23 K/UL ABSOLUTE BASOPHILS (test cod e = 1069) 0.06 K/UL ABS IMMATURE GRANULOCYTES (t est code = 1020) 0.08 K/UL ABS NUCLEATED RBCS (test cod e = 08047) 0.00 K/UL HEMOGLOBIN [id number] 00:00:00* Test Item Value Reference Range Interpretation Comme nts HEMOGLOBIN A1c (test code = 78991) 7.4 % LIPID [id number] 00:00:00* Test Item Value Reference Range Interpretation Comme nts CHOLESTEROL (test code = 2210) 146 MG/DL TRIGLYCERIDES (test code = 2232) 134 MG/DL HDL CHOLESTEROL (test code = 2220) 39 MG/DL CALC LDL CHOL (test code = 2237) 84 MG/DL RISK RATIO LDL/HDL (test cod e = 2238) 2.15 RATIO COMPREHENSIVE METABOLIC [id number] 00:00:00* Test Item Value Reference Range Interpretation Comme nts GLUCOSE (test code = 2217) 121 MG/DL BUN (test code = 2208) 21 MG/DL CREATININE (test code = 2214) 0.81 MG/DL eGFR (2020 CKD-EPI) (test co de = 37827) 81 ML/MIN/1.73 CALC BUN/CREAT (test code = 2235) 26 RATIO SODIUM (test code = 2231) 142 MEQ/L POTASSIUM (test code = 2228) 4.5 MEQ/L CHLORIDE (test code = 2215) 99 MEQ/L CARBON DIOXIDE (test code = 2206) 30 MEQ/L CALCIUM (test code = 2209) 9.8 MG/DL PROTEIN, TOTAL (test code = 2229) 7.2 G/DL ALBUMIN (test code = 2201) 3.9 G/DL CALC GLOBULIN (test code = 2240) 3.3 G/DL CALC A/G RATIO (test code = 2234) 1.2 RATIO BILIRUBIN, TOTAL (test code = 2207) 0.2 MG/DL ALKALINE PHOSPHATASE (test code = 2204) 123 U/L AST (test code = 2218) 14 U/L ALT (test code = 2219) 9 U/L MICROALBUMIN, [id number] 00:00:00* Test Item Value Reference Range Interpretation Comme nts ALBUMIN, URINE, RANDOM (test code = 72254) 3.7 MG/DL CBC W/AUTO [id number] 00:00:00* Test Item Value Reference Range Interpretation Comme nts WBC (test code = 1001) 14.3 K/UL RBC (test code = 1002) 5.07 M/UL HEMOGLOBIN (test code = 1003) 13.1 G/DL HEMATOCRIT (test code = 1004) 41.3 % MCV (test code = 1005) 81.5 fL MCH (test code = 1006) 25.8 PG MCHC (test code = 1007) 31.7 G/DL RDW (test code = 1038) 13.5 % NEUTROPHILS (test code = 1008) 72.0 % LYMPHOCYTES (test code = 1010) 17.6 % MONOCYTES (test code = 1011) 7.8 % EOSINOPHILS (test code = 1012) 1.6 % BASOPHILS (test code = 1013) 0.4 % IMMATURE GRANYLOCYTES (test code = 1036) 0.6 % NUCLEATED RBCS (test code = 1065) 0.0 /100WBC'S PLATELET COUNT (test code = 1015) 183 K/UL ABSOLUTE NEUTROPHILS (test c ode = 1066) 10.31 K/UL ABSOLUTE LYMPHOCYTES (test c ode = 1067) 2.52 K/UL ABSOLUTE MONOCYTES (test cod e = 1068) 1.11 K/UL ABSOLUTE EOSINOPHILS (test c ode = 1040) 0.23 K/UL ABSOLUTE BASOPHILS (test cod e = 1069) 0.06 K/UL ABS IMMATURE GRANULOCYTES (t est code = 1020) 0.08 K/UL ABS NUCLEATED RBCS (test cod e = 87362) 0.00 K/UL HEMOGLOBIN [id number] 00:00:00* Test Item Value Reference Range Interpretation Comme nts HEMOGLOBIN A1c (test code = 29571) 7.4 % LIPID [id number] 00:00:00* Test Item Value Reference Range Interpretation Comme nts CHOLESTEROL (test code = 2210) 146 MG/DL TRIGLYCERIDES (test code = 2232) 134 MG/DL HDL CHOLESTEROL (test code = 2220) 39 MG/DL CALC LDL CHOL (test code = 2237) 84 MG/DL RISK RATIO LDL/HDL (test cod e = 2238) 2.15 RATIO COMPREHENSIVE METABOLIC [id number] 00:00:00* Test Item Value Reference Range Interpretation Comme nts GLUCOSE (test code = 2217) 121 MG/DL BUN (test code = 2208) 21 MG/DL CREATININE (test code = 2214) 0.81 MG/DL eGFR (2020 CKD-EPI) (test co de = 74983) 81 ML/MIN/1.73 CALC BUN/CREAT (test code = 2235) 26 RATIO SODIUM (test code = 2231) 142 MEQ/L POTASSIUM (test code = 2228) 4.5 MEQ/L CHLORIDE (test code = 2215) 99 MEQ/L CARBON DIOXIDE (test code = 2206) 30 MEQ/L CALCIUM (test code = 2209) 9.8 MG/DL PROTEIN, TOTAL (test code = 2229) 7.2 G/DL ALBUMIN (test code = 2201) 3.9 G/DL CALC GLOBULIN (test code = 2240) 3.3 G/DL CALC A/G RATIO (test code = 2234) 1.2 RATIO BILIRUBIN, TOTAL (test code = 2207) 0.2 MG/DL ALKALINE PHOSPHATASE (test code = 2204) 123 U/L AST (test code = 2218) 14 U/L ALT (test code = 2219) 9 U/L MICROALBUMIN, [id number] 00:00:00* Test Item Value Reference Range Interpretation Comme nts ALBUMIN, URINE, RANDOM (test code = 12043) 3.7 MG/DL URIC [id number] 00:00:00* Test Item Value Reference Range Interpretation Comme nts URIC ACID (test code = 2233) 4.9 MG/DL COMPREHENSIVE METABOLIC [id number] 00:00:00* Test Item Value Reference Range Interpretation Comme nts GLUCOSE (test code = 2217) 132 MG/DL BUN (test code = 2208) 19 MG/DL CREATININE (test code = 2214) 0.75 MG/DL eGFR AMER. (test cod e = 02822) 98 ML/MIN/1.73 eGFR NON- AMER. (test code = 88002) 84 ML/MIN/1.73 CALC BUN/CREAT (test code = 2235) 25 RATIO SODIUM (test code = 2231) 143 MEQ/L POTASSIUM (test code = 2228) 4.9 MEQ/L CHLORIDE (test code = 2215) 101 MEQ/L CARBON DIOXIDE (test code = 2206) 28 MEQ/L CALCIUM (test code = 2209) 10.0 MG/DL PROTEIN, TOTAL (test code = 2229) 7.6 G/DL ALBUMIN (test code = 2201) 4.1 G/DL CALC GLOBULIN (test code = 2240) 3.5 G/DL CALC A/G RATIO (test code = 2234) 1.2 RATIO BILIRUBIN, TOTAL (test code = 2207) 0.5 MG/DL ALKALINE PHOSPHATASE (test code = 2204) 105 U/L AST (test code = 2218) 10 U/L ALT (test code = 2219) 8 U/L CBC W/AUTO [id number] 00:00:00* Test Item Value Reference Range Interpretation Comme nts WBC (test code = 1001) 12.8 K/UL RBC (test code = 1002) 6.00 M/UL HEMOGLOBIN (test code = 1003) 15.4 G/DL HEMATOCRIT (test code = 1004) 50.0 % MCV (test code = 1005) 83.3 fL MCH (test code = 1006) 25.7 PG MCHC (test code = 1007) 30.8 G/DL RDW (test code = 1038) 15.7 % NEUTROPHILS (test code = 1008) 72.7 % LYMPHOCYTES (test code = 1010) 19.5 % MONOCYTES (test code = 1011) 6.4 % EOSINOPHILS (test code = 1012) 1.0 % BASOPHILS (test code = 1013) 0.4 % PLATELET COUNT (test code = 1015) 189 K/UL LIPID [id number] 00:00:00* Test Item Value Reference Range Interpretation Comme nts CHOLESTEROL (test code = 2210) 103 MG/DL TRIGLYCERIDES (test code = 2232) 68 MG/DL HDL CHOLESTEROL (test code = 2220) 44 MG/DL CALC LDL CHOL (test code = 2237) 45 MG/DL RISK RATIO LDL/HDL (test cod e = 2238) 1.02 RATIO HEMOGLOBIN A1c [ADDED][id number] 00:00:00* Test Item Value Reference Range Interpretation Comme nts HEMOGLOBIN A1c (test code = 92164) 6.5 % URIC [id number] 00:00:00* Test Item Value Reference Range Interpretation Comme nts URIC ACID (test code = 2233) 4.9 MG/DL COMPREHENSIVE METABOLIC [id number] 00:00:00* Test Item Value Reference Range Interpretation Comme nts GLUCOSE (test code = 2217) 132 MG/DL BUN (test code = 2208) 19 MG/DL CREATININE (test code = 2214) 0.75 MG/DL eGFR AMER. (test cod e = 52084) 98 ML/MIN/1.73 eGFR NON- AMER. (test code = 37628) 84 ML/MIN/1.73 CALC BUN/CREAT (test code = 2235) 25 RATIO SODIUM (test code = 2231) 143 MEQ/L POTASSIUM (test code = 2228) 4.9 MEQ/L CHLORIDE (test code = 2215) 101 MEQ/L CARBON DIOXIDE (test code = 2206) 28 MEQ/L CALCIUM (test code = 2209) 10.0 MG/DL PROTEIN, TOTAL (test code = 2229) 7.6 G/DL ALBUMIN (test code = 2201) 4.1 G/DL CALC GLOBULIN (test code = 2240) 3.5 G/DL CALC A/G RATIO (test code = 2234) 1.2 RATIO BILIRUBIN, TOTAL (test code = 2207) 0.5 MG/DL ALKALINE PHOSPHATASE (test code = 2204) 105 U/L AST (test code = 2218) 10 U/L ALT (test code = 2219) 8 U/L CBC W/AUTO [id number] 00:00:00* Test Item Value Reference Range Interpretation Comme nts WBC (test code = 1001) 12.8 K/UL RBC (test code = 1002) 6.00 M/UL HEMOGLOBIN (test code = 1003) 15.4 G/DL HEMATOCRIT (test code = 1004) 50.0 % MCV (test code = 1005) 83.3 fL MCH (test code = 1006) 25.7 PG MCHC (test code = 1007) 30.8 G/DL RDW (test code = 1038) 15.7 % NEUTROPHILS (test code = 1008) 72.7 % LYMPHOCYTES (test code = 1010) 19.5 % MONOCYTES (test code = 1011) 6.4 % EOSINOPHILS (test code = 1012) 1.0 % BASOPHILS (test code = 1013) 0.4 % PLATELET COUNT (test code = 1015) 189 K/UL LIPID [id number] 00:00:00* Test Item Value Reference Range Interpretation Comme nts CHOLESTEROL (test code = 2210) 103 MG/DL TRIGLYCERIDES (test code = 2232) 68 MG/DL HDL CHOLESTEROL (test code = 2220) 44 MG/DL CALC LDL CHOL (test code = 2237) 45 MG/DL RISK RATIO LDL/HDL (test cod e = 2238) 1.02 RATIO HEMOGLOBIN A1c [ADDED][id number] 00:00:00* Test Item Value Reference Range Interpretation Comme nts HEMOGLOBIN A1c (test code = 78458) 6.5 % COMPREHENSIVE METABOLIC [id number] 00:00:00* Test Item Value Reference Range Interpretation Comme nts GLUCOSE (test code = 221) 122 MG/DL BUN (test code = 2208) 14 MG/DL CREATININE (test code = 2214) 0.71 MG/DL eGFR AMER. (test cod e = 21396) 106 ML/MIN/1.73 eGFR NON- AMER. (test code = 58496) 91 ML/MIN/1.73 CALC BUN/CREAT (test code = 2235) 20 RATIO SODIUM (test code = 2231) 143 MEQ/L POTASSIUM (test code = 2228) 4.5 MEQ/L CHLORIDE (test code = 2215) 101 MEQ/L CARBON DIOXIDE (test code = 2206) 30 MEQ/L CALCIUM (test code = 2209) 9.9 MG/DL PROTEIN, TOTAL (test code = 222) 7.3 G/DL ALBUMIN (test code = 2201) 4.2 G/DL CALC GLOBULIN (test code = 2240) 3.1 G/DL CALC A/G RATIO (test code = 2234) 1.4 RATIO BILIRUBIN, TOTAL (test code = 2207) 0.3 MG/DL ALKALINE PHOSPHATASE (test code = 2204) 115 U/L AST (test code = 2218) 10 U/L ALT (test code = 2219) 11 U/L LIPID [id number] 00:00:00* Test Item Value Reference Range Interpretation Comme nts CHOLESTEROL (test code = 2210) 186 MG/DL TRIGLYCERIDES (test code = 2232) 92 MG/DL HDL CHOLESTEROL (test code = 2220) 47 MG/DL CALC LDL CHOL (test code = 223) 121 MG/DL RISK RATIO LDL/HDL (test cod e = 2238) 2.57 RATIO HEMOGLOBIN [id number] 00:00:00* Test Item Value Reference Range Interpretation Comme nts HEMOGLOBIN A1c (test code = 98598) 7.0 % URIC [id number] 00:00:00* Test Item Value Reference Range Interpretation Comme nts URIC ACID (test code = 2233) 5.2 MG/DL COMPREHENSIVE METABOLIC [id number] 00:00:00* Test Item Value Reference Range Interpretation Comme nts GLUCOSE (test code = 2216) 122 MG/DL BUN (test code = 2208) 14 MG/DL CREATININE (test code = 2214) 0.71 MG/DL eGFR AMER. (test cod e = 19848) 106 ML/MIN/1.73 eGFR NON- AMER. (test code = 09396) 91 ML/MIN/1.73 CALC BUN/CREAT (test code = 2235) 20 RATIO SODIUM (test code = 2231) 143 MEQ/L POTASSIUM (test code = 2228) 4.5 MEQ/L CHLORIDE (test code = 2215) 101 MEQ/L CARBON DIOXIDE (test code = 2206) 30 MEQ/L CALCIUM (test code = 2209) 9.9 MG/DL PROTEIN, TOTAL (test code = 2229) 7.3 G/DL ALBUMIN (test code = 2201) 4.2 G/DL CALC GLOBULIN (test code = 2240) 3.1 G/DL CALC A/G RATIO (test code = 2234) 1.4 RATIO BILIRUBIN, TOTAL (test code = 2207) 0.3 MG/DL ALKALINE PHOSPHATASE (test code = 2204) 115 U/L AST (test code = 2218) 10 U/L ALT (test code = 2219) 11 U/L LIPID [id number] 00:00:00* Test Item Value Reference Range Interpretation Comme nts CHOLESTEROL (test code = 2210) 186 MG/DL TRIGLYCERIDES (test code = 2232) 92 MG/DL HDL CHOLESTEROL (test code = 2220) 47 MG/DL CALC LDL CHOL (test code = 2237) 121 MG/DL RISK RATIO LDL/HDL (test cod e = 2238) 2.57 RATIO HEMOGLOBIN [id number] 00:00:00* Test Item Value Reference Range Interpretation Comme nts HEMOGLOBIN A1c (test code = 53181) 7.0 % URIC [id number] 00:00:00* Test Item Value Reference Range Interpretation Comme nts URIC ACID (test code = 2233) 5.2 MG/DL COMPREHENSIVE METABOLIC [id number] 00:00:00* Test Item Value Reference Range Interpretation Comme nts GLUCOSE (test code = 2217) 90 MG/DL BUN (test code = 2208) 16 MG/DL CREATININE (test code = 2214) 0.75 MG/DL eGFR AMER. (test cod e = 65681) 99 ML/MIN/1.73 eGFR NON- AMER. (test code = 61410) 85 ML/MIN/1.73 CALC BUN/CREAT (test code = 2235) 21 RATIO SODIUM (test code = 2231) 139 MEQ/L POTASSIUM (test code = 2228) 4.7 MEQ/L CHLORIDE (test code = 2215) 101 MEQ/L CARBON DIOXIDE (test code = 2206) 25 MEQ/L CALCIUM (test code = 2209) 10.4 MG/DL PROTEIN, TOTAL (test code = 2229) 7.7 G/DL ALBUMIN (test code = 2201) 4.4 G/DL CALC GLOBULIN (test code = 2240) 3.3 G/DL CALC A/G RATIO (test code = 2234) 1.3 RATIO BILIRUBIN, TOTAL (test code = 2207) 0.3 MG/DL ALKALINE PHOSPHATASE (test code = 2204) 114 U/L AST (test code = 2218) 12 U/L ALT (test code = 2219) 11 U/L HEMOGLOBIN [id number] 00:00:00* Test Item Value Reference Range Interpretation Comme [facility] HEMOGLOBIN A1c (test code = 76576) 6.5 % URIC [id number] 00:00:00* Test Item Value Reference Range Interpretation Comme nts URIC ACID (test code = 2233) 5.4 MG/DL COMPREHENSIVE METABOLIC [id number] 00:00:00* Test Item Value Reference Range Interpretation Comme nts GLUCOSE (test code = 2217) 90 MG/DL BUN (test code = 2208) 16 MG/DL CREATININE (test code = 2214) 0.75 MG/DL eGFR AMER. (test cod e = 08327) 99 ML/MIN/1.73 eGFR NON- AMER. (test code = 93213) 85 ML/MIN/1.73 CALC BUN/CREAT (test code = 2235) 21 RATIO SODIUM (test code = 2231) 139 MEQ/L POTASSIUM (test code = 2228) 4.7 MEQ/L CHLORIDE (test code = 2215) 101 MEQ/L CARBON DIOXIDE (test code = 2206) 25 MEQ/L CALCIUM (test code = 2209) 10.4 MG/DL PROTEIN, TOTAL (test code = 2229) 7.7 G/DL ALBUMIN (test code = 2201) 4.4 G/DL CALC GLOBULIN (test code = 2240) 3.3 G/DL CALC A/G RATIO (test code = 2234) 1.3 RATIO BILIRUBIN, TOTAL (test code = 2207) 0.3 MG/DL ALKALINE PHOSPHATASE (test code = 2204) 114 U/L AST (test code = 2218) 12 U/L ALT (test code = 2219) 11 U/L HEMOGLOBIN [id number] 00:00:00* Test Item Value Reference Range Interpretation Comme nts HEMOGLOBIN A1c (test code = 37974) 6.5 % URIC [id number] 00:00:00* Test Item Value Reference Range Interpretation Comme nts URIC ACID (test code = 2233) 5.4 MG/DL LIPID [id number] 00:00:00* Test Item Value Reference Range Interpretation Comme nts CHOLESTEROL (test code = 2210) 207 MG/DL TRIGLYCERIDES (test code = 2232) 94 MG/DL HDL CHOLESTEROL (test code = 2220) 47 MG/DL CALC LDL CHOL (test code = 2237) 141 MG/DL RISK RATIO LDL/HDL (test cod e = 2238) 3.00 RATIO HEMOGLOBIN [id number] 00:00:00* Test Item Value Reference Range Interpretation Comme nts HEMOGLOBIN A1c (test code = 25251) 6.0 % CBC W/AUTO [id number] 00:00:00* Test Item Value Reference Range Interpretation Comme nts WBC (test code = 1001) 12.2 K/UL RBC (test code = 1002) 4.40 M/UL HEMOGLOBIN (test code = 1003) 11.3 G/DL HEMATOCRIT (test code = 1004) 36.1 % MCV (test code = 1005) 82.0 fL MCH (test code = 1006) 25.7 PG MCHC (test code = 1007) 31.3 G/DL RDW (test code = 1038) 13.6 % NEUTROPHILS (test code = 1008) 72.3 % LYMPHOCYTES (test code = 1010) 19.6 % MONOCYTES (test code = 1011) 6.3 % EOSINOPHILS (test code = 1012) 1.4 % BASOPHILS (test code = 1013) 0.4 % PLATELET COUNT (test code = 1015) 211 K/UL COMPREHENSIVE METABOLIC [id number] 00:00:00* Test Item Value Reference Range Interpretation Comme nts GLUCOSE (test code = 2217) 92 MG/DL BUN (test code = 2208) 19 MG/DL CREATININE (test code = 2214) 0.68 MG/DL eGFR AMER. (test cod e = 95271) 109 ML/MIN/1.73 eGFR NON- AMER. (test code = 96485) 94 ML/MIN/1.73 CALC BUN/CREAT (test code = 2235) 28 RATIO SODIUM (test code = 2231) 141 MEQ/L POTASSIUM (test code = 2228) 4.5 MEQ/L CHLORIDE (test code = 2215) 100 MEQ/L CARBON DIOXIDE (test code = 2206) 27 MEQ/L CALCIUM (test code = 2209) 10.1 MG/DL PROTEIN, TOTAL (test code = 2229) 7.6 G/DL ALBUMIN (test code = 2201) 4.1 G/DL CALC GLOBULIN (test code = 2240) 3.5 G/DL CALC A/G RATIO (test code = 2234) 1.2 RATIO BILIRUBIN, TOTAL (test code = 2207) 0.3 MG/DL ALKALINE PHOSPHATASE (test code = 2204) 101 U/L AST (test code = 2218) 12 U/L ALT (test code = 2219) 11 U/L URIC [id number] 00:00:00* Test Item Value Reference Range Interpretation Comme nts URIC ACID (test code = 2233) 7.3 MG/DL LIPID [id number] 00:00:00* Test Item Value Reference Range Interpretation Comme nts CHOLESTEROL (test code = 2210) 207 MG/DL TRIGLYCERIDES (test code = 2232) 94 MG/DL HDL CHOLESTEROL (test code = 2220) 47 MG/DL CALC LDL CHOL (test code = 2237) 141 MG/DL RISK RATIO LDL/HDL (test cod e = 2238) 3.00 RATIO HEMOGLOBIN [id number] 00:00:00* Test Item Value Reference Range Interpretation Comme nts HEMOGLOBIN A1c (test code = 56770) 6.0 % CBC W/AUTO [id number] 00:00:00* Test Item Value Reference Range Interpretation Comme nts WBC (test code = 1001) 12.2 K/UL RBC (test code = 1002) 4.40 M/UL HEMOGLOBIN (test code = 1003) 11.3 G/DL HEMATOCRIT (test code = 1004) 36.1 % MCV (test code = 1005) 82.0 fL MCH (test code = 1006) 25.7 PG MCHC (test code = 1007) 31.3 G/DL RDW (test code = 1038) 13.6 % NEUTROPHILS (test code = 1008) 72.3 % LYMPHOCYTES (test code = 1010) 19.6 % MONOCYTES (test code = 1011) 6.3 % EOSINOPHILS (test code = 1012) 1.4 % BASOPHILS (test code = 1013) 0.4 % PLATELET COUNT (test code = 1015) 211 K/UL COMPREHENSIVE METABOLIC [id number] 00:00:00* Test Item Value Reference Range Interpretation Comme nts GLUCOSE (test code = 2217) 92 MG/DL BUN (test code = 2208) 19 MG/DL CREATININE (test code = 2214) 0.68 MG/DL eGFR AMER. (test cod e = 72805) 109 ML/MIN/1.73 eGFR NON- AMER. (test code = 73200) 94 ML/MIN/1.73 CALC BUN/CREAT (test code = 2235) 28 RATIO SODIUM (test code = 2231) 141 MEQ/L POTASSIUM (test code = 2228) 4.5 MEQ/L CHLORIDE (test code = 2215) 100 MEQ/L CARBON DIOXIDE (test code = 2206) 27 MEQ/L CALCIUM (test code = 2209) 10.1 MG/DL PROTEIN, TOTAL (test code = 2229) 7.6 G/DL ALBUMIN (test code = 2201) 4.1 G/DL CALC GLOBULIN (test code = 2240) 3.5 G/DL CALC A/G RATIO (test code = 2234) 1.2 RATIO BILIRUBIN, TOTAL (test code = 2207) 0.3 MG/DL ALKALINE PHOSPHATASE (test code = 2204) 101 U/L AST (test code = 2218) 12 U/L ALT (test code = 2219) 11 U/L URIC [id number] 00:00:00* Test Item Value Reference Range Interpretation Comme nts URIC ACID (test code = 2233) 7.3 MG/DL
[2024-04-26] MEDS ORDERED: NA CHLORIDE 0.9% 500 ML ONE (09:07)
[2024-04-26] MEDS ORDERED: MORPHINE 4 MG/ML SYR ONE (09:10)
[2024-04-26] MEDS ORDERED: ONDANSETRON 4 MG/2 ML VIAL ONE (09:10)
[2024-04-26 09:38] LABS: Absolute Basophils 0.1 K/uL (0-0.5); Absolute Eosinophils 0.3 K/uL (0-0.5); Absolute Monocytes 1.1 K/uL (0.1-1.3); Absolute Neutrophil 11.2 K/uL (1.8-8.0); Basophils % 0.5 % (0-1.3); Eosinophils % 1.9 % (0-4.4); Hematocrit 20.7 % (36.0-45.0); Hemoglobin 6.4 g/dL (12.0-15.0); Lymphocytes % 19.2 % (15.3-44.8); MCH 27.9 pg (27.0-35.0); MPV 8.6 fL (7.6-11.3); Monocytes % 7.3 % (3.3-12.3); Neutrophils % 71.1 % (41.7-73.7); Nucleated RBC Absolute Count 0.3 (0-0); Nucleated Red Blood Cells % 1.8 % (0-0); Platelets 260 thou/uL (152-406); Red Cell Distribution Width 15.4 % (12.1-15.2)
[2024-04-26 09:48] LABS: Specific Gravity 1.009 (1.005-1.030); Sqamous Epithelial <5 /HPF (None Seen); Transitional Epithelial <5 /HPF (None Seen); Urine Bacteria 20-50 /HPF (<20); Urine Bilirubin NEGATIVE (Negative); Urine Blood Negative (Negative); Urine Clarity Turbid (Clear); Urine Color Colorless (Yellow); Urine Culture Reflex Order NOT NEEDED; Urine Glucose NEGATIVE (Negative); Urine Ketones NEGATIVE (Negative); Urine Microscopic Reflex YN ORDER UMIC; Urine Mucus Slight /HPF (None Seen); Urine Nitrite NEGATIVE (Negative); Urine Protein NEGATIVE (Negative); Urine RBC <5 /HPF (None Seen); Urine Urobilinogen Normal (Normal); Urine WBC <5 /HPF (<5)
[2024-04-26 09:53] LABS: Albumin 3.3 g/dL (3.4-5.0); Anion Gap 8.8 mEq/L (5.0-15.0); Bilirubin Total 0.3 mg/dL (0.2-1.0); Globulin 3.4 g/dL (2.3-3.5); Potassium 3.8 mEq/L (3.5-5.1); Protein, Total 6.7 g/dL (6.4-8.2)
[2024-04-26 10:08] LABS: Blood Morphology Comment NOT SEEN (NOT SEEN); Differential Total Cells Count 100; Eosinophils 2 % (0-3); Lymphocytes 18 % (15-42); Monocytes 8 % (0-10); Nucleated Red Blood Cells 2 /100WBC; Platelet Estimate ADEQ; Segmented Neutrophils 72 % (40-80)
--- NOTE | 2024-04-26 10:30 | ER ---
Nurse's Notes [facility] Name: Hellen Allen Age: 68 yrs Sex: Female : 1955 Arrival Date: 04/26/2024 Time: 08:49 Bed 7 Private MD: Diagnosis: GI Bleed/ Gastrointestinal hemorrhage, unspecified-UPPER;Acute posthemorrhagic anemia;Anemia, unspecified;Weakness;Obesity due to excess calories Presentation: 04/26 08:52 Chief complaint: EMS states: toned out for lower right sided back pain. Coronavirus ld1 screen: At this time, the client does not indicate any symptoms associated with coronavirus-19. Ebola Screen: No symptoms or risks identified at this time. Initial Sepsis Screen: Does the patient meet any 2 criteria? No. Patient's initial sepsis screen is negative. Does the patient have a suspected source of infection? No. Patient's initial sepsis screen is negative. Risk Assessment: Do you want to hurt yourself or someone else? Patient reports no desire to harm self or others. Onset of symptoms was April 26, 2024. 08:52 Method Of Arrival: [facility] ld1 08:52 Acuity: REYNA 4 ld1 Triage Assessment: 08:54 General: Appears in no apparent distress. uncomfortable, Behavior is calm, cooperative, ld1 appropriate for age. Pain: Complains of pain in right low back Pain does not radiate. Pain currently is 6 out of 10 on a pain scale. Quality of pain is described as throbbing, Pain began suddenly, Is continuous. EENT: No signs and/or symptoms were reported regarding the EENT system. Neuro: Level of Consciousness is awake, alert, obeys commands, Oriented to person, place, time, situation. Cardiovascular: Capillary refill < 3 seconds Patient's skin is warm and dry. Respiratory: Airway is patent Respiratory effort is even, unlabored. GI: Abdomen is round non-distended. : No signs and/or symptoms were reported regarding the genitourinary system. Derm: No signs and/or symptoms reported regarding the dermatologic system. Musculoskeletal: Range of motion: intact in all extremities. Historical: - Allergies: 08:53 PENICILLINS; ld1 - PMHx: 08:53 ARTHRITIS MARY LEG; Enlarged Heart; Gout; Hypertension; ld1 08:54 Congestive heart failure; ld1 - PSHx: 08:53 None; ld1 - Immunization history:: Adult Immunizations up to date. - Infectious Disease History:: Denies. - Social history:: Smoking status: Patient denies any tobacco usage or history of. Screenin:55 [facility] ED Fall Risk Assessment (Adult) History of falling in the last 3 months, ld1 including since admission No falls in past 3 months (0 pts) Confusion or Disorientation No (0 pts) Intoxicated or Sedated No (0 pts) Impaired Gait No (0 pts) Mobility Assist Device Used No (0 pt) Altered Elimination No (0 pt) Score/Fall Risk Level 0 - 2 = Low Risk Oriented to surroundings, Maintained a safe environment, Educated pt \T\ family on fall prevention, incl call for assistance when getting out of bed, Assessed \T\ reinforced patient's understanding of fall precautions, Provided non-skid footwear, Hourly rounding (assess needs \T\ fall precautionary measures) done, Used ambulatory aids as needed (educated on \T\ assisted with), Used gait belt as appropriate. Abuse screen: Denies threats or abuse. Denies injuries from another. Nutritional screening: No deficits noted. Tuberculosis screening: No symptoms or risk factors identified. Assessment: 08:55 Reassessment: See triage assessment. Neuro: Level of Consciousness is awake, alert, ld1 obeys commands, Oriented to person, place, time, situation. 09:55 Reassessment: Patient appears in no apparent distress at this time. No changes from ld1 previously documented assessment. Patient and/or family updated on plan of care and expected duration. Pain level reassessed. 10:20 Reassessment: Patient appears in no apparent distress at this time. No changes from ld1 previously documented assessment. Patient and/or family updated on plan of care and expected duration. Pain level reassessed. Patient denies pain at this time. 11:50 Reassessment: Patient appears in no apparent distress at this time. No changes from ld1 previously documented assessment. 12:35 Reassessment: PRBC transfusion - 1st unit infusing. ld1 12:50 Reassessment: See paper charting for VS - transfusion flowsheet. ld1 Vital Signs: 08:52 Pulse 65; Resp 18; Temp 98.1(TE); Pulse Ox 96% on R/A; Weight 127 kg; Height 5 ft. 5 ld1 in. ; Pain 6/10; 08:52 BP 106 / 44; ld1 09:31 BP 151 / 110; Pulse 58; Resp 18; Pulse Ox 99% on R/A; Pain 7/10; ld1 10:25 BP 103 / 50; Pulse 71; Resp 18; Pulse Ox 96% on R/A; ld1 12:30 BP 105 / 55; Pulse 61; Resp 18; Pulse Ox 99% on R/A; ld1 08:52 Body Mass Index 46.59 (127.00 kg, 165.1 cm) ld1 08:52 Pain Scale: Adult ld1 09:31 Pain Scale: Adult ld1 ED Course: 08:52 Patient arrived in ED. ld1 08:53 Triage completed. ld1 08:54 Luis Witt MD is Attending Physician. [facility] 08:54 Arm band placed on right wrist. ld1 08:55 Patient has correct armband on for positive identification. Placed in gown. Bed in low ld1 position. Call light in reach. Side rails up X2. power line installer and repairer on. Pulse ox on. NIBP on. Door closed. Noise minimized. Warm blanket given. 08:55 No provider procedures requiring assistance completed. ld1 09:30 Marah Braun, AASHISH is Primary Nurse. ld1 09:30 Urinalysis w/ reflexes Sent. ld1 09:31 CBC with Diff Sent. ld1 09:31 CMP Sent. ld1 09:31 Lipase Sent. ld1 09:31 Missed attempt(s): 20 gauge in right forearm. ld1 09:31 Inserted saline lock: 22 gauge in right forearm, using aseptic technique. Blood ld1 collected. Flushed with 10 mL NS. 10:05 BNP Sent. ld1 10:05 Troponin High Sensitivity Sent. ld1 10:05 Type And Screen Sent. ld1 10:22 initiated a transfer with Anne-Marie from the [facility] Transfer [place]/. eb 10:[address] Bustos the hospitalist production designer for [facility] with Dr. Witt for eb patient transfer consultation. 10:41 initiated a transfer with Patito from the [facility] at the eb request of the patients family. 10:52 per Patito [facility] will have to decline the patient in transfer due to being at eb capacity. 10:55 administrative approval given by Anne-Marie Troncoso Rn/ patient has been accepted to [facility] room 1215/ Dr. Donte Bustos has accepted the patient in transfer/ report to be called to [phone]. 11:20 CT Abd/Pelvis - IV Contrast Only In Process Unspecified. EDMS 11:42 Chest Single View XRAY In Process Unspecified. EDMS 12:07 Inserted saline lock: 22 gauge in right wrist, using aseptic technique. Flushed with 10 cm10 mL NS. 13:13 Patient transferred, IV remains in place. ld1 Administered Medications: 09:30 Drug: Ondansetron IVP 4 mg IVP once; over 2 minutes Route: IVP; Site: right forearm; ld1 10:05 Follow up: Response: No adverse reaction ld1 09:30 Drug: morphine IVP or IV 4 mg IVP once over 4 mins Route: IVP; Infused Over: 4 mins; ld1 Site: right forearm; 10:05 Follow up: Response: No adverse reaction ld1 09:30 Drug: NS 0.9% IV 500 ml 500 ml IV at 1 bolus once; to be given as a bolus over 30 ld1 minutes Volume: 500 ml; Route: IV; Rate: 1 bolus; Site: right forearm; 12:06 Drug: Pantoprazole IVP 40 mg IVP once Route: IVP; Site: right wrist; cm10 12:53 Follow up: Response: No adverse reaction ld1 12:06 Drug: Pantoprazole IVP 40 mg IVP once Route: IVP; Site: right wrist; cm10 12:53 Follow up: Response: No adverse reaction ld1 12:06 Drug: Pantoprazole IV 8 mg/hr IV at 25 ml/hr continuous; (Standard dilution is 80 mg in cm10 250 mL NS) Route: IV; Rate: 25 ml/hr; Site: right wrist; 12:53 Follow up: Response: No adverse reaction; IV Status: Infusion continued; IV Intake: ld1 250ml Medication: 08:55 VIS not applicable for this client. ld1 Intake: 12:53 IV: 250ml; Total: 250ml. ld1 Outcome: 10:30 ER care complete, transfer ordered by MD. long 13:13 Patient left the ED. ld1 13:13 Transferred by ground EMS ld1 13:13 Condition: stable 13:13 Instructed on the need for transfer, Signatures: Dispatcher [employer] Luis Michele MD MD cha Botello, Elizabeth eb Sims, Lauren RN RN ld1 Katina Moreau RN RN cm10
--- NOTE | 2024-04-26 10:30 | EDPHYS ---
Physician Documentation [facility] Name: Hellen Allen Age: 68 yrs Sex: Female : 1955 Arrival Date: 04/26/2024 Time: 08:49 Bed 7 Private MD: ED Physician Luis Witt HPI: 04/26 10:22 This 68 yrs old Black Female presents to ER via EMS with complaints of Back Pain. mercedes 10:22 The patient presents with pain that is acute, with no known mechanism of injury. The mercedes symptoms are located in the low back, right mid back and right low back. Onset: The symptoms/episode began/occurred 3 day(s) ago. The pain does not radiate. Associated signs and symptoms: The patient has no apparent associated signs or symptoms. The problem was sustained from unknown cause. Modifying factors: The patient symptoms are alleviated by nothing, the patient symptoms are aggravated by any movement. Severity of symptoms: At their worst the symptoms were moderate, in the emergency department the symptoms are unchanged. The patient has not experienced similar symptoms in the past. Historical: - Allergies: 08:53 PENICILLINS; ld1 - PMHx: 08:53 ARTHRITIS MARY LEG; Enlarged Heart; Gout; Hypertension; ld1 08:54 Congestive heart failure; ld1 - PSHx: 08:53 None; ld1 - Immunization history:: Adult Immunizations up to date. - Infectious Disease History:: Denies. - Social history:: Smoking status: Patient denies any tobacco usage or history of. ROS: 10:22 Constitutional: Negative for fever, chills, and weight loss, Eyes: Negative for injury, mercedes pain, redness, and discharge, ENT: Negative for injury, pain, and discharge, Neck: Negative for injury, pain, and swelling, Cardiovascular: Negative for chest pain, palpitations, and edema, Respiratory: Negative for shortness of breath, cough, wheezing, and pleuritic chest pain, : Negative for injury, bleeding, discharge, and swelling, MS/Extremity: Negative for injury and deformity, Neuro: Negative for headache, weakness, numbness, tingling, and seizure, Psych: Negative for depression, anxiety, suicide ideation, homicidal ideation, and hallucinations, Allergy/Immunology: Negative for hives, rash, and allergies, Endocrine: Negative for neck swelling, polydipsia, polyuria, polyphagia, and marked weight changes, Hematologic/Lymphatic: Negative for swollen nodes, abnormal bleeding, and unusual bruising, 10:22 Abdomen/GI: Positive for abdominal pain, nausea and vomiting, abdominal cramps, of the right upper quadrant and right lower quadrant, 10:22 Back: Positive for flank pain, on the right, Exam: 10:22 Constitutional: This is a well developed, well nourished patient who is awake, alert, mercedes and in no acute distress. Head/Face: Normocephalic, atraumatic. Eyes: Pupils equal round and reactive to light, extra-ocular motions intact. Lids and lashes normal. Conjunctiva and sclera are non-icteric and not injected. Cornea within normal limits. Periorbital areas with no swelling, redness, or edema. ENT: Nares patent. No nasal discharge, no septal abnormalities noted. Tympanic membranes are normal and external auditory canals are clear. Oropharynx with no redness, swelling, or masses, exudates, or evidence of obstruction, uvula midline. Mucous membranes moist. Neck: Trachea midline, no thyromegaly or masses palpated, and no cervical lymphadenopathy. Supple, full range of motion without nuchal rigidity, or vertebral point tenderness. No Meningismus. Chest/axilla: Normal chest wall appearance and motion. Nontender with no deformity. No lesions are appreciated. Cardiovascular: Regular rate and rhythm with a normal S1 and S2. No gallops, murmurs, or rubs. Normal PMI, no JVD. No pulse deficits. Respiratory: Lungs have equal breath sounds bilaterally, clear to auscultation and percussion. No rales, rhonchi or wheezes noted. No increased work of breathing, no retractions or nasal flaring. Female : Normal external genitalia. MS/ Extremity: Pulses equal, no cyanosis. Neurovascular intact. Full, normal range of motion., bilateral aka Neuro: Awake and alert, GCS 15, oriented to person, place, time, and situation. Cranial nerves II-XII grossly intact. Motor strength 5/5 in all extremities. Sensory grossly intact. Cerebellar exam normal. Normal gait. Psych: Awake, alert, with orientation to person, place and time. Behavior, mood, and affect are within normal limits. 10:22 ECG was reviewed by the Attending Physician. 10:22 Abdomen/GI: Inspection: abdomen appears normal, Bowel sounds: normal, Palpation: abdomen is soft and non-tender, Liver: no appreciated palpable abnormalities, Hernia: not appreciated, 10:22 Abdomen/GI: Rectal exam: rectal tone normal, Stool: guaiac positive, black, hemorrhoid(s), are not appreciated, mass, is not appreciated, swelling, is not appreciated, tenderness, is not appreciated, Vital Signs: 08:52 Pulse 65; Resp 18; Temp 98.1(TE); Pulse Ox 96% on R/A; Weight 127 kg; Height 5 ft. 5 ld1 in. ; Pain 6/10; 08:52 BP 106 / 44; ld1 09:31 BP 151 / 110; Pulse 58; Resp 18; Pulse Ox 99% on R/A; Pain 7/10; ld1 10:25 BP 103 / 50; Pulse 71; Resp 18; Pulse Ox 96% on R/A; ld1 12:30 BP 105 / 55; Pulse 61; Resp 18; Pulse Ox 99% on R/A; ld1 08:52 Body Mass Index 46.59 (127.00 kg, 165.1 cm) ld1 08:52 Pain Scale: Adult ld1 09:31 Pain Scale: Adult ld1 MDM: 08:56 Medical Screening Exam initiated mercedes 10:26 Data reviewed: vital signs, nurses notes, lab test result(s), EKG, radiologic studies, [facility] CT scan, plain films. Consideration of Admission/Observation Escalation of care including admission/observation considered. I considered the following discharge prescriptions or medication management in the emergency department Medications were administered in the Emergency Department. See MAR. Independent interpretation of the following test(s) in the Emergency Department EKG: See my EKG interpretation above. Test considered but Not performed: Ultrasound ABD PAIN. Historians other than the Patient: Family Member: DAUGHTER WELL INFORMED. Care significantly affected by the following chronic conditions: Hypertension, Congestive Heart Failure, Obesity. Counseling: I had a detailed discussion with the patient and/or guardian regarding the historical points, exam findings, and any diagnostic results supporting the discharge/admit diagnosis, lab results, radiology results, the need for further work-up and treatment in the hospital. 04/26 08:56 Order name: CBC with Diff; Complete Time: 10: [facility] 04/26 08:56 Order name: CMP; Complete Time: 10: [facility] 04/26 08:56 Order name: Lipase; Complete Time: 10:21 [facility] 04/26 08:56 Order name: Urinalysis w/ reflexes; Complete Time: 10:21 [facility] 04/26 09:49 Order name: Type And Screen [facility] 04/26 10:08 Order name: Manual Differential; Complete Time: 10:21 EDMS 04/26 10:33 Order name: Packed RBC Leukored EDMS 04/26 10:48 Order name: ABO/RH no charge; Complete Time: 12:50 EDME 04/26 12:23 Order name: Bb Add On eb 04/26 08:56 Order name: CT Abd/Pelvis - IV Contrast Only; Complete Time: 12:50 [facility] 04/26 09:49 Order name: Chest Single View XRAY; Complete Time: 12:50 [facility] 04/26 08:56 Order name: IV Saline Lock; Complete Time: 09:30 [facility] 04/26 08:56 Order name: Labs collected and sent; Complete Time: 09:30 [facility] 04/26 09:49 Order name: IV Saline Lock - Large Bore; Complete Time: 09:50 [facility] 04/26 10:21 Order name: Transfuse; Complete Time: 12:53 [facility] Administered Medications: 09:30 Drug: Ondansetron IVP 4 mg IVP once; over 2 minutes Route: IVP; Site: right forearm; ld1 10:05 Follow up: Response: No adverse reaction ld1 09:30 Drug: morphine IVP or IV 4 mg IVP once over 4 mins Route: IVP; Infused Over: 4 mins; ld1 Site: right forearm; 10:05 Follow up: Response: No adverse reaction ld1 09:30 Drug: NS 0.9% IV 500 ml 500 ml IV at 1 bolus once; to be given as a bolus over 30 ld1 minutes Volume: 500 ml; Route: IV; Rate: 1 bolus; Site: right forearm; 12:06 Drug: Pantoprazole IVP 40 mg IVP once Route: IVP; Site: right wrist; cm10 12:53 Follow up: Response: No adverse reaction ld1 12:06 Drug: Pantoprazole IVP 40 mg IVP once Route: IVP; Site: right wrist; cm10 12:53 Follow up: Response: No adverse reaction ld1 12:06 Drug: Pantoprazole IV 8 mg/hr IV at 25 ml/hr continuous; (Standard dilution is 80 mg in cm10 250 mL NS) Route: IV; Rate: 25 ml/hr; Site: right wrist; 12:53 Follow up: Response: No adverse reaction; IV Status: Infusion continued; IV Intake: ld1 250ml Disposition Summary: 04/26/24 10:30 Transfer Ordered Notes: Transfer Location: [facility] mercedes Reason: Higher level of care mercedes Condition: Fair mercedes Problem: new mercedes Symptoms: have improved mercedes Accepting Physician: TO [facility](04/26/24 13:13) ld1 Diagnosis - GI Bleed/ Gastrointestinal hemorrhage, unspecified - UPPER mercedes - Acute posthemorrhagic anemia mercedes - Anemia, unspecified mercedes - Weakness mercedes - Obesity due to excess calories mercedes Forms: - Medication Reconciliation Form mercedes - SBAR form mercedes Signatures: Dispatcher [employer] EDMS Luis Witt MD MD cha Sims, Lauren, RN RN ld1 Katina Moreau RN RN cm10 Corrections: (The following items were deleted from the chart) 09:49 09:49 TYPE AND SCREEN+BB.LAB.BRZ ordered. EDMS EDMS 09:49 09:49 Troponin High Sensitivity+C.LAB.BRZ ordered. EDMS EDMS 09:49 09:49 PROBNP+C.LAB.BRZ ordered. EDMS EDMS 09:49 09:49 Chest Single View+RAD.RAD.BRZ ordered. EDMS EDMS 10:33 10:21 PACKED RBC LEUKORED+BB.LAB.BRZ ordered. EDMS EDMS 10:33 10:23 ABO/RH typing ordered. EDMS EDMS 10:33 10:23 Antibody Screen ordered. EDMS EDMS 13:13 10:30 TO [facility] mercedes ld1
[2024-04-26] MEDS ORDERED: PANTOPRAZOLE 40 MG INJ ONE (11:28)
[2024-04-26] MEDS ORDERED: NA CHLORIDE 0.9% 250 ML ONE ×3 (11:29→12:26)
--- NOTE | 2024-04-26 12:47 | RAD REPORT ---
EXAMINATION: CT Abdomen Pelvis W Contrast CLINICAL INDICATION: Female, 68 years old. ABD PAIN TECHNIQUE: CT abdomen and pelvis was performed, after the administration of IV contrast, [facility]. Axial, sagittal and coronal reconstructions were obtained. One or more of the following dose reduction techniques were used: Automated exposure control, adjustment of the mA and k V according to patient size, and iterative reconstruction. Unless otherwise specified, incidental findings do not require dedicated imaging follow-up. COMPARISON: No prior exam. FINDINGS: LOWER CHEST: The visualized lung bases are clear. LIVER: Normal in size and contour. 11 mm hepatic dome subcapsular ovoid hypoattenuating lesion, not w ell characterized. No other suspicious focal lesion. BILIARY SYSTEM: No suspicious abnormalities. SPLEEN: Normal size. No focal lesion. PANCREAS: No mass, ductal dilation, or nael-pancreatic fluid. ADRENALS: Normal; no mass. KIDNEYS: Multifocal cortical thinning on the right, suggesting areas of scarring. No radiopaque calcu li or hydronephrosis. URINARY BLADDER: Unremarkable. GASTROINTESTINAL TRACT: No evidence of free air, significant intra-abdominal free fluid, bowel obstru ction or abscess. APPENDIX: Normal appendix. LYMPH NODES: No lymphadenopathy. MUSCULOSKELETAL: No acute or suspicious osseous abnormality. ADDITIONAL FINDINGS: Tortuosity of the abdominal aorta. Fusiform ectasia of the common iliac arteries , measuring 2.1 cm on the left and 1.9 cm on the right. IMPRESSION: No acute abnormalities seen in the abdomen or pelvis. Incidental findings including an 11 mm hepatic dome hypoattenuating focus, not well characterized, mo st suggestive of a benign lesion such as a cyst or hemangioma. Out of an abundance of caution, follow-up ultrasound or CT in 6 months would be helpful to reevaluate the finding.
--- NOTE | 2024-04-26 12:48 | RAD REPORT ---
EXAMINATION: ONE VIEW CHEST XR CLINICAL INDICATION: Female, 68 years old.,COUGH TECHNIQUE: Frontal chest projection is submitted. Examination is limited by patient positioning and t echnique. COMPARISON: 06/30/2018 FINDINGS: Improvement of patchy bibasilar airspace opacities since prior exam, allowing for some underexposure which limits evaluation. No new focal airspace opacities. No pneumothorax or sizable effusion. Stable cardiomegaly and prominence of the central vascular markings.. Mediastinal contours are unchan ged. IMPRESSION: Cardiomegaly with apparent improvement of central congestive changes since 2019.
[2024-04-26 13:57] VITALS: TEMP 98.1
[2024-04-26 14:00] VITALS: BP 103/50; O2SAT 96
== END 2024-04-26 13:13 | disposition short-term general hospital (02) ==
LOC: ER 08:49
DX: K92.2 Gastrointestinal hemorrhage, unspecified (principal); D62 Acute posthemorrhagic anemia; R53.1 Weakness; I10 Essential (primary) hypertension; E66.09 Other obesity due to excess calories; Z88.0 Allergy status to penicillin
CPT/HCPCS: 85025; 81001; 36415; 86900; 86850; 86901; 86920 ×2; 83690; 80053; 74177; 71045; 99285; Q9967; J2470; J2405; P9016; J7050 ×3; J7040